=== PATIENT | female | born 1940 | race Caucasian/White ===

== ENCOUNTER → 2017-10-22 08:04 | Outpatient (CLI) | payer MEDICARE, BC, SELFPAY ==
[2017-10-22 09:22] LABS: Absolute Lymphocyte Count 1.45 X10^3/ul (0.83-4.51); Absolute Neutrophil Count 7.7 X10^3/uL (2.0-7.7); Eosinophil# 0.02 X10^3/uL; Eosinophils% 0.2 % (0-5); Hematocrit 44.1 % (37-47); Hemoglobin 14.4 g/dl (12.0-15.0); Lymphocyte # 1.45 X10^3/ul (4.0); Lymphocyte % 14.7 % (19-41); Mean Corp Hgb Conc 32.7 g/gl (32-36); Mean Corpuscular Hgb 30.6 pg (27.0-32.0); Mean Corpuscular Volume 93.6 fL (81-99); Mean Platelet Vol. 10.6 fl (6.2-12.0); Monocyte# 0.68 X10^3/uL; Monocyte% 6.9 % (0-10); Platelet Count 266 K/mm3 (150-450); RBC Distribution Width SD 44.6 fl (35.1-43.9); Red Blood Count 4.71 M/mm3 (4.2-5.4); White Blood Count 9.9 K/mm3 (4.4-11.0)
[2017-10-22 09:35] LABS: POSITIVE COUNT NO; POSITIVE DIFFERENTIAL NO; POSITIVE MORPHOLOGY NO
[2017-10-22 09:46] LABS: ALB/GLOB Ratio 1.1 RATIO (0.9-2.4); AST(SGOT) 12 U/L (15-37); Alanine Aminotransfer ALT/SGPT 24 U/L (13-56); Alkaline Phosphatase 65 U/L (45-117); Anion Gap 7 (5-15); BUN 17 mg/dL (7-18); BUN/Creat Ratio 19.3 RATIO (10-20); Calcium,Total 9.2 mg/dL (8.5-10.1); Chloride 99 mmol/L (98-107); Creatinine, Serum 0.88 mg/dL (0.55-1.02); EST Glomerular Filtration Rate 66 mL/min (>60); Est Glom Filt Rate - Afr Amer 80 mL/min (>60); Globulin 3.7 g/dL (2.2-4.2); Glucose 94 mg/dL (74-106); Potassium 3.3 mmol/L (3.5-5.1); Protein, Total 7.7 g/dL (6.4-8.2); Sodium Level 138 mmol/L (136-145)
== END ==
PROVIDERS: Family Provider Family Medicine; PCP Family Medicine; Visit Provider Internal Medicine Rheumatology
DX: M06.4 Inflammatory polyarthropathy (principal); Z79.899 Other long term (current) drug therapy; M79.7 Fibromyalgia; M18.11 Unilateral primary osteoarthritis of first carpometacarpal joint, right hand; M19.012 Primary osteoarthritis, left shoulder; M15.9 Polyosteoarthritis, unspecified; M17.0 Bilateral primary osteoarthritis of knee
CPT/HCPCS: 36415; 80053; 85025

== ENCOUNTER → 2018-04-10 08:01 | Outpatient (CLI) | payer MEDICARE, BC, SELFPAY ==
[2018-04-10 10:03] LABS: Absolute Lymphocyte Count 1.63 X10^3/ul (0.83-4.51); Absolute Neutrophil Count 3.4 X10^3/uL (2.0-7.7); Basophil# 0.04 X10^3/uL; Basophil% 0.7 % (0-1); Eosinophil# 0.21 X10^3/uL; Eosinophils% 3.6 % (0-5); Hematocrit 41.9 % (37-47); Hemoglobin 13.4 g/dl (12.0-15.0); Lymphocyte # 1.63 X10^3/ul (4.0); Lymphocyte % 28.1 % (19-41); Mean Corpuscular Volume 93.7 fL (81-99); Mean Platelet Vol. 11.1 fl (6.2-12.0); Monocyte# 0.52 X10^3/uL; Neutrophil % 58.4 % (47-70); Platelet Count 237 K/mm3 (150-450); RBC Distribution Width CV 12.9 % (11.6-14.6); RBC Distribution Width SD 44.3 fl (35.1-43.9); Red Blood Count 4.47 M/mm3 (4.2-5.4); White Blood Count 5.8 K/mm3 (4.4-11.0)
[2018-04-10 10:04] LABS: POSITIVE COUNT NO; POSITIVE DIFFERENTIAL NO; POSITIVE MORPHOLOGY NO
[2018-04-10 12:13] LABS: AST(SGOT) 20 U/L (15-37); Alanine Aminotransfer ALT/SGPT 21 U/L (13-56); Albumin, Serum 3.8 g/dL (3.2-5.0); Alkaline Phosphatase 63 U/L (45-117); Anion Gap 8 (5-15); BUN 20 mg/dL (7-18); BUN/Creat Ratio 18.2 RATIO (10-20); Calcium,Total 9.1 mg/dL (8.5-10.1); Chloride 103 mmol/L (98-107); EST Glomerular Filtration Rate 51 mL/min (>60); Est Glom Filt Rate - Afr Amer 62 mL/min (>60); Globulin 3.7 g/dL (2.2-4.2); Glucose 93 mg/dL (74-106); Potassium 3.7 mmol/L (3.5-5.1); Protein, Total 7.5 g/dL (6.4-8.2); Sodium Level 140 mmol/L (136-145)
== END ==
PROVIDERS: Family Provider Family Medicine; PCP Family Medicine; Visit Provider Internal Medicine Rheumatology
DX: M06.4 Inflammatory polyarthropathy (principal); Z79.899 Other long term (current) drug therapy; M79.7 Fibromyalgia; M18.11 Unilateral primary osteoarthritis of first carpometacarpal joint, right hand; M19.012 Primary osteoarthritis, left shoulder; M15.9 Polyosteoarthritis, unspecified; M17.0 Bilateral primary osteoarthritis of knee; K76.0 Fatty (change of) liver, not elsewhere classified; F32.89 Other specified depressive episodes; M51.37 Other intervertebral disc degeneration, lumbosacral region; M47.897 Other spondylosis, lumbosacral region; M18.9 Osteoarthritis of first carpometacarpal joint, unspecified
CPT/HCPCS: 36415; 80053; 85025

== ENCOUNTER → 2018-08-06 15:40 | Outpatient (CLI) | payer MEDICARE, BC, SELFPAY ==
--- NOTE | 2018-08-06 15:45 | CT_ITS ---
STUDY: CT LEFT SHOULDER REASON FOR EXAM: Female, 77 years old. Left shoulder osteoarthritis. RADIATION DOSAGE (If Supplied By Facility): CTDIvol = ( 42.81 ) mGy, DLP = ( 794.33 ) mGycm TECHNIQUE: The patient was scanned in a multi detector CT scanner. High resolution transaxial imaging was performed without the administration of intravenous contrast material. Sagittal and coronal images were reconstructed. Individualized dose optimization techniques were used for this CT. COMPARISON: . Comparison is made with prior MR of the left shoulder dated August 06, 2017. FINDINGS: There is severe osteoarthritis, with severe articular joint space narrowing, osteoarthritic spurring, articular remodeling, and with articular erosions. Normal glenoid rim, neck and visualized scapula. There is evidence of marginal osteophyte formation along the medial aspect of the humeral head with subchondral cystic changes. There is also evidence of hypertrophic arthrosis of the acromioclavicular joint. Normal coracoid process. Normal visualized lateral clavicle. There is moderate osteoarthritis with articular joint space narrowing and with osteoarthritic spurring. There is a Type II morphology (curved), with a neutral orientation. There is cephalad migration of the humeral head suggestive of rotator cuff pathology. CT/Extremity Upper without Contra IMPRESSION: Degenerative changes as described with findings suggestive of rotator cuff pathology. Electronically Signed: Roderick Calderon MD at 15:04 EST Tel [phone], Service support ,
== END ==
PROVIDERS: Family Provider Family Medicine; PCP Family Medicine; Referring Provider Specialist; Visit Provider Specialist
DX: M19.012 Primary osteoarthritis, left shoulder (principal)
CPT/HCPCS: 73200

== ENCOUNTER 2018-09-09 07:08 | Inpatient (IN) | payer MEDICARE, BC, SELFPAY ==
--- NOTE | 2018-08-27 15:11 | EKG12_ITS ---
Test Reason : Blood Pressure : / mmHG Vent. Rate : 069 BPM Atrial Rate : 069 BPM P-R Int : 162 ms QRS Dur : 136 ms QT Int : 444 ms P-R-T Axes : 056 -31 -07 degrees QTc Int : 475 ms Normal sinus rhythm Possible Left atrial enlargement Left axis deviation Right bundle branch block Abnormal ECG Confirmed by CARLY NIXON, ELIZABETH ([id number]), fan mail editor AMARI BUTTERFIELD ([id number]) on 09/02/2018 2:43:21 PM Referred By: Luis Simmons Confirmed By:ELIZABETH CARROLL MD
[2018-08-27 15:37] VITALS: BP 135/65; PULSE 71; RESP 18; TEMP 36.8; O2SAT 97; BMI 35.3
[2018-08-27 17:41] LABS: Absolute Lymphocyte Count 2.22 X10^3/ul (0.83-4.51); Absolute Neutrophil Count 4.5 X10^3/uL (2.0-7.7); Basophil# 0.03 X10^3/uL; Basophil% 0.4 % (0-1); Eosinophil# 0.24 X10^3/uL; Eosinophils% 3.2 % (0-5); Hematocrit 41.4 % (37-47); Hemoglobin 12.9 g/dl (12.0-15.0); Lymphocyte # 2.22 X10^3/ul (4.0); Lymphocyte % 29.2 % (19-41); Mean Corp Hgb Conc 31.2 g/gl (32-36); Mean Corpuscular Hgb 28.8 pg (27.0-32.0); Mean Corpuscular Volume 92.4 fL (81-99); Mean Platelet Vol. 10.6 fl (6.2-12.0); Monocyte# 0.61 X10^3/uL; Neutrophil # 4.49 X10^3/uL (2.7-7.7); Neutrophil % 58.9 % (47-70); Platelet Count 250 K/mm3 (150-450); RBC Distribution Width CV 13.9 % (11.6-14.6); RBC Distribution Width SD 46.8 fl (35.1-43.9); Red Blood Count 4.48 M/mm3 (4.2-5.4); White Blood Count 7.6 K/mm3 (4.4-11.0)
[2018-08-27 17:46] LABS: POSITIVE COUNT NO; POSITIVE DIFFERENTIAL NO; POSITIVE MORPHOLOGY NO
[2018-08-27 18:19] LABS: Anion Gap 11 (5-15); BUN 15 mg/dL (7-18); Calcium,Total 8.7 mg/dL (8.5-10.1); Chloride 104 mmol/L (98-107); EST Glomerular Filtration Rate 57 mL/min (>60); Est Glom Filt Rate - Afr Amer 69 mL/min (>60); Estimated Creatinine Clearance 36.12 ml/min; Glucose 119 mg/dL (74-106); Potassium 3.8 mmol/L (3.5-5.1); Sodium Level 140 mmol/L (136-145); Thyroid Stim Hormone (TSH) 5.01 uIU/mL (0.358-3.74)
[2018-08-27 19:15] LABS: Hemoglobin A1c 5.7 % (4.2-6.3)
--- NOTE | 2018-08-27 22:05 | PCM.HP.BLA ---
History and Physical DATE OF SURGERY: 09/09/2018 SCHEDULED PROCEDURE: left reverse total shoulder arthroplasty HISTORY OF PRESENT ILLNESS: Patient denies any specific trauma or injury. Patient states the pain can reach as high as a 10/10. Her pain is aching and stabbing. Patient is right-hand dominant. Patient does state she has difficult time with activities of daily living that require overhead lifting. She also increased pain with driving or reaching behind her back. Patient does feel weaker in the left arm when compared to the right. Pain does wake her at night. Patient has tried oral medications consisting of [place] with pain management. She has also had previous corticosteroid injections with only temporary relief for a few weeks. Patient has had previous MRI of the left shoulder which does reveal degenerative tearing and atrophy of the rotator cuff tendons was small area consistent with primary osteoarthritis with subsequent rotator cuff tear. Patient does have a previous right total shoulder replacement with Dr. Tavera. Patient currently denies any chest pain, shortness of breath, fevers chills, or recent infections. Patient does have a medical history pertinent for rheumatoid arthritis in which she has been on Enbrel and Plaquenil in which she sees Dr. Dubon. Patient also has fibromyalgia, hypertension, and diabetes which she states is controlled on diet. After failing conservative measures and discussing all treatment options with Dr. Luis Simmons, the patient would like to proceed with a left reverse total shoulder arthroplasty. REVIEW OF SYSTEMS: ROS: Const: Denies anorexia, anxiety, change in appetite, fever, hard of hearing, vision problems and weight change. CV: Denies chest pain, heart murmur, irregular heartbeat and peripheral vascular disease. Resp: Denies asthma, cough, pneumonia, sleep apnea, SOB, tuberculosis and wheezing. GI: Denies constipation, diarrhea, difficulty swallowing, heartburn, nausea, bloody stools and vomiting. : Urinary: denies incontinence. Musculo: Reports trouble walking and weakness, but denies leg swelling and limp. Skin: Denies Raynaud's, history of shingles and tattoo. Neuro: Reports difficulty with balance but denies ambulatory dysfunction, dizziness, numbness/tingling and tremor. Psych: Reports depression, but denies anxiety, insomnia, mental illness and stress. Bro/Lymph: Denies anemia, bleeding/bruising tendency and past transfusion. Reviewed, no changes. PAST MEDICAL HISTORY: Advance Care Plan: Other Directive, LIVING WILL Effective Date: 02/18/2017 Other Directive, POA Effective Date: 02/18/2017 PMH: Medical Problems: Fibromyalgia, High Blood Pressure, Thyroid Disease Diabetes - CONTROLLED Arthritis Accidents: None Surgical Hx: Tubal Ligation - (1964) [place] Carpal Tunnel - 10 YEARS AGO BOTH WRISTS- [facility] Knee Replacement - ABOUT 3 YEARS AGO LEFT KNEE- [place] bladder tuck, RT Shoulder Replacement, ALL Teeth Pulled RT TKR - (09/21/2012) [facility] @ [place] LT Leg Vein Stripping - (2015) [place] Carpal Tunnel Release RT - DR PRUETT AT [facility] RT Hand Surgery - (2016) [facility] Anesthesia Complications: None Assistive Devices: Glasses, Dentures Reviewed and updated. 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 Personal Habits: Smoking: Patient has never smoked.Cigarette Use: Never.Alcohol: Denies use.Drug Use: Denies Use.Enjoy Exercising: Exercises 1-3 X/Week. Reviewed, no changes. VITALS: Ht: 60 Wt: 184lb Wt k.462 BMI: 35.9 BP: 148/88 Pulse: 77 Resp: 16 T: 98.1 T: 36.7C ALLERGIES: Lovastatin Sulfa Paxil MEDICATIONS: Levothyroxine Sodium 125 mcg 1 tab PO daily, Bupropion HCL XL 300 mg 1 tab PO daily, Ropinirole HCL 2 mg 2 qday, Hydrochlorothiazide 25 mg 1 PO q day, Prevacid 30 mg 1 PO q day, Gabapentin 400 mg 2po qday, Aspir-81 81 mg 1 by mouth every day, Plaquenil 200 mg as needed, Fish Oil 1000 mg 1 capsule 1x/day by mouth, Multivitamins 1 by mouth every day, Enbrel 50 mg/ml 1 injection weekly, [place] 5-325 mg 1-2 by mouth every 6 hour as needed pain PRE-OP EXAM: General appearance:NORMAL Other: Eyes: Conjunctivae and lids: NORMAL Pupils: ERR Ears, Nose, Mouth, and Throat: NORMAL Other: Inspection of lips, teeth and gums: NORMAL Other: Neck: Examination of neck: no masses noted. Respiratory: Assessment of respiratory effort: NORMAL Other: Auscultation of lungs: clear to auscultation no wheezes, rhonchi or rales. Cardiovascular: Auscultation of heart: regular rate and rhythm, no murmurs, gallops or rubs. Exam of carotid arteries: NORMAL Other: Gastrointestinal: Exam of abdomen: soft, nontender, nondistended bowel sounds present. PHYSICAL EXAMINATION: Left shoulder is cool to touch without erythema. She has tenderness to palpation over the lateral and anterior left shoulder. There is crepitus with range of motion. Range of motion left shoulder: Forward elevation 100, internal rotation T12 on the left and L5 on the right, external rotation -10 on the left and passive to neutral. Resisted range of motion left shoulder 4/5 supraspinatus strength testing. Sensation intact to light touch to axillary, radial, median, and ulnar nerve distribution. IMAGING STUDIES: 1. X-rays of the left shoulder reveal superior migration of the humeral head with joint space narrowing and inferior osteophyte formation on the humeral head. No acute findings for fracture dislocation. 2. MRI of the left shoulder does reveal femoral head flattening with cystic changes with inferior osteophyte formation. There is degenerative tearing and atrophy of the rotator cuff tendons with small area of full-thickness tearing. This is consistent with primary osteoarthritis with subsequent rotator cuff tear. IMPRESSION: 1. 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 Rheumatoid arthritis 3. Hypertension 4. Fibromyalgia 5. Thyroid disease 6. Diabetes controlled on diet PLAN: Dr. Luis Simmons did discuss and review with the patient all treatment options including surgical versus nonsurgical options. Patient does wish to proceed with the above-stated procedure. Potential risks, benefits, and complications of the procedure were discussed in detail including but not limited to , infection, nerve and blood vessel damage, persistent pain, numbness, tingling, paresthesias, blood clot, pulmonary embolism, and requirement for possible further surgery. The patient expressed full understanding and has no further questions for the doctor. Patient does agree to proceed with the above-stated procedure and has signed the surgery consent form. This dictation was created using voice recognition software. Phonetic and/or grammatical errors may exist.. ___ I have re-examined the patient. There are no clinical changes since date of exam. ___ See progress notes for changes. ___ Dictated on admission Date: Time: Signature:
[2018-09-09] VITALS (9 sets, daily range): BP systolic 99–151; BP diastolic 54–74; PULSE 60–76; RESP 16–18; TEMP 36.5–37.8; O2SAT 94–99; BMI 35.3; BMI 35.4
[2018-09-09] MEDS: Celecoxib 200 MG Capsule 400 MG PO (07:44)
[2018-09-09] MEDS: Acetaminophen 500 MG Tablet 1000 MG PO ×3 (07:44→21:04)
[2018-09-09 07:51] LABS: Bedside Glucose 120 mg/dL (70-110)
[2018-09-09] MEDS: Cefazolin 2 GM in 0.9% Normal Saline 100 ML IV (08:54)
--- NOTE | 2018-09-09 09:58 | PCM.OPRPT ---
Report of Operation Date of Procedure: 09/09/18 Pre-Operative Diagnosis: Left shoulder cuff tear arthropathy Post-Operative Diagnosis: Left shoulder cuff tear arthropathy Surgery/Procedure Performed:: Left reverse total shoulder replacement Description of Surgical Findings:: Stable shoulder rental coordinator: Tiffanie Roberts Type of Anesthesia:: General Anesthesiologist: Sher Adamson Special Medications: 2 g Ancef, 1 g TXA at incision, 1 g TXA closure, 10 mg Decadron, joint cocktail (5 mg Duramorph, 30 mL of 0.5% Ropivicaine, 1000 units of epinephrine, 30 mg of Toradol), 1 g vancomycin IV throughout the case Specimen's removed: Bony cuts Estimated Blood Loss (mL): 100 Fluids Replaced: 900 ml crystalloid Description of Procedure: Components used 1. Reunion glenoid baseplate from [place] for reverse TSA 2. Angwin reunion 32+6 mm Glenosphere 3. [place] reunion 32 mm, 4mm humeral liner 4. [place] reunion reverse TSA humeral adapter tray 4mm 5. [place] reunion humeral stem primary press-fit 12mm size Brief history/Operative indications: 78 yo F with history of L shoulder pain and cuff tear arthropathy. Patient failed conservative measures as mentioned in the H&P. After discussion of risk and benefits of reverse total shoulder replacement including but not limited to blood loss, DVTs, PEs, nerve vessel damage, infection, general risk of anesthesia including loss of life, instability and stiffness patient demonstrating understanding wish to proceed was able to sign informed consent. Medical clearance was obtained. Procedure: On the date of the procedure, patient's L upper extremity was marked in the preoperative area. Patient was taken back to the operating room where they were placed on the table in the supine position. Anesthesia assumed control of the C-spine and airway, then administered anesthetic. All bony prominences were identified well-padded, the head was secured and the patient was placed in the beachchair position at about 35? inclination. Anesthesia remained in control of the C-spine airway throughout the remainder of the procedure. Patient was then appropriately fastened to the table and the L upper extremity was prepped in a sterile fashion. The surgeons then scrubbed. Upon reentering the room, the L upper extremity was draped in a sterile fashion and the incision was marked out. Timeout was called, everyone agreed upon the side, the site, the procedure to be performed, patient identity and antibiotics given. Incision was taken down through skin and subcutaneous tissue, fat down to fascia. The stripe of the deltopectoral interval and cephalic vein were identified and blunt dissection was used to retract the deltoid. The cephalic vein was retracted laterally. Clavipectoral fascia was then incised and a cobra retractor was placed in the wound. The proximal one third of the pectoralis major insertion was released. Pectoralis tendon insertion was used to tenodesed the biceps tendon which was identified in the bicipital groove. Tenodesis was done with #1 Vicryl. Proximally we followed the biceps tendon after transecting it into the rotator interval. The rotator interval was split and the arm was externally rotated. The split was 1 cm medial to the bicipital groove. Subscapularis tendon was released. We released down the anterior portion of the humeral head and a wall elevator was used to release the inferior portion of the humeral head. The arm was externally rotated and the shoulder was dislocated. The humeral head cutting guide was used to make humeral cut. This was done at 20? retroversion. Once his humeral head cut was made humerus was retracted out of the way and the glenoid was exposed. After exposing the glenoid, the labrum and the remaining proximal biceps were debrided. At this time we are able to view the entire outer edge of the glenoid. A central pin was placed we sequentially reamed over this central pin to 32mm. Once this was completed the central pedicle was drilled. The glenoid baseplate was impacted into place. Wound was closely irrigated out with normal saline we then drilled sequentially for 4 screws. Screws were placed superiorly and inferiorly and tightened down the screws. Then anteriorly and posteriorly. Once the screws were appropriately tightened into place the glenoid baseplate was compressed against the exposed subchondral bone. Locking caps were placed and a 32+6 mm glenosphere was impacted into place engaging the Loya taper. The central screw was then tightened into place. Attention was then turned towards the humerus. The humerus was again externally rotated exposing the proximal portion of the humerus. Central canal finder was then used to open up the canal. We reamed to a 12mm reamer. We then broached to a 12mm stem. We trialed the 4mm liner, with the 4mm humeral baseplate. We obtained an adequate reduction at this time with a nice stable shoulder. Good internal rotation to the gluteus, forward elevation to 140?, external rotation to 20?. Final components were then assembled on the back table, trials were removed and the wound was copiously irrigated with normal saline after dislocating the shoulder. Once the final components were assembled they were impacted into place. Shoulder was then reduced and found to be stable with good range of motion. Subscapularis tendon not repairable. The wound was then copiously irrigated out with a 1 L normal saline lavage. The deltopectoral fascia was then closed using #1 Vicryl skin was closed using 2-0 Vicryl interrupted sutures and final skin closure was done with 3-0 Monocryl. Steri-Strips are placed for final skin closure. Sterile dressing was placed patient was then placed in a sling and awakened by anesthesia. Patient was then transferred to the PACU for recovery. Postoperative plan: Patient will be admitted to the hospital overnight. They will get physical therapy starting in 2 weeks with normal postoperative regimen. Patient will be placed on aspirin daily for DVT prophylaxis. The first postoperative appointment will be in 2 weeks for wound check and initiation of phase 1 physical therapy. During the course of the procedure the physician music assistant played a vital role. His intimate knowledge of my steps in the procedure aided in safe and expedient completion of the procedure. The PA played a vital rolls in positioning particularly in obtaining the appropriate beach chair position and securing the patient's body and head to the table. The PA was also vital in the retraction of soft tissues during the exposure and especially the glenoid work as this is a vital part of the procedure to prevent neurovascular damage. the PA was also vital and protecting soft tissues during times of bony cuts and reaming. He also played a vital role in closure with my direct supervision. The PA was also important during reduction and dislocation of the joint and trials intraoperatively. Grafts/Implants Used: Angwin reunion reverse total shoulder - Complications None - Admit VTE Documentation VTE Present on Admission: No VTE Mechan Device Prophylaxis: SCD's, Thigh High BRIGID Hose VTE Pharm Prophylaxis ordered?: Yes
[2018-09-09] MEDS: Scopolamine 1mg/72hr Patch 1 PATCH TD (10:42)
--- NOTE | 2018-09-09 10:50 | RAD_ITS ---
STUDY: X-RAY - LEFT SHOULDER REASON FOR EXAM: Female, 78 years old. Total shoulder arthroplasty. TECHNIQUE: 1 view(s) of the shoulder. COMPARISON: Comparison is made with prior study dated June 26, 2017. FINDINGS: The patient is status post reverse shoulder replacement. There is good alignment. Postoperative soft tissue changes. RAD/Shoulder One View IMPRESSION: Status post left reverse shoulder replacement. There is good alignment. Electronically Signed: Roderick Calderon MD at 13:47 EST Tel [phone], Service support ,
[2018-09-09] MEDS: Lactated Ringers 1,000 ML 125 ML IV ×3 (11:03→22:28)
[2018-09-09 11:16] LABS: Bedside Glucose 110 mg/dL (70-110)
--- NOTE | 2018-09-09 13:59 | PCM.CONS.GEN ---
Reason for Consult Date of Consultation: 09/09/18 Reason for Consultation: Consult requested by Dr. Simmons for postoperative medical management History of Present Illness: The patient is a 78 year old F 78-year-old white female who underwent a left shoulder replacement by Dr. Simmons. Postoperatively, patient is feeling well still has some numbness in her left arm from nerve block. Denies any other complaints. [] Past Medical History Medical History: Medical History (Last Updated 09/09/18 @ 14:03 by Fabrice Bolanos DO) Depression F32.9 Diabetes mellitus type 2, diet-controlled E11.9 Hypothyroidism E03.9 Rheumatoid arthritis M06.9 HTN (hypertension) I10 Allergies lovastatin Allergy (Verified 12/14/15 06:23) Itching paroxetine HCl [From Paxil] Allergy (Verified 12/14/15 06:23) Hives, Itching Sulfa (Sulfonamide Antibiotics) Allergy (Verified 08/27/18 15:16) Itching Home Medications: Ambulatory Orders Medication Instructions Recorded Gabapentin [Neurontin] 800 mg PO QHS 10/05/15 Hydrochlorothiazide [Hctz] 25 mg PO DAILY 10/05/15 Hydrocodone Bitart/Apap 5-325 1 - 2 tablet PO Q6H PRN 10/05/15 [[place] 5MG-325MG] Hydroxychloroquine [Plaquenil] 200 mg PO DAILYCM 10/05/15 Lansoprazole [Prevacid] 30 mg PO DAILY 10/05/15 Levothyroxine [Synthroid] 125 mcg PO DAILY 10/05/15 [place]-3 Fatty Acids [Fish Oil] 1,000 mg PO DAILY 10/05/15 Ropinirole HCl [Requip] 1 mg PO BREAKFAST 10/05/15 Ropinirole HCl [Requip] 2 mg PO QHS 10/05/15 buPROPion XL [Wellbutrin Xl] 300 mg PO DAILY 10/05/15 Multivitamins,Therapeutic 1 tablet PO DAILY 12/13/15 [Multivitamin] Etanercept [Enbrel] 50 mg SQ Q7D 04/18/16 Aspirin [Aspir 81] 81 mg PO DAILY 08/27/18 Surgical History: Surgical History (Last Updated 09/09/18 @ 14:03 by Fabrice Bolanos DO) H/O tubal ligation Z98.51 History of carpal tunnel release Z98.890 History of left knee replacement Z96.652 History of right shoulder replacement Z96.611 Smoking Status: Never smoker Tobacco Use: Non-smoker Alcohol: None Drugs: None - *Family History Maternal History Items: - - no CAD Review of Systems Constitutional: Denies: Anorexia, Chills, Fever Eyes: Denies: Blurred vision, Double vision HEENT: Denies: Head Aches, Sinus Congestion, Sinus Drainage Cardiovascular: Denies: Chest Pain, Palpitations Respiratory: Denies: Cough, Shortness of breath at rest, Sputum production Gastrointestinal: Denies: Abdominal Pain, Nausea, Vomiting Skin: Denies: Dryness, Jaundice Neurological: Denies: Numbness, Tingling, Focal weakness Psychiatric: Denies: Anxiety Hematologic/ Lymphatic: Denies: Easy Bruising, Easy Bleeding, Hx of blood clot Comment: A 10 point review of systems were negative except as mentioned in the history of present illness and the other review of systems. - Physical Exam General: Alert, Cooperative, No apparent distress HEENT: Atraumatic, Normocephalic Oral: Moist Mucosa, No Gingival or Mucosal Lesions/ Ulcerations Neck: No Nodes, Thyroid Normal Size and Texture Lungs: Clear to auscultation, Normal air movement, No rhonchi, No wheeze Cardiovascular: Regular rate, Regular Rhythm, Normal S1, Normal S2 Abdomen: Bowel Sounds Present, Soft, Non Tender, Non-Distended, No Hepato-splenomegaly Extremities: No edema, No Calf Tenderness, - - Left arm bandaged in a sling, did not remove Skin: No rashes, No breakdown Psych/Mental Status: Normal Affect, Appropriate Vital Signs Temp Pulse Resp BP Pulse Ox 36.5 C L 66 16 110/57 L 99 09/09/18 12:02 09/09/18 12:02 09/09/18 12:02 09/09/18 12:02 09/09/18 12:02 Oxygen Flow Rate (L/min) 2 Oxygen Delivery Method Room Air Weight: 85.1 kg Body Mass Index (BMI) 35.4 Finger Stick Blood Glucose 110 Intake and Output for Last 24 Hours 09/07/18 09/08/18 09/09/18 23:59 23:59 23:59 Intake Total 1200 / 1200 Balance 1200 / 1200 POC Glucose 09/09/18 09/09/18 11:12 07:29 POC Glucose 110 120 H Assessment/Plan 1. Diabetes mellitus type 2 Diet controlled A1c from 12.27 was 5.7 Would just monitor for now. 2. HTN Controlled Continue with HCTZ 3. Hypothyroidism continue with Synthroid 4. s/p left shoulder replacement mgmt per orthopaedics 5. DVT prophylaxis: Will defer to the primary service For the consult. The hospital service will follow along during the course of this hospitalization. Code Visit Inpatient E&M: 18861 Init Hosp L2
--- NOTE | 2018-09-09 14:04 | CON.PCM_ITS ---
Reason for Consult Date of Consultation: 09/09/18 Reason for Consultation: Consult requested by Dr. Simmons for postoperative medical management History of Present Illness: The patient is a 78 year old F 78-year-old white female who underwent a left shoulder replacement by Dr. Simmons. Postoperatively, patient is feeling well still has some numbness in her left arm from nerve block. Denies any other complaints. [] Past Medical History Medical History: Medical History (Last Updated 09/09/18 @ 14:03 by Fabrice Bolanos DO) Depression F32.9 Diabetes mellitus type 2, diet-controlled E11.9 Hypothyroidism E03.9 Rheumatoid arthritis M06.9 HTN (hypertension) I10 Allergies lovastatin Allergy (Verified 12/14/15 06:23) Itching paroxetine HCl [From Paxil] Allergy (Verified 12/14/15 06:23) Hives, Itching Sulfa (Sulfonamide Antibiotics) Allergy (Verified 08/27/18 15:16) Itching Home Medications: Ambulatory Orders Medication Instructions Recorded Gabapentin [Neurontin] 800 mg PO QHS 10/05/15 Hydrochlorothiazide [Hctz] 25 mg PO DAILY 10/05/15 Hydrocodone Bitart/Apap 5-325 1 - 2 tablet PO Q6H PRN 10/05/15 [[place] 5MG-325MG] Hydroxychloroquine [Plaquenil] 200 mg PO DAILYCM 10/05/15 Lansoprazole [Prevacid] 30 mg PO DAILY 10/05/15 Levothyroxine [Synthroid] 125 mcg PO DAILY 10/05/15 [place]-3 Fatty Acids [Fish Oil] 1,000 mg PO DAILY 10/05/15 Ropinirole HCl [Requip] 1 mg PO BREAKFAST 10/05/15 Ropinirole HCl [Requip] 2 mg PO QHS 10/05/15 buPROPion XL [Wellbutrin Xl] 300 mg PO DAILY 10/05/15 Multivitamins,Therapeutic 1 tablet PO DAILY 12/13/15 [Multivitamin] Etanercept [Enbrel] 50 mg SQ Q7D 04/18/16 Aspirin [Aspir 81] 81 mg PO DAILY 08/27/18 Surgical History: Surgical History (Last Updated 09/09/18 @ 14:03 by Fabrice Bolanos DO) H/O tubal ligation Z98.51 History of carpal tunnel release Z98.890 History of left knee replacement Z96.652 History of right shoulder replacement Z96.611 Smoking Status: Never smoker Tobacco Use: Non-smoker Alcohol: None Drugs: None - *Family History Maternal History Items: - - no CAD Review of Systems Constitutional: Denies: Anorexia, Chills, Fever Eyes: Denies: Blurred vision, Double vision HEENT: Denies: Head Aches, Sinus Congestion, Sinus Drainage Cardiovascular: Denies: Chest Pain, Palpitations Respiratory: Denies: Cough, Shortness of breath at rest, Sputum production Gastrointestinal: Denies: Abdominal Pain, Nausea, Vomiting Skin: Denies: Dryness, Jaundice Neurological: Denies: Numbness, Tingling, Focal weakness Psychiatric: Denies: Anxiety Hematologic/ Lymphatic: Denies: Easy Bruising, Easy Bleeding, Hx of blood clot Comment: A 10 point review of systems were negative except as mentioned in the history of present illness and the other review of systems. - Physical Exam General: Alert, Cooperative, No apparent distress HEENT: Atraumatic, Normocephalic Oral: Moist Mucosa, No Gingival or Mucosal Lesions/ Ulcerations Neck: No Nodes, Thyroid Normal Size and Texture Lungs: Clear to auscultation, Normal air movement, No rhonchi, No wheeze Cardiovascular: Regular rate, Regular Rhythm, Normal S1, Normal S2 Abdomen: Bowel Sounds Present, Soft, Non Tender, Non-Distended, No Hepato- splenomegaly Extremities: No edema, No Calf Tenderness, - - Left arm bandaged in a sling, did not remove Skin: No rashes, No breakdown Psych/Mental Status: Normal Affect, Appropriate Vital Signs Temp Pulse Resp BP Pulse Ox 36.5 C L 66 16 110/57 L 99 09/09/18 12:02 09/09/18 12:02 09/09/18 12:02 09/09/18 12:02 09/09/18 12:02 Oxygen Flow Rate (L/min) 2 Oxygen Delivery Method Room Air Weight: 85.1 kg Body Mass Index (BMI) 35.4 Finger Stick Blood Glucose 110 Intake and Output for Last 24 Hours 09/07/18 09/08/18 09/09/18 23:59 23:59 23:59 Intake Total 1200 / 1200 Balance 1200 / 1200 POC Glucose 09/09/18 09/09/18 11:12 07:29 POC Glucose 110 120 H Assessment/Plan 1. Diabetes mellitus type 2 Diet controlled A1c from 12.27 was 5.7 Would just monitor for now. 2. HTN Controlled Continue with HCTZ 3. Hypothyroidism continue with Synthroid 4. s/p left shoulder replacement mgmt per orthopaedics 5. DVT prophylaxis: Will defer to the primary service For the consult. The hospital service will follow along during the course of this hospitalization. Code Visit Inpatient E&M: 19568 Init Hosp L2
[2018-09-09] MEDS: Famotidine 20 MG Tablet PO (14:15)
[2018-09-09] MEDS: Cefazolin 1 GM/50 ML BAG IV (16:40)
[2018-09-09] MEDS: buPROPion (XL) 300 MG TABLET.XL PO (21:03)
[2018-09-09] MEDS: Senna/Docusate Sodium 1 Tablet 2 TABLET PO (21:03)
[2018-09-09] MEDS: Gabapentin 400 MG Capsule 800 MG PO (21:03)
[2018-09-09] MEDS: Meloxicam 7.5 MG Tablet PO (21:04)
[2018-09-09] MEDS: Morphine 2 MG/ML Syringe IV (22:08)
[2018-09-09] MEDS: Pramipexole Di-HCl 1 MG Tablet PO (22:14)
[2018-09-09] MEDS: Ondansetron 4 MG/2 ML Vial IV (22:15)
[2018-09-10] MEDS: proMETHazine 25 MG/ML Syringe 12.5 MG IV (00:54)
[2018-09-10] MEDS: Ketorolac 15 MG/ML Vial IV (00:54)
[2018-09-10] MEDS: Cefazolin 1 GM/50 ML BAG IV (00:56)
--- NOTE | 2018-09-10 00:56 | NURSING ---
Addendum entered by Teresita Holloway 09/10/18 03:27: PT C/O FEELING LIKE HER BLADDER IS NOT EMPTYING, BLADDER SCANNED AFTER VOIDING 300CC, FOR 700CC. WILL CONTINUE TO MONITOR THE PTS OUTPUT. Original Note: pt c/o nausea, phenergan given, also c/o pain 03/10 to the left shoulder, toradol given
[2018-09-10 03:00] VITALS: BP 116/54; PULSE 74; RESP 16; TEMP 36.9; O2SAT 93
[2018-09-10] MEDS: Acetaminophen 500 MG Tablet 1000 MG PO ×3 (06:46→22:29)
[2018-09-10] MEDS: Levothyroxine 125 MCG Tablet PO (06:46)
[2018-09-10] MEDS: Lactated Ringers 1,000 ML 125 ML IV (07:24)
--- NOTE | 2018-09-10 07:25 | NURSING ---
pt awoken for am meds, very drowsy, ambulated to the restroom, voided only 50 cc, pt st cathed for 1000cc urine. sleeping, o2 on at 2lnc
[2018-09-10 07:45] VITALS: BP 116/60; PULSE 73; RESP 18; TEMP 36.8; O2SAT 92
[2018-09-10] MEDS: Famotidine 20 MG Tablet PO (07:48)
[2018-09-10] MEDS: Aspirin 325 MG Tablet PO (07:48)
[2018-09-10] MEDS: Multivitamins,Therapeutic Tablet 1 TABLET PO (07:48)
[2018-09-10] MEDS: Pramipexole Di-HCl 0.5 MG Tablet PO (07:48)
[2018-09-10] MEDS: Hydroxychloroquine 200 MG Tablet PO (07:48)
[2018-09-10] MEDS: Pantoprazole Sodium 40 MG Tablet PO (07:49)
[2018-09-10] MEDS: hydroCHLOROthiazide 25 MG Tablet PO (07:49)
[2018-09-10] MEDS: Meloxicam 7.5 MG Tablet PO ×2 (07:49→22:28)
--- NOTE | 2018-09-10 09:14 | PN.ORTHO_ITS ---
Subjective: The patient was sitting in bed upon examination. Patient denies any chest pain, shortness of breath, dizziness, lightheadedness, nausea or vomiting, or calf pain. Pain is controlled on medications. No adverse overnight events. Patient did have nausea overnight but states this is improved this morning. Patient currently is very drowsy and sleepy since getting morphine and Phenergan overnight. Objective: Vital signs stable, afebrile. patient currently on 2 L of nasal cannula oxygen Dressing is C/D/I Ultra-sling fitting appropriately Sensation intact to axillary, radial, median, and ulnar distribution Motor intact to AIN, PIN, and ulnar nerve - Physical Exam General: Alert, Oriented x3, Cooperative, No apparent distress Vital Signs Temp Pulse Resp BP Pulse Ox 98.2 F 73 18 116/60 92 09/10/18 07:45 09/10/18 07:45 09/10/18 07:45 09/10/18 07:45 09/10/18 07:45 Oxygen Flow Rate (L/min) 2 Oxygen Delivery Method Nasal Cannula Weight: 85.1 kg Body Mass Index (BMI) 35.4 Finger Stick Blood Glucose 110 Intake and Output for Last 24 Hours 09/08/18 09/09/18 09/10/18 23:59 23:59 23:59 Intake Total 2771 / 2771 1029 / 1029 Output Total 500 / 500 1100 / 1100 Balance 2271 / 2271 -71 / -71 POC Glucose 09/09/18 11:12 POC Glucose 110 Medical Necessity - Tobacco Use Smoking Status: Never smoker Tobacco Use: Non-smoker Assessment/Plan 1. S/P left reverse total shoulder arthroplasty POD #1 2. Continue Pain Medications: Tylenol and OxyIR 3. DVT Prophylaxis: Aspirin 325 mg once daily for 2 weeks postoperatively 4. PT/OT: Outpatient formal physical therapy will begin 2 weeks postoperatively. While in the hospital patient can work on elbow, wrist, hand range of motion only. Okay to do pendulum exercises. No range of motion of the left shoulder. 5. Continue postoperative medical management per medicine 6. Encouraged Incentive Spirometry 7. Disposition: Patient is not ready for discharge today. Plan will be for possible discharge home tomorrow. I would like physical therapy and oc cupational therapy evaluation to determine if patient is safe to go home. Patient lives with her son. This is her nondominant left shoulder that required surgery.
--- NOTE | 2018-09-10 09:32 | PCM.PN.HOSP ---
Subjective: Doing well, pain is controlled. States that sensation in her left arm has returned back to normal today. Denies any fevers, chills, shortness of breath, chest pain. Did require to be straight cathed x1 Vitals/I&O's: Vital Signs Temp Pulse Resp BP Pulse Ox 98.2 F 73 18 116/60 92 09/10/18 07:45 09/10/18 07:45 09/10/18 07:45 09/10/18 07:45 09/10/18 07:45 Oxygen Flow Rate (L/min) 2 Oxygen Delivery Method Nasal Cannula Weight: 187 lb 9.814 oz Body Mass Index (BMI) 35.4 Finger Stick Blood Glucose 110 Intake and Output for Last 24 Hours 09/08/18 09/09/18 09/10/18 23:59 23:59 23:59 Intake Total 2771 / 2771 1029 / 1029 Output Total 500 / 500 1100 / 1100 Balance 2271 / 2271 -71 / -71 General: Alert, Oriented x3, Cooperative, No apparent distress HEENT: Atraumatic, PERRLA, EOMI, Normocephalic Oral: Moist Mucosa Neck: Supple, No JVD Lungs: Clear to auscultation, Normal air movement, No rhonchi, No wheeze, No rales Cardiovascular: Regular rate, Regular Rhythm, Normal S1, Normal S2, No murmurs Abdomen: Soft, Non Tender, Non-Distended, No Hepato-splenomegaly Extremities: No edema, Capillary Refill Less than 3 Seconds, - - Left arm in sling dressing intact Skin: No rashes, No breakdown, Incision - Dressing intact Neurological: Neuro grossly intact, Sensory exam intact to light touch and pain, - - Able to move fingers on the left Psych/Mental Status: Normal Affect, Appropriate Laboratory Results 09/09/18 11:12: POC Glucose 110 Current Medications Acetaminophen (Tylenol) 1,000 mg PO Q8 [facility] Last Admin: 09/10/18 06:46 Dose: 1,000 mg Aspirin (Aspirin) 325 mg PO DAILY@0800 [facility] Last Admin: 09/10/18 07:48 Dose: 325 mg Bupropion HCl (Wellbutrin Xl) 300 mg PO QHS [facility] Last Admin: 09/09/18 21:03 Dose: 300 mg Famotidine (Pepcid) 20 mg PO DAILY [facility] Last Admin: 09/10/18 07:48 Dose: 20 mg Gabapentin (Neurontin) 800 mg PO QHS [facility] Last Admin: 09/09/18 21:03 Dose: 800 mg Hydrochlorothiazide (Hctz) 25 mg PO DAILY [facility] Last Admin: 09/10/18 07:49 Dose: 25 mg [facility]xych[facility]oquine [facility] Admin: 09/10/18 07:48 Dose: 200 mg Lactated Ringer's () 1,000 mls @ 125 mls/hr IV .Q8H [facility] Last Admin: 09/10/18 07:24 Dose: 125 mls/hr Ketorolac Tromethamine (Toradol) 15 mg IV Q6H PRN PRN PRN Reason: PAIN Last Admin: 09/10/18 00:54 Dose: 15 mg Levothyroxine Sodium (Synthroid) 125 mcg PO DAILY@0600 [facility] Last Admin: 09/10/18 06:46 Dose: 125 mcg Meloxicam (Mobic) 7.5 mg PO BID [facility] Last Admin: 09/10/18 07:49 Dose: 7.5 mg Morphine Sulfate () 2 - 4 mg IV Q2H PRN PRN PRN Reason: Severe pain (6-10) Last Admin: 09/09/18 22:08 Dose: 2 mg Morphine Sulfate () 2 - 4 mg IV Q2H PRN PRN PRN Reason: Severe pain (6-10) Multivitamins (Multivitamin) [facility] Last Admin: 09/10/18 07:48 Dose: 1 tablet Nutritional Formula (Lactose Free) (Ensure Enlive) 120 ml PO TIDCM [facility] Last Admin: 09/10/18 07:48 Dose: 120 ml Ondansetron HCl (Zofran) 4 mg IV Q6H PRN PRN PRN Reason: Nausea Last Admin: 09/09/18 22:15 Dose: 4 mg Oxycodone HCl (Oxyir) 5 - 10 mg PO Q4H PRN PRN PRN Reason: PAIN Pantoprazole Sodium (Protonix) 40 mg PO DAILY [facility] Last Admin: 09/10/18 07:49 Dose: 40 mg Pramipexole Dihydrochloride (Mirapex) 0.5 mg PO BREAKFAST [facility] Last Admin: 09/10/18 07:48 Dose: 0.5 mg Pramipexole Dihydrochloride (Mirapex) 1 mg PO QHS [facility] Last Admin: 09/09/18 22:14 Dose: 1 mg Scopolamine HBr (Transderm-Scop) 1 patch TD Q3D [facility] Last Admin: 09/09/18 10:42 Dose: 1 patch Senna/Docusate Sodium (Senokot-S, [place]-Colace) 2 tablet PO BID PRN PRN PRN Reason: Constipation Last Admin: 09/09/18 21:03 Dose: 2 tablet Sodium Chloride () 5 - 15 ml IV UD PRN PRN Reason: SALINE FLUSH Medical Necessity - Tobacco Use Smoking Status: Never smoker Tobacco Use: Non-smoker Assessment/Plan 1. Status post left shoulder replacement postop day 1 -Pain control per primary -PT/OT -Medically stable for discharge if she is able to urinate on her own 2. Hypertension -Controlled -Continue with hydrochlorothiazide 3. Hypothyroidism -Stable, TSH 5.01. Follow-up as an outpatient -Continue with Synthroid 4. DM 2 -Diet controlled current A1c is 5.7 -Continue with Accu-Cheks 5. Rheumatoid arthritis -Stable -Continue with Plaquenil DVT: Aspirin per primary Code Visit Inpatient E&M: 61755 Subs Hosp L2
--- NOTE | 2018-09-10 09:37 | PN_ITS ---
Subjective: Doing well, pain is controlled. States that sensation in her left arm has returned back to normal today. Denies any fevers, chills, shortness of breath, chest pain. Did require to be straight cathed x1 Vitals/I&O's: Vital Signs Temp Pulse Resp BP Pulse Ox 98.2 F 73 18 116/60 92 09/10/18 07:45 09/10/18 07:45 09/10/18 07:45 09/10/18 07:45 09/10/18 07:45 Oxygen Flow Rate (L/min) 2 Oxygen Delivery Method Nasal Cannula Weight: 187 lb 9.814 oz Body Mass Index (BMI) 35.4 Finger Stick Blood Glucose 110 Intake and Output for Last 24 Hours 09/08/18 09/09/18 09/10/18 23:59 23:59 23:59 Intake Total 2771 / 2771 1029 / 1029 Output Total 500 / 500 1100 / 1100 Balance 2271 / 2271 -71 / -71 General: Alert, Oriented x3, Cooperative, No apparent distress HEENT: Atraumatic, PERRLA, EOMI, Normocephalic Oral: Moist Mucosa Neck: Supple, No JVD Lungs: Clear to auscultation, Normal air movement, No rhonchi, No wheeze, No rales Cardiovascular: Regular rate, Regular Rhythm, Normal S1, Normal S2, No murmurs Abdomen: Soft, Non Tender, Non-Distended, No Hepato-splenomegaly Extremities: No edema, Capillary Refill Less than 3 Seconds, - - Left arm in sling dressing intact Skin: No rashes, No breakdown, Incision - Dressing intact Neurological: Neuro grossly intact, Sensory exam intact to light touch and pain, - - Able to move fingers on the left Psych/Mental Status: Normal Affect, Appropriate Laboratory Results 09/09/18 11:12: POC Glucose 110 Current Medications Acetaminophen (Tylenol) 1,000 mg PO Q8 [facility] Last Admin: 09/10/18 06:46 Dose: 1,000 mg Aspirin (Aspirin) 325 mg PO DAILY@0800 [facility] Last Admin: 09/10/18 07:48 Dose: 325 mg Bupropion HCl (Wellbutrin Xl) 300 mg PO QHS [facility] Last Admin: 09/09/18 21:03 Dose: 300 mg Famotidine (Pepcid) 20 mg PO DAILY [facility] Last Admin: 09/10/18 07:48 Dose: 20 mg Gabapentin (Neurontin) 800 mg PO QHS [facility] Last Admin: 09/09/18 21:03 Dose: 800 mg Hydrochlorothiazide (Hctz) 25 mg PO DAILY [facility] Last Admin: 09/10/18 07:49 Dose: 25 mg Hydroxychloroquine S[facility] ([facility]il) [facility] Last Admin: 09/10/18 07:48 Dose: 200 mg Lactated Ringer's () 1,000 mls @ 125 mls/hr IV .Q8H [facility] Last Admin: 09/10/18 07:24 Dose: 125 mls/hr Ketorolac Tromethamine (Toradol) 15 mg IV Q6H PRN PRN PRN Reason: PAIN Last Admin: 09/10/18 00:54 Dose: 15 mg Levothyroxine Sodium (Synthroid) 125 mcg PO DAILY@0600 [facility] Last Admin: 09/10/18 06:46 Dose: 125 mcg Meloxicam (Mobic) 7.5 mg PO BID [facility] Last Admin: 09/10/18 07:49 Dose: 7.5 mg Morphine Sulfate () 2 - 4 mg IV Q2H PRN PRN PRN Reason: Severe pain (6-10) Last Admin: 09/09/18 22:08 Dose: 2 mg Morphine Sulfate () 2 - 4 mg IV Q2H PRN PRN PRN Reason: Severe pain (6-10) Multivitamins (Multivitamin) [facility] Last Admin: 09/10/18 07:48 Dose: 1 tablet Nutritional Formula (Lactose Free) (Ensure Enlive) 120 ml PO TIDCM [facility] Last Admin: 09/10/18 07:48 Dose: 120 ml Ondansetron HCl (Zofran) 4 mg IV Q6H PRN PRN PRN Reason: Nausea Last Admin: 09/09/18 22:15 Dose: 4 mg Oxycodone HCl (Oxyir) 5 - 10 mg PO Q4H PRN PRN PRN Reason: PAIN Pantoprazole Sodium (Protonix) 40 mg PO DAILY [facility] Last Admin: 09/10/18 07:49 Dose: 40 mg Pramipexole Dihydrochloride (Mirapex) 0.5 mg PO BREAKFAST [facility] Last Admin: 09/10/18 07:48 Dose: 0.5 mg Pramipexole Dihydrochloride (Mirapex) 1 mg PO QHS [facility] Last Admin: 09/09/18 22:14 Dose: 1 mg Scopolamine HBr (Transderm-Scop) 1 patch TD Q3D [facility] Last Admin: 09/09/18 10:42 Dose: 1 patch Senna/Docusate Sodium (Senokot-S, [place]-Colace) 2 tablet PO BID PRN PRN PRN Reason: Constipation Last Admin: 09/09/18 21:03 Dose: 2 tablet Sodium Chloride () 5 - 15 ml IV UD PRN PRN Reason: SALINE FLUSH Medical Necessity - Tobacco Use Smoking Status: Never smoker Tobacco Use: Non-smoker Assessment/Plan 1. Status post left shoulder replacement postop day 1 -Pain control per primary -PT/OT -Medically stable for discharge if she is able to urinate on her own 2. Hypertension -Controlled -Continue with hydrochlorothiazide 3. Hypothyroidism -Stable, TSH 5.01. Follow-up as an outpatient -Continue with Synthroid 4. DM 2 -Diet controlled current A1c is 5.7 -Continue with Accu-Cheks 5. Rheumatoid arthritis -Stable -Continue with Plaquenil DVT: Aspirin per primary Code Visit Inpatient E&M: 05739 Subs Hosp L2
--- NOTE | 2018-09-10 10:45 | CASEMGMT ---
RN CM Face to Face with patient for initial transition planning/care coordination assessment. RN CM introduced self and role at [facility]. Patient sitting up in chair, alert and oriented, son Ray at bedside. Patient willing to participate and is somewhat drowsy. Son able to assist with answers. Care providers, pharmacy, and demographics verified. Patient wishes to discharge home with son. Patient is to follow-up at [facility] regarding HHC vs Outpatient therapy. Patient and son state they have no further needs or concerns at this time. CM to follow for discharge planning needs that may arise. PCP: Bandar Smith Specialists: None Preferred Pharmacy: [facility] Insurance: [facility] Prescription Benefit: Yes Living Will/HPOA: Yes, anna Bell LNOK: son Living Arrangements: Patient lives with son who can take off work to assist patient at home. Transportation: Son DME/HHC: Patient has raised toilet seat and grab bars. Disposition Plan: Patient to discharge home with family support and follow-up plans in place. Lesia MARTIN, RN, CM
[2018-09-10] MEDS: Ondansetron 4 MG/2 ML Vial IV (11:16)
[2018-09-10 14:30] VITALS: BP 119/70; PULSE 70; RESP 18; TEMP 36.7; O2SAT 100
[2018-09-10 20:29] VITALS: BP 133/69; PULSE 74; RESP 20; TEMP 36.6; O2SAT 97
[2018-09-10] MEDS: Pramipexole Di-HCl 1 MG Tablet PO (22:28)
[2018-09-10] MEDS: Gabapentin 400 MG Capsule 800 MG PO (22:28)
[2018-09-10] MEDS: buPROPion (XL) 300 MG TABLET.XL PO (22:29)
[2018-09-11 02:35] VITALS: BP 137/68; PULSE 77; RESP 22; TEMP 37.4; O2SAT 93
[2018-09-11 06:14] LABS: Anion Gap 6 (5-15); BUN 11 mg/dL (7-18); BUN/Creat Ratio 13.8 RATIO (10-20); Calcium,Total 8.3 mg/dL (8.5-10.1); Chloride 104 mmol/L (98-107); EST Glomerular Filtration Rate 74 mL/min (>60); Est Glom Filt Rate - Afr Amer 90 mL/min (>60); Estimated Creatinine Clearance 44.44 ml/min; Glucose 101 mg/dL (74-106); Potassium 3.9 mmol/L (3.5-5.1); Sodium Level 138 mmol/L (136-145)
[2018-09-11] MEDS: Acetaminophen 500 MG Tablet 1000 MG PO (06:23)
[2018-09-11] MEDS: Levothyroxine 125 MCG Tablet PO (06:23)
--- NOTE | 2018-09-11 07:04 | PCM.PN.ORT ---
Subjective: The patient was sitting in bed upon examination. Patient denies any chest pain, shortness of breath, dizziness, lightheadedness, nausea or vomiting, or calf pain. Pain is controlled on medications. No adverse overnight events. Patient is doing better than yesterday. Numbness and tingling is resolved. Patient has been able to urinate on her own. She is ready for discharge home. She lives with her son and her son is going to help. Objective: Vital signs stable, afebrile Dressing is C/D/I Ultra-sling fitting appropriately Sensation intact to axillary, radial, median, and ulnar distribution Motor intact to AIN, PIN, and ulnar nerve - Physical Exam General: Alert, Oriented x3, Cooperative, No apparent distress Vital Signs Temp Pulse Resp BP Pulse Ox 99.3 F H 77 22 H 137/68 H 93 09/11/18 02:35 09/11/18 02:35 09/11/18 02:35 09/11/18 02:35 09/11/18 02:35 Oxygen Flow Rate (L/min) 2 Oxygen Delivery Method Room Air Weight: 85.1 kg Body Mass Index (BMI) 35.4 Finger Stick Blood Glucose 110 Intake and Output for Last 24 Hours 09/09/18 09/10/18 09/11/18 23:59 23:59 23:59 Intake Total 2771 / 2771 2994 / 2994 60 / 60 Output Total 500 / 500 2450 / 2450 Balance 2271 / 2271 544 / 544 60 / 60 Laboratory Tests Past 24 Hrs 09/11/18 05:00 Sodium 138 Potassium 3.9 Chloride 104 Carbon Dioxide 28.0 Anion Gap 6 BUN 11 Creatinine 0.80 Estim Creat Clear Calc 44.44 Est GFR (MDRD) Af Amer 90 Est GFR (MDRD) Non-Af 74 BUN/Creatinine Ratio 13.8 Glucose 101 Calcium 8.3 L Medical Necessity - Tobacco Use Smoking Status: Never smoker Tobacco Use: Non-smoker Assessment/Plan 1. S/P left reverse total shoulder arthroplasty POD #2 2. Continue Pain Medications: Tylenol and OxyIR 3. DVT Prophylaxis: Aspirin 325 mg once daily for 2 weeks postoperatively 4. PT/OT: Outpatient formal physical therapy will begin 2 weeks postoperatively. While in the hospital patient can work on elbow, wrist, hand range of motion only. Okay to do pendulum exercises. No range of motion of the left shoulder. 5. Continue postoperative medical management per medicine 6. Encouraged Incentive Spirometry 7. Disposition: Orthopedically stable, plan will be for discharge home today. Prescriptions will be E scribed to [facility] pharmacy. Patient will follow-up per postop instructions. Patient has family that will be assisting her at home.
--- NOTE | 2018-09-11 07:13 | DCINST_ITS ---
Discharge Diet: No Restrictions Discharge Activity: May Not Drive May shower in (days): 1 - Turned dressing away from water Ice area for (Minutes): 20 - Ice area for 20 minutes each hour while awake Keep extremity elevated above heart level: Operative Extremity Call your doctor if your incision/area has: Continuous Slow Oozing, Sudden Increased Bleeding, Increased Pain/ Swelling, Increased Redness, Foul Smelling Discharge Call your doctor if you observe: Fever of 101 or Higher, Coldness, Increased Pain, Numbness or Tingling, Change in Color Remove Dressing in (days):: 3 - Okay to remove dressing on September 14, 2018 Additional Instructions: Follow [facility] postop instructions Do not take [place] at home while taking the oxycodone. Rheumatoid arthritis medications: Do not take Enbrel until seen 2 weeks postoperatively. Do not take omega-3 fish oil until 2 weeks postoperatively. Allergies/Adverse Reactions: Allergies lovastatin Allergy (Verified 12/14/15 06:23) Itching paroxetine HCl [From Paxil] Allergy (Verified 12/14/15 06:23) Hives, Itching Sulfa (Sulfonamide Antibiotics) Allergy (Verified 08/27/18 15:16) Itching Medications to take at Discharge Gabapentin [Neurontin] 800 mg PO QHS 10/05/15 Hydrochlorothiazide [Hctz] 25 mg PO DAILY 10/05/15 Hydroxychloroquine [Plaquenil] 200 mg PO DAILYCM 10/05/15 Lansoprazole [Prevacid] 30 mg PO DAILY 10/05/15 Levothyroxine [Synthroid] 125 mcg PO DAILY 10/05/15 Ropinirole HCl [Requip] 1 mg PO BREAKFAST 10/05/15 Ropinirole HCl [Requip] 2 mg PO QHS 10/05/15 buPROPion XL [Wellbutrin Xl] 300 mg PO DAILY 10/05/15 Multivitamins,Therapeutic [Multivitamin] 1 tablet PO DAILY 12/13/15 Acetaminophen [Tylenol] 1,000 mg PO Q8 #90 tablet 09/11/18 Aspirin 325 mg PO DAILY@0800 #12 tablet 09/11/18 Oxycodone [Oxyir] 5 - 10 mg PO Q4H PRN PRN 5 Days #60 tablet 09/11/18 Senna/Docusate Sodium [Senokot-S] 2 tablet PO BID PRN PRN #20 tablet 09/11/18 The following prescriptions were given: Oxycodone [Oxyir] 5 - 10 mg PO Q4H PRN PRN 5 Days #60 tablet PRN Reason: Pain Acetaminophen [Tylenol] 1,000 mg PO Q8 #90 tablet Aspirin 325 mg PO DAILY@0800 #12 tablet Senna/Docusate Sodium [Senokot-S] 2 tablet PO BID PRN PRN #20 tablet PRN Reason: Constipation Primary Care Physician: Bandar Smith MD [Primary Care Provider] - Test Results: Test results from this visit will be discussed in further detail at your follow- up appointment, if applicable. Please Follow Up With: Tuan Childs PA-C When: 09/23/18 @ 10:00am Please Follow Up With: [facility] When: 09/23/18 @ 11:00 with Mark
[2018-09-11] MEDS: Multivitamins,Therapeutic Tablet 1 TABLET PO (08:01)
[2018-09-11] MEDS: Pantoprazole Sodium 40 MG Tablet PO (08:01)
[2018-09-11] MEDS: hydroCHLOROthiazide 25 MG Tablet PO (08:01)
[2018-09-11] MEDS: Aspirin 325 MG Tablet PO (08:02)
[2018-09-11] MEDS: Meloxicam 7.5 MG Tablet PO (08:02)
[2018-09-11] MEDS: Hydroxychloroquine 200 MG Tablet PO (08:02)
[2018-09-11] MEDS: Famotidine 20 MG Tablet PO (08:02)
[2018-09-11] MEDS: Pramipexole Di-HCl 0.5 MG Tablet PO (08:02)
[2018-09-11 08:10] VITALS: BP 129/70; PULSE 70; RESP 18; TEMP 37; O2SAT 94
--- NOTE | 2018-09-11 08:42 | PCM.PN.HOSP ---
Subjective: Doing well, pain is well controlled. Able to move her fingers in her left hand. Denies any fevers, chills, shortness of breath, chest pain. Urinating on her own Vitals/I&O's: Vital Signs Temp Pulse Resp BP Pulse Ox 98.6 F 70 18 129/70 H 94 09/11/18 08:10 09/11/18 08:10 09/11/18 08:10 09/11/18 08:10 09/11/18 08:10 Oxygen Flow Rate (L/min) 2 Oxygen Delivery Method Room Air Weight: 187 lb 9.814 oz Body Mass Index (BMI) 35.4 Finger Stick Blood Glucose 110 Intake and Output for Last 24 Hours 09/09/18 09/10/18 09/11/18 23:59 23:59 23:59 Intake Total 2771 / 2771 2994 / 2994 60 / 60 Output Total 500 / 500 2450 / 2450 Balance 2271 / 2271 544 / 544 60 / 60 General: Alert, Oriented x3, Cooperative, No apparent distress HEENT: Atraumatic, PERRLA, EOMI, Normocephalic Oral: Moist Mucosa Neck: Supple, No JVD Lungs: Clear to auscultation, Normal air movement, No rhonchi, No wheeze, No rales Cardiovascular: Regular rate, Regular Rhythm, Normal S1, Normal S2, No murmurs Abdomen: Soft, Non Tender, Non-Distended, No Hepato-splenomegaly Extremities: No edema, Capillary Refill Less than 3 Seconds, - - Left arm in sling dressing intact Skin: No rashes, No breakdown, Incision - Dressing intact Neurological: Neuro grossly intact, Sensory exam intact to light touch and pain, - - Able to move fingers on the left Psych/Mental Status: Normal Affect, Appropriate Laboratory Results 09/11/18 05:00: Sodium 138, Potassium 3.9, Chloride 104, Carbon Dioxide 28.0, Anion Gap 6, BUN 11, Creatinine 0.80, Estim Creat Clear Calc 44.44, Est GFR (MDRD) Af Amer 90, Est GFR (MDRD) Non-Af 74, BUN/Creatinine Ratio 13.8, Glucose 101, Calcium 8.3 L Current Medications Acetaminophen (Tylenol) 1,000 mg PO Q8 [facility] Last Admin: 09/11/18 06:23 Dose: 1,000 mg Aspirin (Aspirin) 325 mg PO DAILY@0800 [facility] Last Admin: 09/11/18 08:02 Dose: 325 mg Bupropion HCl (Wellbutrin Xl) 300 mg PO QHS [facility] Last Admin: 09/10/18 22:29 Dose: 300 mg Famotidine (Pepcid) 20 mg PO DAILY [facility] Last Admin: 09/11/18 08:02 Dose: 20 mg Gabapentin (Neurontin) 800 mg PO QHS [facility] Last Admin: 09/10/18 22:28 Dose: 800 mg Hydrochlorothiazide (Hctz) 25 mg PO DAILY [facility] Last Admin: 09/11/18 08:01 Dose: 25 mg [facility]xychloroquine [facility] ([facility]il) [facility] Last Admin: 09/11/18 08:02 Dose: 200 mg Ketorolac Tromethamine (Toradol) 15 mg IV Q6H PRN PRN PRN Reason: PAIN Last Admin: 09/10/18 00:54 Dose: 15 mg Levothyroxine Sodium (Synthroid) 125 mcg PO DAILY@0600 [facility] Last Admin: 09/11/18 06:23 Dose: 125 mcg Meloxicam (Mobic) 7.5 mg PO BID [facility] Last Admin: 09/11/18 08:02 Dose: 7.5 mg Morphine Sulfate () 2 - 4 mg IV Q2H PRN PRN PRN Reason: Severe pain (6-10) Last Admin: 09/09/18 22:08 Dose: 2 mg Morphine Sulfate () 2 - 4 mg IV Q2H PRN PRN PRN Reason: Severe pain (6-10) Multivitamins (Multivitamin) [facility] Last Admin: 09/11/18 08:01 Dose: 1 tablet Nutritional Formula (Lactose Free) (Ensure Enlive) 120 ml PO TIDCM [facility] Last Admin: 09/11/18 08:08 Dose: 120 ml Ondansetron HCl (Zofran) 4 mg IV Q6H PRN PRN PRN Reason: Nausea Last Admin: 09/10/18 11:16 Dose: 4 mg Ondansetron HCl (Zofran Odt) 4 mg PO Q8H PRN PRN PRN Reason: NAUSEA/VOMITING Oxycodone HCl (Oxyir) 5 - 10 mg PO Q4H PRN PRN PRN Reason: PAIN Pantoprazole Sodium (Protonix) 40 mg PO DAILY [facility] Last Admin: 09/11/18 08:01 Dose: 40 mg Pramipexole Dihydrochloride (Mirapex) 0.5 mg PO BREAKFAST [facility] Last Admin: 09/11/18 08:02 Dose: 0.5 mg Pramipexole Dihydrochloride (Mirapex) 1 mg PO QHS [facility] Last Admin: 09/10/18 22:28 Dose: 1 mg Scopolamine HBr (Transderm-Scop) 1 patch TD Q3D [facility] Last Admin: 09/09/18 10:42 Dose: 1 patch Senna/Docusate Sodium (Senokot-S, Heather-Colace) 2 tablet PO BID PRN PRN PRN Reason: Constipation Last Admin: 09/09/18 21:03 Dose: 2 tablet Sodium Chloride () 5 - 15 ml IV UD PRN PRN Reason: SALINE FLUSH Medical Necessity - Tobacco Use Smoking Status: Never smoker Tobacco Use: Non-smoker Assessment/Plan 1. Status post left shoulder replacement postop day 2 -Pain control per primary -PT/OT -Medically stable for discharge 2. Hypertension -Controlled -Continue with hydrochlorothiazide 3. Hypothyroidism -Stable, TSH 5.01. Follow-up as an outpatient -Continue with Synthroid 4. DM 2 -Diet controlled current A1c is 5.7 -Continue with Accu-Cheks 5. Rheumatoid arthritis -Stable -Continue with Plaquenil DVT: Aspirin per primary Code Visit Inpatient E&M: 98836 Subs Hosp L2
== END 2018-09-11 11:10 | disposition home or self-care (01) | DRG 483 ==
LOC: ACINP 07:09 → MS3 08:15
PROVIDERS: Admitting Provider Specialist; Family Provider Family Medicine; PCP Family Medicine; Referring Provider Specialist; Visit Provider Family Medicine
PROC: 0RRK00Z Replacement of Left Shoulder Joint with Reverse Ball and Socket Synthetic Substitute, Open Approach (ICD-10-PCS; CPT 23472; principal; 2018-09-09 08:30)
DX: M12.812 Other specific arthropathies, not elsewhere classified, left shoulder (principal); M75.102 Unspecified rotator cuff tear or rupture of left shoulder, not specified as traumatic; Z96.611 Presence of right artificial shoulder joint; M06.9 Rheumatoid arthritis, unspecified; E11.9 Type 2 diabetes mellitus without complications; E03.9 Hypothyroidism, unspecified; I10 Essential (primary) hypertension; Z79.899 Other long term (current) drug therapy
CPT/HCPCS: 36415; 73020; 80048; 82962; 83036; 84443; 85025; 87081; 93005; 97165; 97530; C1776; J7050; J7120; J2405

== ENCOUNTER → 2019-04-05 | Outpatient (CLI) | payer MEDICARE, BC, SELFPAY ==
[2018-09-09 12:02] VITALS: BMI 35.4
[2019-04-05 10:24] LABS: Absolute Lymphocyte Count 1.47 X10^3/uL (0.83-4.51); Absolute Neutrophil Count 4.4 X10^3/uL (2.0-7.7); Basophil# 0.04 X10^3/uL; Basophil% 0.6 % (0-1); Eosinophil# 0.29 X10^3/uL; Eosinophils% 4.2 % (0-5); Hematocrit 42.1 % (37-47); Hemoglobin 13.4 g/dL (12.0-15.0); Lymphocyte # 1.47 X10^3/ul (4.0); Lymphocyte % 21.3 % (19-41); Mean Corp Hgb Conc 31.8 g/dL (32-36); Mean Corpuscular Hgb 29.8 pg (27.0-32.0); Mean Corpuscular Volume 93.6 fL (81-99); Mean Platelet Vol. 11.2 fl (6.2-12.0); Monocyte# 0.67 X10^3/uL; Monocyte% 9.7 % (0-10); NRBC Flagged by Analyzer 0 % (0-5); Neutrophil # 4.43 X10^3/uL (2.7-7.7); Neutrophil % 64.1 % (47-70); Platelet Count 202 K/mm3 (150-450); RBC Distribution Width SD 44.6 fl (35.1-43.9); White Blood Count 6.9 K/mm3 (4.4-11.0)
[2019-04-05 11:32] LABS: ALB/GLOB Ratio 1.1 RATIO (0.9-2.4); AST(SGOT) 17 U/L (15-37); Alanine Aminotransfer ALT/SGPT 17 U/L (13-56); Albumin, Serum 3.7 g/dL (3.2-5.0); Alkaline Phosphatase 80 U/L (45-117); Anion Gap 6 (5-15); BUN 23 mg/dL (7-18); BUN/Creat Ratio 21.1 RATIO (10-20); Chloride 105 mmol/L (98-107); Creatinine, Serum 1.09 mg/dL (0.55-1.02); EST Glomerular Filtration Rate 52 mL/min (>60); Est Glom Filt Rate - Afr Amer 63 mL/min (>60); Globulin 3.5 g/dL (2.2-4.2); Glucose 81 mg/dL (74-106); Potassium 3.7 mmol/L (3.5-5.1); Protein, Total 7.2 g/dL (6.4-8.2); Sodium Level 142 mmol/L (136-145)
== END | disposition home or self-care (01) ==
LOC: MTLAB 08:48
PROVIDERS: Family Provider Family Medicine; PCP Family Medicine; Referring Provider Internal Medicine Rheumatology; Visit Provider Internal Medicine Rheumatology
DX: M06.4 Inflammatory polyarthropathy (principal); Z79.899 Other long term (current) drug therapy; M79.7 Fibromyalgia; M19.012 Primary osteoarthritis, left shoulder; M15.9 Polyosteoarthritis, unspecified; M17.0 Bilateral primary osteoarthritis of knee; K76.0 Fatty (change of) liver, not elsewhere classified; F32.89 Other specified depressive episodes; M51.37 Other intervertebral disc degeneration, lumbosacral region; M47.897 Other spondylosis, lumbosacral region; M18.9 Osteoarthritis of first carpometacarpal joint, unspecified
CPT/HCPCS: 36415; 80053; 85025

== ENCOUNTER → 2019-04-28 | Outpatient (CLI) | payer MEDICARE, BC, SELFPAY ==
[2018-09-09 12:02] VITALS: BMI 35.4
[2019-05-01 03:06] LABS: QNTFERON TB Mitogen Value > 10.00 IU/mL (.); QNTFERON TB Nil Value 0.02 IU/mL (.); QNTFERON TB1+ Ag Value 0.02 IU/mL (.); QNTFERON TB2+ Ag Value 0.02 IU/mL (.)
[2019-05-01 09:31] LABS: QNTIFERON TB Positive Criteria Negative (Negative)
== END | disposition home or self-care (01) ==
LOC: MTLAB 15:39
PROVIDERS: Family Provider Family Medicine; PCP Family Medicine; Referring Provider Internal Medicine Rheumatology; Visit Provider Internal Medicine Rheumatology
DX: M06.4 Inflammatory polyarthropathy (principal); Z79.899 Other long term (current) drug therapy; M79.7 Fibromyalgia; M19.019 Primary osteoarthritis, unspecified shoulder; M15.9 Polyosteoarthritis, unspecified; M17.0 Bilateral primary osteoarthritis of knee; M51.37 Other intervertebral disc degeneration, lumbosacral region; M47.897 Other spondylosis, lumbosacral region; M18.9 Osteoarthritis of first carpometacarpal joint, unspecified
CPT/HCPCS: 36415; 86480

== ENCOUNTER → 2019-09-21 13:01 | Outpatient (CLI) | payer MEDICARE, BC, SELFPAY ==
[2018-09-09 12:02] VITALS: BMI 35.4
[2019-09-21 14:14] LABS: AST(SGOT) 19 U/L (15-37); Alanine Aminotransfer ALT/SGPT 24 U/L (13-56); Albumin, Serum 3.7 g/dL (3.2-5.0); Alkaline Phosphatase 69 U/L (45-117); BUN 17 mg/dL (7-18); BUN/Creat Ratio 18.5 RATIO (10-20); Calcium,Total 8.9 mg/dL (8.5-10.1); Creatinine, Serum 0.92 mg/dL (0.55-1.02); EST Glomerular Filtration Rate 63 mL/min (>60); Est Glom Filt Rate - Afr Amer 76 mL/min (>60); Globulin 3.6 g/dL (2.2-4.2); Glucose 82 mg/dL (74-106); Protein, Total 7.3 g/dL (6.4-8.2)
[2019-09-21 14:15] LABS: Anion Gap 5 (5-15); Chloride 105 mmol/L (98-107); Sodium Level 139 mmol/L (136-145)
[2019-09-21 15:28] LABS: Absolute Lymphocyte Count 2.25 X10^3/uL (0.83-4.51); Absolute Neutrophil Count 4.2 X10^3/uL (2.0-7.7); Basophil# 0.05 X10^3/uL; Basophil% 0.7 % (0-1); Eosinophil# 0.25 X10^3/uL; Eosinophils% 3.4 % (0-5); Hematocrit 41.3 % (37-47); Hemoglobin 13.5 g/dL (12.0-15.0); Lymphocyte # 2.25 X10^3/ul (4.0); Lymphocyte % 30.9 % (19-41); Mean Corp Hgb Conc 32.7 g/dL (32-36); Mean Corpuscular Hgb 29.9 pg (27.0-32.0); Mean Corpuscular Volume 91.4 fL (81-99); Mean Platelet Vol. 10.6 fl (6.2-12.0); Monocyte# 0.53 X10^3/uL; Monocyte% 7.3 % (0-10); NRBC Flagged by Analyzer 0 % (0-5); Neutrophil # 4.19 X10^3/uL (2.7-7.7); Neutrophil % 57.4 % (47-70); Platelet Count 231 K/mm3 (150-450); RBC Distribution Width CV 12.9 % (11.6-14.6); RBC Distribution Width SD 43.1 fl (35.1-43.9); Red Blood Count 4.52 M/mm3 (4.2-5.4); White Blood Count 7.3 K/mm3 (4.4-11.0)
== END ==
PROVIDERS: Internal Medicine Rheumatology; PCP Family Medicine; Referring Provider Family Medicine; Visit Provider Family Medicine
DX: E11.9 Type 2 diabetes mellitus without complications (principal); I10 Essential (primary) hypertension; E78.5 Hyperlipidemia, unspecified; M06.4 Inflammatory polyarthropathy; M79.7 Fibromyalgia; M19.019 Primary osteoarthritis, unspecified shoulder; M17.0 Bilateral primary osteoarthritis of knee; K76.0 Fatty (change of) liver, not elsewhere classified; M51.37 Other intervertebral disc degeneration, lumbosacral region; M47.897 Other spondylosis, lumbosacral region; M18.9 Osteoarthritis of first carpometacarpal joint, unspecified; F32.89 Other specified depressive episodes; Z79.899 Other long term (current) drug therapy
CPT/HCPCS: 36415; 80053; 85025

== ENCOUNTER → 2019-12-03 12:13 | Outpatient (CLI) | payer MEDICARE, BC, SELFPAY ==
[2018-09-09 12:02] VITALS: BMI 35.4
[2019-12-03 15:14] LABS: Absolute Lymphocyte Count 1.66 X10^3/uL (0.83-4.51); Absolute Neutrophil Count 6.7 X10^3/uL (2.0-7.7); Basophil# 0.04 X10^3/uL; Basophil% 0.4 % (0-1); Eosinophil# 0.17 X10^3/uL; Eosinophils% 1.9 % (0-5); Hemoglobin 13.6 g/dL (12.0-15.0); Lymphocyte # 1.66 X10^3/ul (4.0); Lymphocyte % 18.2 % (19-41); Mean Corp Hgb Conc 32.4 g/dL (32-36); Mean Corpuscular Hgb 29.8 pg (27.0-32.0); Mean Corpuscular Volume 92.1 fL (81-99); Mean Platelet Vol. 11.1 fl (6.2-12.0); Monocyte# 0.51 X10^3/uL; Monocyte% 5.6 % (0-10); NRBC Flagged by Analyzer 0 % (0-5); Neutrophil # 6.71 X10^3/uL (2.7-7.7); Neutrophil % 73.7 % (47-70); Platelet Count 229 K/mm3 (150-450); RBC Distribution Width CV 12.8 % (11.6-14.6); RBC Distribution Width SD 42.8 fl (35.1-43.9); Red Blood Count 4.56 M/mm3 (4.2-5.4); White Blood Count 9.1 K/mm3 (4.4-11.0)
[2019-12-03 15:30] LABS: ALB/GLOB Ratio 1.1 RATIO (0.9-2.4); AST(SGOT) 23 U/L (15-37); Alanine Aminotransfer ALT/SGPT 22 U/L (13-56); Alkaline Phosphatase 78 U/L (45-117); Anion Gap 8 (5-15); BUN 17 mg/dL (7-18); BUN/Creat Ratio 16.5 RATIO (10-20); Calcium,Total 9.2 mg/dL (8.5-10.1); Chloride 104 mmol/L (98-107); Creatinine, Serum 1.03 mg/dL (0.55-1.02); EST Glomerular Filtration Rate 55 mL/min (>60); Est Glom Filt Rate - Afr Amer 67 mL/min (>60); Globulin 3.6 g/dL (2.2-4.2); Glucose 102 mg/dL (74-106); Potassium 4.4 mmol/L (3.5-5.1); Protein, Total 7.6 g/dL (6.4-8.2); Sodium Level 138 mmol/L (136-145)
== END ==
PROVIDERS: PCP Family Medicine; Referring Provider Internal Medicine Rheumatology; Visit Provider Internal Medicine Rheumatology
DX: M06.4 Inflammatory polyarthropathy (principal); M19.019 Primary osteoarthritis, unspecified shoulder; M17.0 Bilateral primary osteoarthritis of knee; M79.7 Fibromyalgia; K76.0 Fatty (change of) liver, not elsewhere classified; F32.89 Other specified depressive episodes; M51.37 Other intervertebral disc degeneration, lumbosacral region; M47.897 Other spondylosis, lumbosacral region; M18.9 Osteoarthritis of first carpometacarpal joint, unspecified; Z79.899 Other long term (current) drug therapy; Z96.612 Presence of left artificial shoulder joint; Z96.611 Presence of right artificial shoulder joint
CPT/HCPCS: 36415; 80053; 85025

== ENCOUNTER → 2020-06-05 07:47 | Outpatient (CLI) | payer MEDICARE, BC, SELFPAY ==
[2018-09-09 12:02] VITALS: BMI 35.4
[2020-06-05 09:46] LABS: Absolute Lymphocyte Count 2.34 X10^3/uL (0.83-4.51); Absolute Neutrophil Count 3.2 X10^3/uL (2.0-7.7); Basophil# 0.06 X10^3/uL; Eosinophil# 0.24 X10^3/uL; Eosinophils% 3.8 % (0-5); Hematocrit 44.2 % (37-47); Hemoglobin 13.8 g/dL (12.0-15.0); Lymphocyte # 2.34 X10^3/ul (4.0); Lymphocyte % 37.1 % (19-41); Mean Corp Hgb Conc 31.2 g/dL (32-36); Mean Corpuscular Hgb 29.5 pg (27.0-32.0); Mean Corpuscular Volume 94.4 fL (81-99); Mean Platelet Vol. 10.4 fl (6.2-12.0); Monocyte# 0.47 X10^3/uL; Monocyte% 7.5 % (0-10); NRBC Flagged by Analyzer 0 % (0-5); Neutrophil # 3.18 X10^3/uL (2.7-7.7); Neutrophil % 50.4 % (47-70); Platelet Count 268 K/mm3 (150-450); RBC Distribution Width CV 13.1 % (11.6-14.6); RBC Distribution Width SD 45.2 fl (35.1-43.9); Red Blood Count 4.68 M/mm3 (4.2-5.4); White Blood Count 6.3 K/mm3 (4.4-11.0)
[2020-06-05 10:15] LABS: ALB/GLOB Ratio 1.1 RATIO (0.9-2.4); AST(SGOT) 18 U/L (15-37); Alanine Aminotransfer ALT/SGPT 23 U/L (13-56); Albumin, Serum 3.9 g/dL (3.2-5.0); Alkaline Phosphatase 67 U/L (45-117); Anion Gap 3 (5-15); BUN 14 mg/dL (7-18); BUN/Creat Ratio 14.1 RATIO (10-20); Chloride 105 mmol/L (98-107); EST Glomerular Filtration Rate 57 mL/min (>60); Est Glom Filt Rate - Afr Amer 69 mL/min (>60); Globulin 3.7 g/dL (2.2-4.2); Glucose 91 mg/dL (74-106); Potassium 3.6 mmol/L (3.5-5.1); Protein, Total 7.6 g/dL (6.4-8.2); Sodium Level 140 mmol/L (136-145)
== END ==
PROVIDERS: PCP Family Medicine; Referring Provider Internal Medicine Rheumatology; Visit Provider Internal Medicine Rheumatology
DX: M06.4 Inflammatory polyarthropathy (principal); M17.0 Bilateral primary osteoarthritis of knee; M19.019 Primary osteoarthritis, unspecified shoulder; M79.7 Fibromyalgia; Z79.899 Other long term (current) drug therapy; Z96.612 Presence of left artificial shoulder joint; Z96.611 Presence of right artificial shoulder joint
CPT/HCPCS: 36415; 80053; 85025

== ENCOUNTER 2022-02-11 16:00 | Outpatient (RCR) | payer MEDICARE, BC, SELFPAY ==
--- NOTE | 2021-12-26 08:47 | HP.OTEVAL ---
Patient's Visit Information LUMA GUTIÉRREZ is a 81 year old F, referred to Occupational Therapy by Dr. 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 Date of Evaluation: 12/17/21 Occupational Therapist: Ciera Robins, AYDEE/Quynh, CHT - Subjective Pt. is an 81 y/o female who fell in the living room carrying laundry, hit the floor with elbow went to ER then 3 weeks later on 11-27-21 had left hemiarthroplasty elbow distal component of humerus. She has decreased elbow flexion, extension, and strength for ADL and IADL tasks. Son present during evaluation. - ADLs Comments: Pt. demo'd ability to doff jacket at Sup with min difficulty. CHT educated pt. on doffing/donning orthoses as she has not been able to do this herself. - Pain Left Elbow 1 Pain Intensity Range: 2 - ROM Shoulder: R WFL Elbow: L elbow -40* ext, flex 100* Forearm: R WFL Wrist: R WFL - Strength Shoulder: R good Elbow: R good Rn Clinical Trials: R 30# Strength Comments: L to be assessed at a later date. - Edema Elbow: L 31 cm Wrist: L 19 cm - Sensation Ring: L tingling Stereognosis: Normal - Right, Normal - Left Kinesthesia: Normal - Right, Normal - Left Proprioception: Normal - Right, Normal - Left Sensation Comments: pt. declined any difficulty with sensation. R hand normal sensation - Quick DASH-Disab of Arm,Shoulder& Hand Quick DASH Score: 70.4525 - Goals Goal:: Increase UB strength to Fair+ to complete bilateral activities of ADL tasks and IADL's by dc Goal:: Increase L elbow flex/ext to 90*/5* to increase independence with ADL tasks such as dressing by dc Goal:: pt will report pain no greater than 2/10 with use of left UE with ADL and IADL in by d/c Goal:: Pt. will decrease LUE edema by 4cm to increase joint mobility by dc Goal:: pt will demo understanding of precautions of her elbow sx by end of 1st visit. Goal:: pt will report JHON with dressing and bathing in 8 weeks to increase her IND. with ADLs and IADLS. Goal:: pt and family will demo understanding of skin care and precautions to avoid skin breakdown while she needs to wear orthosis-. pt will demo IND. doffing/donning of custom orthosis to allow her to perform her exercise IND. while son is at work. Goal:100% adherence to protocol: Yes Goal:Daily scar massage when approriate: Yes Goal:ROM equal to unaffected hand: Yes Goal:Rn Clinical Trials/Pinch strength at least 75% of unaffected hand: Yes Goal:No pain with affected hand use: Yes Goal:Full use of affected hand in daily activities including: Yes - Rehabilitation General Assessment: Pt. had left hemiarthroplasty elbow distal component of humerus only 3 weeks ago on 11-27-21. She has decreased elbow flexion, extension, and strength for ADL and IADL tasks. Pt. would benefit from skilled OT services to improve independence with ADLs (dressing) and IADLs (laundry). CHT provided manual edema management and education on course of recovery. Pt. and son both verbalized understanding of exercises and ice. Due to the above deficits pt would benefit from skilled OT services 3xweek for 8 weeks to ensure pt recovers her left elbow ROM and strength of left UE to return to her PLOF. This therapy session was directly supervised and doc. reviewed and approved by Ciera Robins OTR/L,CHT. Rehabilitation Potential: Good - Anticipated Interventions Strengthening, Edema Control, Scar Care, Massage, Orthoses, Joint Protection/Energy Conservation, Fine Motor Coord/Bk, ADL Training, Education re assistive Equipment, Education re Diagnosis, Education re Self Massage Techniques, Education re Correct Donning Tech,Care&Wearing Sched Comp Garments, Caregiver Training, Home Program - Visit Plan Frequency: 3x /Week Duration: 6 Weeks General Plan: keep arm/elbow to side of body. keep thumb up position. keep fingers pointed forward. ice 3 times a day for 10 minutes. pt to perform exercise every hour. Follow order of no lateral stress on elbow and not. follow protocol on p. 308 of 5th edition of [facility] hand and shoulder - TEXT: Thank you for the opportunity to evaluate your patient. For Medicare and Medicare HMO plans, please review the plan of care and approve it. It will need to be FAXED BACK to us at [phone] for Medicare purposes. Please let me know if there are questions or concerns regarding this plan of care. Physician Signature: Date:
--- NOTE | 2022-01-01 07:40 | OTREVAL_ITS ---
Dr. Yasmany Levi MD, It has been my pleasure to treat LUMA GUTIÉRREZ over the last 7 visits for left hemiarthroplasty elbow distal component of humerus only.. Please see the progress note below for an update on the occupational therapy plan of care! Subjective: Pt. arrived with son. requires assist with doffing/donning sweater. Pt. going to see orthoped doctor on 01-03-22. Objective/Function: Red spot on elbow is small after adj to her orthosis. L elbow-30*/120* ( pt ROM fluctuates between -20/125). pt continues to struggle with progression of her ROM- pt is home alone during the day and not performing her exercises as frequently as instructed-. pt swelling is much better but she continues to have residual fluid ulnar side of forearm- pts wrist and forearm ROM is WFL-. pt denies pain Plan Frequency: 3x /Week Duration: 4 Weeks Plan: cont elbow flex/ext Goals - Goals Patient Goals: Regain Mobility, Regain Strength, Decrease Swelling/Stiffness, Use Hand/Wrist/Arm Normally Again, Decrease Tingling/Numbness, Increase ROM, Be More Independent in ADLS, Resume Former Household Responsibilities (Cooking,Cleaning,Yard, etc.) Other: That both arms can work together Goal:: Increase UB strength to Fair+ to complete bilateral activities of ADL tasks and IADL's by dc Goal:: Increase L elbow flex/ext to 90*/5* to increase independence with ADL tasks such as dressing by dc Goal:: pt will report pain no greater than 2/10 with use of left UE with ADL and IADL in by d/c Goal:: Pt. will decrease LUE edema by 4cm to increase joint mobility by dc Goal:: pt will demo understanding of precautions of her elbow sx by end of 1st visit. Goal:: pt will report JHON with dressing and bathing in 8 weeks to increase her IND. with ADLs and IADLS. Goal:: pt and family will demo understanding of skin care and precautions to avoid skin breakdown while she needs to wear orthosis-. pt will demo IND. doffing/donning of custom orthosis to allow her to perform her exercise IND. while son is at work. Goal:100% adherence to protocol: Yes Goal:Daily scar massage when approriate: Yes Goal:ROM equal to unaffected hand: Yes Goal:Sap Portal Developer/Pinch strength at least 75% of unaffected hand: Yes Goal:No pain with affected hand use: Yes Goal:Full use of affected hand in daily activities including: Yes Anticipated Interventions Anticipated Interventions: Strengthening, Edema Control, Scar Care, Massage, Orthoses, Joint Protection/Energy Conservation, Fine Motor Coord/Bk, ADL Training, Education re assistive Equipment, Education re Diagnosis, Education re Self Massage Techniques, Education re Correct Donning Tech,Care&Wearing Sched Comp Garments, Caregiver Training, Home Program Please do not hesitate to contact me at [phone] by phone or if you have questions or concerns regarding this new plan of care! Sincerely, Ciera Robins OTR/L, CHT
--- NOTE | 2022-02-11 16:27 | HP.OTREVAL ---
Dr. Yasmany Levi MD, It has been my pleasure to treat LUMA GUTIÉRREZ over the last 17 visits for left hemiarthroplasty elbow distal component of humerus only.. Please see the progress note below for an update on the occupational therapy plan of care! Subjective: pt states she mowed the grass sat. with her push mower- and did her laundry without difficulty- states she was tired but expects that she was happy- pt would like to know if she can drive again. Objective/Function: pt demo with left elbow ROM -35/135 pt demo left forearm supination/pronation pt demo a limited ROM of left elbow but this ROM is functional for her She has returned to performing all her ADls, IADLs and mowing her grass with a self propel mower -. left hotel reservationist strength 23# right is 25#. pt demo a functional ROM and strength for 95% of her ADLs. Plan Plan: pt to return to 02/14 for re-check- possible d/c with [facility] Goals - Goals Patient Goals: Regain Mobility, Regain Strength, Decrease Swelling/Stiffness, Use Hand/Wrist/Arm Normally Again, Decrease Tingling/Numbness, Increase ROM, Be More Independent in ADLS, Resume Former Household Responsibilities (Cooking,Cleaning,Yard, etc.) Other: That both arms can work together Goal:: Increase UB strength to Fair+ to complete bilateral activities of ADL tasks and IADL's by dc. goal met Goal:: Increase L elbow ROM to -5*/90* to increase independence with ADL tasks such as dressing by dc. goal partially met continue for L elbow extension. Goal:: pt will report pain no greater than 2/10 with use of left UE with ADL and IADL in by d/c. goal met Goal:: Pt. will decrease LUE edema by 4cm to increase joint mobility by dc. goal partially met reduced by 2 cm Goal:: Push mow. Don socks. Retrieving items from floor. Hand strength with L hand. Pick weeds Goal:: Pt. to report increased functional activity use with L UE during IADL tasks (push mowing, retrieving items from floor, picking weeds) by dc. Goal:: pt will demo understanding of precautions of her elbow sx by end of 1st visit. goal met Goal:: Pt. to increase L hotel reservationist strength to 25# for increasing independence with yard work by dc. Goal:: pt will report JHON with dressing and bathing in 8 weeks to increase her IND. with ADLs and IADLS. goal partially met, continue for independence with donning/doffing socks. Goal:: pt and family will demo understanding of skin care and precautions to avoid skin breakdown while she needs to wear orthosis- goal met. pt will demo IND. doffing/donning of custom orthosis to allow her to perform her exercise IND. while son is at work. goal met Goal:100% adherence to protocol: Yes Goal:Daily scar massage when approriate: Yes Goal:ROM equal to unaffected hand: Yes Goal:Help Desk Analyst/Pinch strength at least 75% of unaffected hand: Yes Goal:No pain with affected hand use: Yes Goal:Full use of affected hand in daily activities including: Yes Anticipated Interventions Anticipated Interventions: Strengthening, Edema Control, Scar Care, Massage, Orthoses, Joint Protection/Energy Conservation, Fine Motor Coord/Bk, ADL Training, Education re assistive Equipment, Education re Diagnosis, Education re Self Massage Techniques, Education re Correct Donning Tech,Care&Wearing Sched Comp Garments, Caregiver Training, Home Program Please do not hesitate to contact me at [phone] by phone or if you have questions or concerns regarding this new plan of care! Sincerely, Ciera Robins, OTR/L, CHT
--- NOTE | 2022-06-04 13:16 | HP.OTDCSUM ---
It has been my pleasure to treat LUMA GUTIÉRREZ under orders from Dr. Yasmany Levi MD, for the diagnosis of left hemiarthroplasty elbow distal component of humerus only. for a total of 17 visit(s). Please see the following information for a summary of their discharge status. % Improvement: 80 Objective/Function: pt demo with left elbow ROM -35/135 pt demo left forearm supination/pronation pt demo a limited ROM of left elbow but this ROM is functional for her She has returned to performing all her ADls, IADLs and mowing her grass with a self propel mower -. left environmental compliance technician strength 23# right is 25#. pt demo a functional ROM and strength for 95% of her ADLs. Patient Goals: Regain Mobility, Regain Strength, Decrease Swelling/Stiffness, Use Hand/Wrist/Arm Normally Again, Decrease Tingling/Numbness, Increase ROM, Be More Independent in ADLS, Resume Former Household Responsibilities (Cooking,Cleaning,Yard, etc.) Other: That both arms can work together Goal:: Increase UB strength to Fair+ to complete bilateral activities of ADL tasks and IADL's by dc. goal met Goal:: Increase L elbow ROM to -5*/90* to increase independence with ADL tasks such as dressing by dc. goal partially met continue for L elbow extension. Goal:: pt will report pain no greater than 2/10 with use of left UE with ADL and IADL in by d/c. goal met Goal:: Pt. will decrease LUE edema by 4cm to increase joint mobility by dc. goal partially met reduced by 2 cm Goal:: Push mow. Don socks. Retrieving items from floor. Hand strength with L hand. Pick weeds Goal:: Pt. to report increased functional activity use with L UE during IADL tasks (push mowing, retrieving items from floor, picking weeds) by dc. Goal:: pt will demo understanding of precautions of her elbow sx by end of 1st visit. goal met Goal:: Pt. to increase L environmental compliance technician strength to 25# for increasing independence with yard work by dc. Goal:: pt will report JHON with dressing and bathing in 8 weeks to increase her IND. with ADLs and IADLS. goal partially met, continue for independence with donning/doffing socks. Goal:: pt and family will demo understanding of skin care and precautions to avoid skin breakdown while she needs to wear orthosis- goal met. pt will demo IND. doffing/donning of custom orthosis to allow her to perform her exercise IND. while son is at work. goal met Goal:100% adherence to protocol: Yes Goal:Daily scar massage when approriate: Yes Goal:ROM equal to unaffected hand: Yes Goal:Safety Representative/Pinch strength at least 75% of unaffected hand: Yes Goal:No pain with affected hand use: Yes Goal:Full use of affected hand in daily activities including: Yes Plan: pt to return to 02/14 for re-check- possible d/c with [facility] If there are questions or concerns regarding this patient's occupational therapy, please fell free to call me at [phone]. Thank you for the referral of this patient. Sincerely, Ciera Robins, OTR/L, CHT
== END 2022-02-11 19:00 | disposition home or self-care (01) ==
LOC: OT 16:00
PROVIDERS: PCP Family Medicine; Referring Provider Orthopaedic Surgery Hand Surgery; Visit Provider Orthopaedic Surgery Hand Surgery
DX: S42.452D Displaced fracture of lateral condyle of left humerus, subsequent encounter for fracture with routine healing (principal)
CPT/HCPCS: 97110; 97140; 97165; 97530

== ENCOUNTER 2022-05-13 13:00 | Outpatient (RCR) | payer MEDICARE, BC, SELFPAY ==
--- NOTE | 2022-05-01 17:32 | HP.OTEVAL_ITS ---
Patient's Visit Information LUMA GUTIÉRREZ is a 81 year old F, referred to Occupational Therapy by Out of Town Doctor, with a diagnosis of primary osteoarthritis involving multiple joints B hands. Date of Evaluation: 05/01/22 Occupational Therapist: Ciera Robins, OTR/Quynh, CHT - Subjective This 81 year old female was seen for OT eval with dx of primary osteoarthritis involving multiple joints on bilateral hands- pt states she is having trouble with dropping small items, water bottles or a glass. pt states she has trouble with pinching clothes pins together to hand her laundry as well as stiffness- pt would like to know what she can do to increase her strength and decrease her stiffness so she can perform her daily tasks without discomfort. - ADLs Comments: pt states she still tries to clean her home and her hands hurt while she is doing the tasks-. pt states hanging up the cloths on the cloths line is difficulty- - Pain B hands 5 Pain Intensity Range: 3, 4 - ROM ROM Comments: pt states bilateral fingers feel stiff. pt demo bilateral hand deformities limiting full tight composite fist - Strength Rehabilitation Attendant: right 20# left 10# Lateral Pinch: right 6# left 2# Strength Comments: pt demo with weakness of bilateral hands - Sensation Sensation Comments: denies - Quick DASH-Disab of Arm,Shoulder& Hand Quick DASH Score: 30.0000 - Goals Goal:: pt will demo a increase in bilateral hand strength by 10# to increase pts ind. with ADLs and IADls by fran Goal:: Pt will demo understanding of joint protection and ergonomics when performing BADLs and IADLs by d/c. Pt will demo understanding of adaptive Equipment use to decrease stress on joints to allow pt to perform BADSL and IADLS at JHON level. Goal:: pt will demo understanding of utilizing low heat to decrease finger stiffness by end of 2nd session. - Rehabilitation General Assessment: pt demo limited ROM bilateral joint deformities and weakness that has increased pts difficulty with performing her ADLs and IADLs. Pt would benefit from skilled OT services 1-2x week for 3-4 weeks to ed. pt on joint protection, ad. eq. along with strengthening to her tolerance to become ind. with ADLs and her IADLs. pt demo understanding and agree to POC. Rehabilitation Potential: Good - Anticipated Interventions A/AAROM/PROM, Strengthening, Triggerpoint Release, Modalities, Orthoses, Joint Protection/Energy Conservation, ADL Training, Education re assistive Equipment, Education re Diagnosis - Visit Plan Frequency: 1-2x /Week Duration: 4 Weeks TEXT: Thank you for the opportunity to evaluate your patient. For Medicare and Medicare HMO plans, please review the plan of care and approve it. It will need to be FAXED BACK to us at [phone] for Medicare purposes. Please let me know if there are questions or concerns regarding this plan of care. Physician Signature: Date:
--- NOTE | 2022-08-01 08:41 | HP.OT.NRP ---
LUMA GUTIÉRREZ was seen in my office for initial evaluation on 05/01/22. The following Plan of Care was established for this patient: Initial Frequency: 1-2x /Week Initial Duration: 4 Weeks Anticipated Interventions: A/AAROM/PROM, Strengthening, Triggerpoint Release, Modalities, Orthoses, Joint Protection/Energy Conservation, ADL Training, Education re assistive Equipment, Education re Diagnosis This patient was last seen in our office 05/13/22. Pertinent comments regarding their Occupational therapy will appear below: pt was seen for 3 OT sessions for OA. at this time pt has not scheduled further apts and d/c due to time lapse in services. At this point I will be discontinuing this patient from occupational therapy. I would be happy to see this patient again in the future if found appropriate by the physician. Thank you! Ciera Robins, OTR/L, CHT
== END 2022-05-13 19:00 | disposition home or self-care (01) ==
LOC: OT 13:00
DX: M15.9 Polyosteoarthritis, unspecified (principal)
CPT/HCPCS: 97110; 97166; 97530

== ENCOUNTER 2022-12-31 13:00 | Outpatient (RCR) | payer MEDICARE, BC, SELFPAY ==
--- NOTE | 2022-10-21 13:47 | HP.PTEVAL ---
Patient's Visit Information LUMA GUTIÉRREZ is a 82 year old F referred to Physical Therapy by Out of Town Doctor with a diagnosis of OA multiple joints, FM. Date of Evaluation: 10/21/22 Physical Therapist: Fabrice Bedoya, PHIT, OCS, CSCS - Visit Plan Frequency: 2x /Week Duration: 4-6 Weeks Plan: 2x/week for 4-6 weeks starting aquatic therapy for LE and core strength and mobility. Work on hip and knee rOM and trunk ROM and general ex. Educate on home ex progression also as able and exit strategy is home or community pool - Subjective I have arthritis. Arthritis specialist specialist sent her to therapy. Some days worse than others and has been for years. Getting weaker and sitting around more due to pain. Pain is all over. Has FM also,. Worst of pain is LB and neck and fingers. Up to 5/10 50% of the days, good days are 2/10. Always ahs some pain. Not employed. sleeping is good, no problem. Lives with son who works during day. Lives in one story of the house and two steps to enter with railing. Takes her time and can do them. Spends day helping with laundry and getting meals started. Has cat that she pays attention to and watches Tv. Listens to some music. No regular ex. Basic ADLs are getting done, she dresses herself, bathroom self, bed trasnfers with rail I. Son does grocery shopping. Would llike to go to [email or web address] activities but hurts too much. It is an effort to get ready and she feels worn out. No falls lately, has cane and walker, uses walker only if he feels unsteady. - Pain overall body/back/neck Pain Intensity (Out of 10): 3 Pain Intensity Range: 5 - Objective FTSTS: 11 seconds. Walks slightly hobbling and stiff back to PT I. Transfers chair I without UE. bed I. Steps with two rails reciprocally with weakness but I. LE AROM WFL except hip extension to 0. Knees 0-110, ankles to 0 DF, otherwise WFL. Tightness apparent in psoas and quad and HS and gastroc. strenrgth hips abd and ext 3, flexion 3+, knee flex/ext 4-, ankles 4 all directions. Hip adduct with trasnfer from chair and with hip flexor testing move into IR. reflexes 1/3 patella and achilles. Sensation LE WNL to gross light touch. coordination to reciprocal toe tap is good as is heel to soria. - Balance/Special Test Scores Functional Gait Assessment Score: 21 % Disability: 30.0000 Lower Extremity Functional Score: 24 TUG Test Time Seconds: 12 30 Second Chair Rise Test Seconds: 13 - Goals Goal 1:: I appropriate HEP to minimze pain and maximize mobility Goal Time Frame: 4-6 Weeks Goal 2:: Pt feel 50% better with mobility adn pain 3/10 at worst Goal Time Frame: 4-6 Weeks Goal 3:: LEFS score 44 Goal Time Frame: 4-6 Weeks Goal 4:: TUG less than 10 seconds Goal Time Frame: 4-6 Weeks - Rehabilitation Potential Physical Therapy Diagnosis: sedentary lifestyle combined with OA and FM make moving challenging, needs movement to feel better. Rehabilitation Potential: Fair - Anticipated Interventions Patient/Client Instruction: Educate patient on: Condition, Plan of Care For the Purpose of:: To decrease pain, To increase ROM, To improve muscle performance and motor function, To increase tolerance to activity/condition/position, To improve ability of physical actions for home/community/work/leisure Therapeutic Exercise to Include: Strength training, Endurance training, Postural training, Flexibilty training, Gait and locomotor training, In an aquatic setting For the Purpose of:: To decrease pain, To increase ROM, To improve nutrient delivery to tissue, To improve muscle performance and motor function, To increase tolerance to activity/condition/position Thank you for the opportunity to evaluate your patient. For Medicare and Medicare HMO plans, please review the plan of care and approve it. It will need to be FAXED BACK to us at [phone] for Medicare purposes. For Medicare only, by signing this I certify the plan of care. Please let me know if there are questions or concerns regarding this plan of care. Physician Signature: Date:
--- NOTE | 2022-11-04 12:33 | HP.OTEVAL ---
Patient's Visit Information LUMA GUTIÉRREZ is a 82 year old F, referred to Occupational Therapy by MARIEL AGUILA, with a diagnosis of primary osteoarthritis involving multiple joints, physical deconditioning. Date of Evaluation: 10/21/22 Occupational Therapist: Carleen Wells - Subjective Seen for OT evaluation after PT. Referral for strengthening. Previously seen by OT to address osteoarthritis in B hands to improve function and strength. Arrived and reports concerns primarily are numbness in fingers and strength in hands. History of a broken elbow on the L but no shoulder injuries. She reports some pain through the left side of neck as well. Having some difficulty with ADL tasks and opening containers especially jars. Lives with son, who works during the day. Lives in a single level home with a basement, [address]. Uses a walk-in shower, has chair but doesn't always use it. Still drives. She reports she will walk down to the basement to get to the garage but she reports she is very careful on the steps with railings on both sides. - ADLs Comments: some trouble with fasteners Eating: Bring food to mouth, Use silverware Comments: difficulty cutting up food Kitchen: Open jars, Lift saucepan, Take dish out of oven Comments: participates in dishes, laundry, vacuum Comments: some difficulty opening food packages, getting socks and shoes on, difficulty opening jars. Adaptive equipment she has includes sock aide and a lever pop blueprint clerk - Pain hands Pain Intensity Range: 0 - Objective bilateral hands have nodules around joints in the fingers - Strength Tree Killer: R 16; L 25 Lateral Pinch: R 5; L 2 Tripod Pinch: R 3; L 3 Tip-to-Tip Pinch: R 2; L2 Strength Comments: R hand dominant - Nine Hole Peg Right: 36.1 Left: 42.6 Comments: R hand dominant - Quick DASH-Disab of Arm,Shoulder& Hand Quick DASH Score: 45.4525 - Goals Goal:: Patient will improve medical detail representative strength by 2# bilaterally by d/c. Goal:: Patient will report decrease in pain to less than 2/10 on a consistent basis at home and at therapy by d/c. Goal:: Patient will be independent with 3-5 joint protective or adaptive ADL strategies to improve independence and joint safety when using hands by d/c. - Rehabilitation Rehabilitation Potential: Good - Anticipated Interventions Strengthening, Massage, Triggerpoint Release, Joint Protection/Energy Conservation, ADL Training, Education re assistive Equipment - Visit Plan Frequency: 2x /Week Duration: 4 Weeks General Plan: 2x/week for 4 weeks, coordinate with aquatic PT appts if able. Focus on joint protection, adapting ADL's, light hand strengthening, and decreasing pain and discomfort in hands TEXT: Thank you for the opportunity to evaluate your patient. For Medicare and Medicare HMO plans, please review the plan of care and approve it. It will need to be FAXED BACK to us at [phone] for Medicare purposes. Please let me know if there are questions or concerns regarding this plan of care. Physician Signature: Date:
--- NOTE | 2022-12-09 13:56 | HP.OTDCSUM_ITS ---
It has been my pleasure to treat LUMA GUTIÉRREZ under orders from MARIEL AGUILA, for the diagnosis of primary osteoarthritis involving multiple joints, physical deconditioning for a total of 6 visit(s). Please see the following information for a summary of their discharge status. % Improvement: 60 Objective/Function: Junior Php Developer: R 15, L 30. Lateral pinch: R 4, L4. Tripod pinch: R 4, L 6. 2 point pinch: R 2, L 3 Patient Goals: Regain Strength, Decrease Pain, Decrease Swelling/Stiffness, Decrease Tingling/Numbness, Be More Independent in ADLS Goal:: Patient will improve turret punch press operator strength by 2# bilaterally by d/c. Goal:: Patient will report decrease in pain to less than 2/10 on a consistent basis at home and at therapy by d/c. Goal:: Patient will be independent with 3-5 joint protective or adaptive ADL strategies to improve independence and joint safety when using hands by d/c. Plan: discharge from OT at this time. If there are questions or concerns regarding this patient's occupational therapy, please fell free to call me at [phone]. Thank you for the referral of this patient. Sincerely, Carleen Wells
--- NOTE | 2022-12-31 13:57 | HP.PTDCSUM ---
It has been my pleasure to treat LUMA GUTIÉRREZ referred by MARIEL AGUILA, with the diagnosis of OA multiple joints, FM for a total of 10 visit(s). Discharge Date: 12/31/22 Please see the following information for a summary of their discharge status. Subjective: I can do them at home now and they are helping her strength. Walking better. Doing home exercises every day.Pain not an issue.No f/u scheduled with doctor. overall body/back/neck Pain Intensity (Out of 10): 1 % Improvement: 50 Objective/Function: FGA is stagnant as it TUG, pt feels better and is exercising I at home. Goal 1:: I appropriate HEP to minimze pain and maximize mobility Goal Progress: Goal Met Goal 2:: Pt feel 50% better with mobility adn pain 3/10 at worst Goal Progress: Goal Met Goal 3:: LEFS score 44 Goal Progress: Progressing Goal 4:: TUG less than 10 seconds Goal Progress: Not Progressing Plan: d/c to HEP, still recommended using cane and continuing HEP 5x/week. If there are questions or concerns regarding this patient's physical therapy, please feel free to call me at [phone]. Thank you for the referral of this patient. Sincerely, Fabrice Bedoya, DPT, OCS, CSCS Balance/Gait/Functional tests - Balance/Special Test Scores Functional Gait Assessment Score: 22 % Disability: 26.6700 Lower Extremity Functional Score: 40 TUG Test Time Seconds: 12 Tug Test: <20 sec.=mostly independent 30 Second Chair Rise Test Seconds: 13
== END 2022-12-31 19:00 | disposition home or self-care (01) ==
LOC: PT 13:00
DX: M15.9 Polyosteoarthritis, unspecified (principal); M79.7 Fibromyalgia; R53.81 Other malaise
CPT/HCPCS: 97110; 97113; 97140; 97162; 97164; 97165; 97530

== ENCOUNTER 2024-10-11 21:42 | Inpatient (IN) | payer MEDICARE, BC, SELFPAY ==
[2024-10-11] VITALS (7 sets, daily range): BP systolic 92–105; BP diastolic 42–57; PULSE 64–66; RESP 18; TEMP 36.8; O2SAT 96–98; BMI 30.4
--- NOTE | 2024-10-11 22:05 | RAD_ITS ---
PROCEDURE: CHEST PA AND LATERAL REASON FOR EXAM: Hypotension. Pain. TECHNIQUE: Frontal and lateral views of the chest. COMPARISON: Chest x-ray from 09/26/2022. FINDINGS: Mild cardiomegaly is present. Pulmonary vasculature is within normal limits. There is heavy mitral annulus calcification. No consolidation, pleural effusion, or pneumothorax is present. Large hiatal hernia is identified. 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 RAD/Chest PA and Lateral IMPRESSION: 1. No acute cardiopulmonary process. 2. Mild cardiomegaly. 3. Large hiatal hernia. Reading Location: [facility]
--- NOTE | 2024-10-11 22:05 | CT_ITS ---
PROCEDURE: CTA ABD/PELVIS W/WO CONTRAST REASON FOR EXAM: Abdominal pain with diarrhea. Bloody stools. TECHNIQUE: CTA imaging of the abdomen and pelvis with intravenous contrast. 3D reconstructions. COMPARISON: None. FINDINGS: Abdominal aorta demonstrates a normal caliber with atherosclerotic calcifications. There is no evidence of abdominal aortic aneurysm or dissection. Celiac artery, superior mesenteric artery, bilateral renal arteries, and inferior mesenteric artery are patent. 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 There is atherosclerotic calcification involving the origin of the right renal artery with moderate stenosis. Bilateral common iliac, internal iliac, and external iliac arteries are patent with atherosclerotic calcifications. There is no evidence of active hemorrhage. Lung bases are clear. Large hiatal hernias identified. Liver and spleen are limited due to the phase of contrast. There is cholelithiasis. There is atrophy of the pancreas. Biliary system is unremarkable. Adrenal glands are unremarkable. Bilateral kidneys enhance homogeneously without hydronephrosis. Urinary bladder is smoothly contoured. Pessary is noted. There is circumferential wall thickening of the rectum, sigmoid colon, descending colon, and distal transverse colon related to a colitis with pericolonic inflammatory stranding. Colonic diverticulosis is identified without diverticulitis. There is moderate retained stool in the right colon. Small bowel demonstrates a normal caliber. No free air or free fluid is identified. There is trace fluid in the presacral region. No free air is identified. Right hip arthroplasty results in metallic artifact. Evaluation of the osseous structures demonstrates advanced degenerative changes of the lumbar spine. There is dextroscoliosis of the lumbar spine. There are degenerative changes of the left hip joint, pubic symphysis, bilateral sacroiliac joints. CT/CTA Abd/Pelvis W/WO Contrast IMPRESSION: 1. Circumferential wall thickening of the rectum, sigmoid colon, descending col on, and distal transverse colon with pericolonic stranding likely related to an acute colitis on an infectious, inflammatory, or ischemic basis. 2. No evidence of abdominal aortic aneurysm or dissection. No active hemorrhag e is identified. 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 There is atherosclerotic ca lcification of the origin of the right renal artery with moderate stenosis. 3. Colonic diverticulosis without diverticulitis. 4. Large hiatal hernia. 5. Additional findings as above. One or more dose reduction techniques were used (e.g., Automated exposure contr ol, adjustment of the mA and/or kV according to patient size, use of iterative reconstruction technique). Reading Location: [facility]
--- NOTE | 2024-10-11 22:06 | EKG12_ITS ---
Test Reason : DYSRHYTHMIA Blood Pressure : */* mmHG Vent. Rate : 66 BPM Atrial Rate : 66 BPM P-R Int : 190 ms QRS Dur : 140 ms QT Int : 448 ms P-R-T Axes : 64 -10 -5 degrees QTcB Int : 469 ms Normal sinus rhythm Right bundle branch block Abnormal ECG Confirmed by Jair Villatoro ([id number]), rewrite editor PHOENIX REYES ([id number]) on 10/12/2024 10:00:44 AM Referred By: Confirmed By: Jair Villatoro
[2024-10-11] MEDS: 0.9% Normal Saline (1000mL) 1,000 ML 999 ML IV (22:09)
--- NOTE | 2024-10-11 22:19 | EX.ED.DYSGE1 ---
HPI History of Present Illness Chief Complaint: Abd Pain Narrative Narrative: Patient is a 84-year-old female past medical history hypertension, diabetes, hypothyroidism, depression who presented to the emergency department the chief complaint of altered mental status and unresponsive. According to the staff the patient when EMS arrived was hypotensive with a systolic in the 70s. They started IV fluids on her. According to the nurse at bedside when they arrived after some fluids were given her blood pressure improved and she became much more alert and oriented. According the patient she states that for the past few days she has noted that she has had diarrhea and blood in her stool. She denies any blood thinning medications. Patient denies any sick contacts. Patient states that her abdomen is sore and had 1 episode of vomiting yesterday but has not vomited since. [facility] Medical History HTN (hypertension) Depression Diabetes mellitus type 2, diet-controlled Hypothyroidism Rheumatoid arthritis Home Medications ?Medication ?Instructions ?Recorded ?Last Taken ?Type gabapentin 400 mg capsule 800 mg PO QHS pain 10/05/15 Unknown History levothyroxine 125 mcg tablet 125 mcg PO DAILY thyroid 10/05/15 09/09/18 06:30 History aspirin 81 mg tablet,delayed 81 mg PO DAILY 10/16/22 Unknown History release (Adult Low Dose Aspirin) cholecalciferol (vitamin D3) 25 25 mcg PO DAILY 10/16/22 Unknown History mcg (1,000 unit) capsule albuterol sulfate 90 mcg/actuation 2 inh inhalation Q4H PRN shortness 10/11/24 Unknown History aerosol inhaler of breath or wheezing ascorbic acid (vitamin C) 1,000 mg 1 g PO DAILY 10/11/24 Unknown History capsule bupropion HCl 150 mg 24 hr tablet, 150 mg PO DAILY 10/11/24 Unknown History extended release ferrous sulfate 325 mg (65 mg 325 mg PO QODAY 10/11/24 Unknown History iron) tablet (FeroSul) fluticasone fur. 100 mcg-umeclid 1 inh inhalation DAILY 10/11/24 Unknown History 62.5 mcg-vilant 25 mcg inhalat.powder (Trelegy Ellipta) isosorbide mononitrate 60 mg 60 mg PO DAILY 10/11/24 Unknown History tablet,extended release 24 hr losartan 100 mg tablet 100 mg PO DAILY 10/11/24 Unknown History meclizine 12.5 mg tablet 12.5 mg PO DAILY PRN dizziness 10/11/24 Unknown History omega-3 fatty acids 1,000 mg 668 mg PO DAILY 10/11/24 Unknown History capsule ondansetron 4 mg disintegrating 4 mg PO Q6H PRN nausea and vomiting 10/11/24 Unknown History tablet potassium chloride 10 mEq 10 meq PO BID 10/11/24 Unknown History tablet,extended release(part/cryst) ropinirole 1 mg tablet 2 mg PO DAILY 10/11/24 Unknown History rosuvastatin 20 mg tablet 20 mg PO QHS 10/11/24 Unknown History torsemide 20 mg tablet 20 mg PO DAILY 10/11/24 Unknown History Allergy/AdvReac Type Severity Reaction Status Date / Time morphine Allergy Intermediate Rash Verified 10/11/24 21:48 lovastatin Allergy Itching Verified 10/11/24 21:48 paroxetine HCl (From Paxil) Allergy Hives, Verified 10/11/24 21:48 Itching Sulfa (Sulfonamide Allergy Itching Verified 10/11/24 21:48 Antibiotics) Surgical History History of right shoulder replacement History of left knee replacement History of carpal tunnel release H/O tubal ligation Social History Smoking Status: Never smoker ROS ROS ED ROS Narrative Constitutional: Denies any fevers, chills, headaches, lightness, dizziness Eyes: Denies change in vision double vision blurry vision Cardiovascular: Denies chest pain or palpitations Respiratory: Denies coughing wheezing shortness of breath Abdomen: Complains of abdominal discomfort with blood in her diarrhea as noted above : Denies any urinary symptoms Neurological: Denies numbness, weakness, tingling Musculoskeletal: Denies back pain Skin: Denies rashes or lesions EXAM Physical Exam Narrative Exam Narrative: General: Patient was lying in bed rest comfortably did not appear to be acute distress Head: Atraumatic, normocephalic Eyes: PERRL bilaterally, EOMI bilaterally, no conjunctival injection noted Neck: Soft, supple, trachea midline Cardiovascular: Regular rate and rhythm Respiratory: Clear to auscultation bilaterally Abdomen: Soft, nondistended, tenderness to palpation in the left lower quadrant but also noted diffusely no rebound or guarding on exam Extremities: +4/5 strength noted in the bilateral upper and lower extremities, radial pulses +2/4 in the bilateral extremities, no pedal edema on exam Neurological: Patient follow commands knew that she was at [facility] year is 2024. NIH of 0 GCS 15 Skin: Warm, dry, intact Const Vital Signs: 10/11/24 21:49 10/11/24 21:53 10/11/24 22:00 Temperature 98.2 F 98.2 F Temperature Source Oral Oral Pulse Rate 65 64 Respiratory Rate 18 18 Blood Pressure 93/48 L 93/48 L 92/42 L Blood Pressure Mean 63 63 58 Pulse Ox 98 96 Oxygen Delivery Method Room Air Room Air 10/11/24 22:07 10/11/24 22:15 10/11/24 22:30 Temperature Temperature Source Pulse Rate Respiratory Rate Blood Pressure 95/50 L 95/50 L Blood Pressure Mean 65 65 Pulse Ox 98 Oxygen Delivery Method Room Air 10/11/24 23:00 10/12/24 00:00 10/12/24 01:00 Temperature 98.2 F Temperature Source Oral Pulse Rate 66 66 64 Respiratory Rate 18 18 18 Blood Pressure 105/57 L 107/54 L 99/54 L Blood Pressure Mean 73 71 69 Pulse Ox 96 96 96 Oxygen Delivery Method Room Air Room Air Room Air 10/12/24 01:56 10/12/24 02:00 Temperature 98.2 F Temperature Source Pulse Rate 63 64 Respiratory Rate 18 18 Blood Pressure 92/51 L 92/49 L Blood Pressure Mean 64 63 Pulse Ox 93 94 Oxygen Delivery Method Room Air MDM MDM MDM Narrative Medical decision making narrative: Patient is a 84-year-old female who presented to the emergency department with a chief complaint of bloody diarrhea for the last few days as well as a unresponsive episode. On the differential diagnose includes but not limited to lower GI bleed, anemia, electrolyte abnormality, dehydration. Once workup is obtained reviewed she will be reevaluated. Patient be given a liter of IV fluid she does have a history of congestive heart failure based on paperwork at bedside that the son provided. According to him he was going to bring her to the hospital this evening and when he went to get her in the car she was unresponsive and he had a difficult time arousing her therefore he called EMS to have her brought here further evaluation management. Patient's CBC was reviewed and showed a white blood cell count of 16,000, hemoglobin 11.9, plate count was noted be 195. Patient's INR normal 1.2, PT 15.3. Patient sodium was 139, potassium normal 4.9, creatinine was elevated 1.69 indicating acute kidney injury, patient with a lactic acidosis of 2.3. Patient AST and ALT were 25 and 26 respectively proBNP mildly elevated to 64. Patient is EKG reviewed independently interpreted by myself showed sinus rhythm with a rate of 66 bpm with evidence of right bundle branch block. Patient's urinalysis showed no evidence of infection. Patient's chest x-ray reviewed by myself and by radiology showed no acute cardiopulmonary processes mild cardiomegaly large hiatal hernia. Patient CTA of the abdomen and pelvis was reviewed showed circumferential wall thickening of the rectum, sigmoid colon, descending colon, and distal transverse colon with pericolonic stranding likely related to acute colitis on infectious inflammatory ischemic basis. No evidence of abdominal aortic aneurysm or dissection no active hemorrhage identified. 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 Colonic diverticulosis without diverticulitis. Large hiatal hernia. Patient tested positive for blood in her stool on her fecal occult test. I called and discussed case with on-call cobol programmer Dr. Ridley who states that she can be admitted to the hospitalist service. He states that he does not believe that she needs any antibiotics at this point time. Will call and discussed case with hospitalist for admission as she does have a history of CHF and need to be careful with her IV fluid replacement and she also had a bloody bowel movement here in the emergency department. With her active bleeding and her softer blood pressures will need to keep a close eye on her hemoglobin. At 2:46 AM: Spoke with hospitalist Dr. Nunes who accept patient for admission. Patient notified as well as son at bedside who is agreeable with the plan all question concerns were answered. Lab Data Labs: Laboratory Results - last 24 hr 10/11/24 10/11/24 22:23 22:35 WBC 16.5 H RBC 3.91 L Hgb 11.9 L Hct 36.3 L MCV 92.8 MCH 30.4 MCHC 32.8 RDW Std Deviation 49.8 H RDW Coeff of Micky 14.6 Plt Count 195 MPV 10.5 Immature Gran % (Auto) 0.700 Neut % (Auto) 86.2 H Lymph % (Auto) 6.8 L Vernon % (Auto) 5.5 Eos % (Auto) 0.6 Baso % (Auto) 0.2 Absolute Neuts (auto) 14.2 H Absolute Lymphs (auto) 1.12 Nucleated RBC % 0 PT 15.3 H INR 1.2 APTT 39.3 H Sodium 139 Potassium 4.1 Chloride 106 Carbon Dioxide 27.0 Anion Gap 7 BUN 36 H Creatinine 1.69 H Estim Creat Clear Calc 26.84 Est GFR (MDRD) Af Amer 37 L Est GFR (MDRD) Non-Af 31 L BUN/Creatinine Ratio 21.3 H Glucose 148 H Lactic Acid 2.3 H* Calcium 9.1 Total Bilirubin 1.10 H AST 25 ALT 26 Alkaline Phosphatase 47 Troponin I High Sens 16 B-Natriuretic Peptide 264.2 H Total Protein 6.3 L Albumin 3.1 L Globulin 3.2 Albumin/Globulin Ratio 1.0 Urine Color Yellow Urine Clarity Clear Urine pH 5.0 Ur Specific Hospers 1.015 Urine Protein 30 H Urine Glucose (UA) Normal Urine Ketones 5 H Urine Occult Blood 10 H Urine Nitrite Negative Urine Bilirubin 1 H Urine Urobilinogen 1 H Ur Leukocyte Esterase 25 H Urine RBC 0 SEEN Urine WBC 0 SEEN Ur Squamous Epith Cells 0 SEEN Urine Bacteria 0 SEEN Hyaline Casts 0-5 SEEN Fine Granular Casts 0 SEEN Urine Mucus 0 SEEN Radiography Diagnostic Testing: Clinical Impression(s) from Imaging Studies Abdomen/Pelvis CTA 10/11/24 22:05 IMPRESSION: 1. Circumferential wall thickening of the rectum, sigmoid colon, descending colon, and distal transverse colon with pericolonic stranding likely related to an acute colitis on an infectious, inflammatory, or ischemic basis. 2. No evidence of abdominal aortic aneurysm or dissection. No active hemorrhage is identified. 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 There is atherosclerotic calcification of the origin of the right renal artery with moderate stenosis. 3. Colonic diverticulosis without diverticulitis. 4. Large hiatal hernia. 5. Additional findings as above. One or more dose reduction techniques were used (e.g., Automated exposure control, adjustment of the mA and/or kV according to patient size, use of iterative reconstruction technique). Reading [facility] Chest X-Ray 10/11/24 22:05 IMPRESSION: 1. No acute cardiopulmonary process. 2. Mild cardiomegaly. 3. Large hiatal hernia. Reading Location: [facility] Discharge Plan Triage Chief Complaint: Abd Pain ED Provider: En Reese Dx/Rx/DC Orders Clinical Impression: Colitis, Bright red blood per rectum Prescriptions: No Action aspirin [Adult Low Dose Aspirin] 81 mg tablet,delayed release (DR/EC) 81 mg PO DAILY cholecalciferol (vitamin D3) 25 mcg (1,000 unit) capsule 25 mcg PO DAILY gabapentin 400 MG capsule 800 mg PO QHS levothyroxine 125 MCG tablet 125 mcg PO DAILY isosorbide mononitrate 60 mg tablet extended release 24 hr 60 mg PO DAILY rosuvastatin 20 mg tablet 20 mg PO QHS torsemide 20 mg tablet 20 mg PO DAILY albuterol sulfate 90 mcg/actuation HFA aerosol inhaler 2 inh inhalation Q4H PRN (Reason: shortness of breath or wheezing) ascorbic acid (vitamin C) 1,000 mg capsule 1 g PO DAILY ferrous sulfate [FeroSul] 325 mg (65 mg iron) tablet 325 mg PO QODAY Trelegy Ellipta 100-62.5-25 mcg blister with device 1 inh inhalation DAILY losartan 100 mg tablet 100 mg PO DAILY meclizine 12.5 mg tablet 12.5 mg PO DAILY PRN (Reason: dizziness) ondansetron 4 mg tablet,disintegrating 4 mg PO Q6H PRN (Reason: nausea and vomiting) potassium chloride 10 mEq tablet,ER particles/crystals 10 meq PO BID ropinirole 1 mg tablet 2 mg PO DAILY bupropion HCl 150 mg tablet extended release 24 hr 150 mg PO DAILY omega-3 fatty acids 1,000 mg capsule 668 mg PO DAILY Primary Care Provider: Emely Martinez Referrals: Emely Martinez PA [Primary Care Provider] - Print Language: Colombian Disposition Disposition: Acute Care Hospital [facility]
[2024-10-11 22:37] LABS: Absolute Lymphocyte Count 1.12 X10^3/uL (0.83-4.51); Absolute Neutrophil Count 14.2 X10^3/uL (2.0-7.7); Basophil# 0.04 X10^3/uL; Basophil% 0.2 % (0-1); Eosinophils% 0.6 % (0-5); Hematocrit 36.3 % (37-47); Hemoglobin 11.9 g/dL (12.0-15.0); Lymphocyte # 1.12 X10^3/ul (0.83-4.51); Lymphocyte % 6.8 % (19-41); Mean Corp Hgb Conc 32.8 g/dL (32-36); Mean Corpuscular Hgb 30.4 pg (27.0-32.0); Mean Corpuscular Volume 92.8 fL (81-99); Mean Platelet Vol. 10.5 fl (6.2-12.0); Monocyte% 5.5 % (0-10); NRBC Flagged by Analyzer 0 % (0-5); Neutrophil # 14.19 X10^3/uL (2.7-7.7); Neutrophil % 86.2 % (47-70); Platelet Count 195 K/mm3 (150-450); RBC Distribution Width CV 14.6 % (11.6-14.6); RBC Distribution Width SD 49.8 fl (35.1-43.9); Red Blood Count 3.91 M/mm3 (4.2-5.4); White Blood Count 16.5 K/mm3 (4.4-11.0)
[2024-10-11 22:41] LABS: Bacteria 0 SEEN /hpf (None Seen); Mucous, Urine 0 SEEN /hpf (<or=2+); Squamous Epithelial Cells - UA 0 SEEN /hpf (5-10); White Blood Cells 0 SEEN /hpf (0-5)
[2024-10-11 22:45] LABS: Color, Urine Yellow (Yellow); Glucose, Dipstick Normal (Normal); Ketone-Dipstick 5 mg/dl (Negative); Leukocyte Esterase-Dipstick 25 /ul (Negative); Nitrite-Dipstick Negative (Negative); Occult Blood-Urine 10 /ul (Negative); Protein-Dipstick 30 mg/dl (Negative); Specific Gravity, Urine 1.015 (1.002-1.030); Urine Clarity Clear (Clear); Urine Urobilinogen 1 mg/dl (Normal)
[2024-10-11 22:52] LABS: International Normalized Ratio 1.2; Prothrombin Time (Protime)PT. 15.3 SECONDS (11.7-14.9)
[2024-10-11 22:53] LABS: BNP,B-Type NATRIURETIC PEPTIDE 264.2 pg/mL (0-100); Partial Thromboplast Time 39.3 Seconds (24.1-36.2)
[2024-10-11 22:55] LABS: Urine Bilirubin Dipstick 1 mg/dL (Negative)
[2024-10-11 22:57] LABS: AST(SGOT) 25 U/L (15-37); Alanine Aminotransfer ALT/SGPT 26 U/L (13-56); Albumin, Serum 3.1 g/dL (3.2-5.0); Alkaline Phosphatase 47 U/L (45-117); Anion Gap 7 (5-15); BUN 36 mg/dL (7-18); BUN/Creat Ratio 21.3 RATIO (10-20); Calcium,Total 9.1 mg/dL (8.5-10.1); Chloride 106 mmol/L (98-107); Creatinine, Serum 1.69 mg/dL (0.55-1.02); EST Glomerular Filtration Rate 31 mL/min (>60); Est Glom Filt Rate - Afr Amer 37 mL/min (>60); Estimated Creatinine Clearance 26.84 ml/min; Globulin 3.2 g/dL (2.2-4.2); Glucose 148 mg/dL (74-106); Potassium 4.1 mmol/L (3.5-5.1); Protein, Total 6.3 g/dL (6.4-8.2); Sodium Level 139 mmol/L (136-145); Troponin-I HS 16 pg/mL (3.0-54.0)
--- NOTE | 2024-10-11 23:00 | ED.RN ---
Per MD orders, the patient does not meet criteria to have fluid resuscitation ordered d/t hx of CHF.
[2024-10-11 23:05] LABS: Fine Granular Cast- Urine 0 SEEN /lpf (0-5); Hyaline Cast 0-5 SEEN /lpf (0-5); Red Blood Cells-Urine 0 SEEN /hpf (0-5)
[2024-10-11 23:07] LABS: Lactic Acid 2.3 mmol/L (0.4-1.9)
[2024-10-12] VITALS (36 sets, daily range): BP systolic 92–132; BP diastolic 38–90; PULSE 61–96; RESP 15–24; TEMP 36.3–36.9; O2SAT 93–100; BMI 34.2
[2024-10-12 02:30] LABS: Reflex Lactate? Y
--- NOTE | 2024-10-12 02:43 | HP.PCM.HOS_ITS ---
[facility] - General General Date of Admission: 10/12/24 Date of Service: 10/12/24 Chief Complaint: Abdominal Pain and Syncope. HPI Narrative LUMA JOYCE, is a 84 F with a past medical history of essential hypertension; on losartan and torsemide, hyperlipidemia; on rosuvastatin, hypothyroidism; on levothyroxine, obesity; with BMI of 30.4 this admission, DM-2; diet controlled currently not on pharmacologic treatment, history of COPD; on as needed albuterol and daily Trelegy Ellipta previously followed by Dr. 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 According to the records patient was noted to be unresponsive and hypotensive in the ~70 mmHg systolic range with patient immediately started on vigorous volume resuscitation. By the time the patient arrived in the ER her mental status greatly improved and she became much more alert and oriented. Ms. Joyce reports she has not felt good for the past ~2-3 days and she has noted diarrhea and blood in her stools. She denies taking any blood thinning medications other than a baby aspirin daily. She denies recent sick contacts, recent travel or recent antibiotic exposure. She admits to generalized abdominal pain that is cramping in nature and moderate with nausea and 1 episode of vomiting with bilious emesis yesterday but has not vomited since that time. She denies associated fever, chills, changes in vision, chest pain, palpitations, heart racing, shortness of breath, cough, dysuria, hematuria, headache, focal motor weakness, paresthesias, back pain or rash. In the ER she was diagnosed with Bloody Diarrhea with possible Sepsis evidenced by: Leukocytosis of 16.5 K and Lactic Acidosis of 2.3 mmol/L present on admission with CT evidence of circumferential wall thickening of the rectum, sigmoid colon, descending colon and transverse colon with pericolonic stranding likely related to acute colitis on an infectious/inflammatory or ischemic basis but no evidence of AAA with soft plaque involving the proximal celiac artery with moderate stenosis and atherosclerotic calcification of the origin of the Right renal artery with moderate stenosis and colonic diverticulosis without diverticulitis and large hiatal hernia along with laboratory evidence of suspected NABILA with BUN of 36 mg/dL and creatinine of 1.69 mg/dL (up from her baseline BUN of 14 mg/dL and serum creatinine of 1 mg/dL last admission) compounded by clinical evidence of Syncope suspected to be due to acute blood loss with decreased hemoglobin of 11.9 g/dL (down from her baseline of 13.8 g/dL last admission) and she was then admitted to the ICU for ongoing treatment under the sepsis protocol for status expected to extend beyond 2 midnights. [facility] Medical History HTN (hypertension) Depression Diabetes mellitus type 2, diet-controlled Hypothyroidism Rheumatoid arthritis Home Medications ?Medication ?Instructions ?Recorded ?Last Taken ?Type gabapentin 400 mg capsule 800 mg PO QHS pain 10/05/15 Unknown History levothyroxine 125 mcg tablet 125 mcg PO DAILY thyroid 10/05/15 09/09/18 06:30 History aspirin 81 mg tablet,delayed 81 mg PO DAILY 10/16/22 U nknown History release (Adult Low Dose Aspirin) cholecalciferol (vitamin D3) 25 25 mcg PO DAILY Unknown History mcg (1,000 unit) capsule albuterol sulfate 90 mcg/actuation 2 inh inhalation Q4 H PRN shortness 10/11/24 Unknown History aerosol inhaler of breath or wheezing ascorbic acid (vitamin C) 1,000 mg 1 g PO DAILY Unknown History capsule bupropion HCl 150 mg 24 hr tablet, 150 mg PO DAILY 06/25 Unknown History extended release ferrous sulfate 325 mg (65 mg 325 mg PO QODAY 10/11/24 Unknown History iron) tablet (FeroSul) fluticasone fur. 100 mcg-umeclid 1 inh inhalation HUNTER Y 10/11/24 Unknown History 62.5 mcg-vilant 25 mcg inhalat.powder (Trelegy Ellipta) isosorbide mononitrate 60 mg 60 mg PO DAILY 10/11/24 U nknown History tablet,extended release 24 hr losartan 100 mg tablet 100 mg PO DAILY 10/11/24 Unk nown History meclizine 12.5 mg tablet 12.5 mg PO DAILY PRN dizzine ss 10/11/24 Unknown History omega-3 fatty acids 1,000 mg 668 mg PO DAILY 10/11/24 Unknown History capsule ondansetron 4 mg disintegrating 4 mg PO Q6H PRN nausea and vomiting 10/11/24 Unknown History tablet potassium chloride 10 mEq 10 meq PO BID 10/11/24 Unkno wn History tablet,extended release(part/cryst) ropinirole 1 mg tablet 2 mg PO DAILY 10/11/24 Unkno wn History rosuvastatin 20 mg tablet 20 mg PO QHS 10/11/24 Unknow n History torsemide 20 mg tablet 20 mg PO DAILY 10/11/24 Unkn own History Allergy/AdvReac Type Severity Reaction Status Date / Time morphine Allergy Intermediate Rash Verified 10/11/24 21:48 lovastatin Allergy Itching Verified 10/11/24 21:48 paroxetine HCl (From Paxil) Allergy Hives, Verified 10/11/24 21:48 Itching Sulfa (Sulfonamide Allergy Itching Verified 10/11/24 21:48 Antibiotics) Surgical History History of right shoulder replacement History of left knee replacement History of carpal tunnel release H/O tubal ligation Social History Smoking Status: Never smoker ROS ROS Narrative Review of Systems: Constitutional: Patient denies fever chills. Eyes: Patient denies changes in vision or discharge from eyes. ENT: Patient denies runny nose, sore throat or ear pain. Resp: Patient denies shortness of breath or cough. CV: Patient admits to syncopal event with severe hypotension but she denies chest pain, palpitations, heart racing or lower extremity edema. GI: Patient admits to generalized abdominal pain with blood in her diarrhea that was bright red as per HPI. : Patient denies dysuria or hematuria. MSK: Patient denies arthralgias or myalgias. Skin: Patient denies rash, abscess, jaundice or wounds. Psych: Patient denies symptoms of uncontrolled depression or anxiety. Neuro: Patient denies headache, paresthesias or focal neurologic deficits. Allergy: Patient denies lip swelling, tongue swelling or urticaria. Hematology: Patient admits to blood in stools as per HPI. Endocrinology: Patient denies polyuria, polydipsia or polyphagia. 14 point review of systems otherwise negative except for positives noted above in HPI. Vital Signs Vital Signs Vital Signs: 10/11/24 21:49 10/11/24 21:53 10/11/24 22:00 Temperature 98.2 F 98.2 F Temperature Source Oral Oral Pulse Rate 65 64 Respiratory Rate 18 18 Blood Pressure 93/48 L 93/48 L 92/42 L Blood Pressure Mean 63 63 58 Pulse Ox 98 96 Oxygen Delivery Method Room Air Room Air 10/11/24 22:07 10/11/24 22:15 10/11/24 22:30 Temperature Temperature Source Pulse Rate Respiratory Rate Blood Pressure 95/50 L 95/50 L Blood Pressure Mean 65 65 Pulse Ox 98 Oxygen Delivery Method Room Air 10/11/24 23:00 10/12/24 00:00 10/12/24 01:00 Temperature 98.2 F Temperature Source Oral Pulse Rate 66 66 64 Respiratory Rate 18 18 18 Blood Pressure 105/57 L 107/54 L 99/54 L Blood Pressure Mean 73 71 69 Pulse Ox 96 96 96 Oxygen Delivery Method Room Air Room Air Room Air 10/12/24 01:56 10/12/24 02:00 Temperature 98.2 F Temperature Source Pulse Rate 63 64 Respiratory Rate 18 18 Blood Pressure 92/51 L 92/49 L Blood Pressure Mean 64 63 Pulse Ox 93 94 Oxygen Delivery Method Room Air Weight Weight: 182 lb 15.739 oz Body Mass Index (BMI) 30.4 Physical Exam Const alert, oriented x3, no apparent distress and healthy appearing Constitutional Narrative: Obese. General Appearance: cooperative HEENT normocephalic, head/scalp atraumatic and hearing grossly normal bilaterally HEENT Narrative: Mucous membranes dry. Eyes PERRL, EOMs intact bilaterally and conjunctivae normal Neck no lymphadenopathy and supple Resp normal respiratory effort, no retractions, no use of accessory muscles and clear to auscultation bilaterally Cardio regular rate and regular rhythm GI normal to inspection, nondistended, normoactive bowel sounds and soft to palpation GI Narrative: Patient noted to be tender in left lower quadrant with no guarding or rebound. Extremity normal to inspection, full ROM and no clubbing, cyanosis or edema Skin Skin Narrative: Patient has evidence of rash, abscess, wounds or jaundice. Neuro oriented x3, CN's II-XII intact bilaterally, moves all extremities and no focal motor deficits Sensorium / Orientation: awake, alert, oriented to person, oriented to place and oriented to time Speech: speech normal Psych affect normal Results Medical Records Data Attestation: I reviewed the patient's medical records Lab / Micro Data Attestation: I reviewed the patient's lab results. 10/11/24 22:23 10/11/24 22:23 Labs: Laboratory Results - last 24 hr 10/11/24 22:23: WBC 16.5 H, RBC 3.91 L, Hgb 11.9 L, Hct 36.3 L, MCV 92.8, MCH 30.4, MCHC 32.8, RDW Std Deviation 49.8 H, RDW Coeff of Micky 14.6, Plt Count 195, MPV 10.5, Immature Gran % (Auto) 0.700, Neut % (Auto) 86.2 H, Lymph % (Auto) 6.8 L, [place] % (Auto) 5.5, Eos % (Auto) 0.6, Baso % (Auto) 0.2, Absolute Neuts (auto) 14.2 H, Absolute Lymphs (auto) 1.12, Nucleated RBC % 0, PT 15.3 H, INR 1.2, APTT 39.3 H, Sodium 139, Potassium 4.1, Chloride 106, Carbon Dioxide 27.0, Anion Gap 7, BUN 36 H, Creatinine 1.69 H, Estim Creat Clear Calc 26.84, Est GFR (MDRD) Af Amer 37 L, Est GFR (MDRD) Non-Af 31 L, BUN/Creatinine Ratio 21.3 H, Glucose 148 H, Lactic Acid 2.3 H*, Calcium 9.1, Total Bilirubin 1.10 H, AST 25, ALT 26, Alkaline Phosphatase 47, Troponin I High Sens 16, B-Natriuretic Peptide 264.2 H, Total Protein 6.3 L, Albumin 3.1 L, Globulin 3.2, Albumin/Globulin Ratio 1.0 10/11/24 22:35: Urine Color Yellow, Urine Clarity Clear, Urine pH 5.0, Ur Specific [place] 1.015, Urine Protein 30 H, Urine Glucose (UA) Normal, Urine Ketones 5 H, Urine Occult Blood 10 H, Urine Nitrite Negative, Urine Bilirubin 1 H, Urine Urobilinogen 1 H, Ur Leukocyte Esterase 25 H, Urine RBC 0 SEEN, Urine WBC 0 SEEN, Ur Squamous Epith Cells 0 SEEN, Urine Bacteria 0 SEEN, Hyaline Casts 0-5 SEEN, Fine Granular Casts 0 SEEN, Urine Mucus 0 SEEN Micro: Microbiology 10/11/24 23:36 Stool Stool Occult Blood (JONNY) - Final Occult Blood Positive 10/11/24 22:25 Mucosa - Nose SARS-CoV-2, Influenza & RSV (PCR) - Final Imaging Radiology Impression Abdomen/Pelvis CTA 10/11/24 22:05 IMPRESSION: 1. Circumferential wall thickening of the rectum, sigmoid colon, descending colon, and distal transverse colon with pericolonic stranding likely related to an acute colitis on an infectious, inflammatory, or ischemic basis. 2. No evidence of abdominal aortic aneurysm or dissection. No active hemorrhage is identified. 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 There is atherosclerotic calcification of the origin of the right renal artery with moderate stenosis. 3. Colonic diverticulosis without diverticulitis. 4. Large hiatal hernia. 5. Additional findings as above. One or more dose reduction techniques were used (e.g., Automated exposure control, adjustment of the mA and/or kV according to patient size, use of iterative reconstruction technique). Reading Location: [facility] Chest X-Ray 10/11/24 22:05 IMPRESSION: 1. No acute cardiopulmonary process. 2. Mild cardiomegaly. 3. Large hiatal hernia. Reading Location: [facility] Assessment & Plan Assessment/Plan (1) Sepsis: QUALIFIERS: Sepsis acute organ dysfunction status: without acute organ dysfunction Sepsis type: sepsis due to unspecified organism Qualified Code(s): A41.9 - Sepsis, unspecified organism (2) Colitis: (3) Bloody diarrhea: (4) Bright red blood per rectum: (5) Adverse drug reaction: QUALIFIERS: Encounter type: initial encounter Qualified Code(s): T50.905A - Adverse effect of unspecified drugs, medicaments and biological substances, initial encounter (6) Lactic acidosis: (7) Leukocytosis: QUALIFIERS: Leukocytosis type: unspecified Qualified Code(s): D 72.829 - Elevated white blood cell count, unspecified (8) NABILA (acute kidney injury): (9) Acute blood loss anemia (ABLA): (10) Syncope and collapse: PLAN: Plan 1. Bloody Diarrhea with possible Sepsis evidenced by: Leukocytosis of 16.5 K and Lactic Acidosis of 2.3 mmol/L present on admission with CT evidence of c ircumferential wall thickening of the rectum, sigmoid colon, descending colon and transverse colon with pericolonic stranding likely related to acute colitis on an infectious/inflammatory or ischemic basis but no evidence of AAA with soft plaque involving the proximal celiac artery with moderate stenosis and atherosclerotic calcification of the origin of the Right renal artery with moderate stenosis and colonic diverticulosis without diverticulitis and large hiatal hernia - Admit to ICU for treatment under the sepsis protocol and under enteric precautions. Continue empiric IV piperacillin-tazobactam begun in the ER and add IV metronidazole in case of C. difficile colitis. Check stool studies. Keep strict n.p.o. start Protonix 40 mg IV twice daily in case of upper GI source. Type and screen blood and transfuse for hemoglobin less than 7 g/dL. Give acetaminophen suppositories as needed for [id number] (level 1- 5/10) pain or fever. Give Dilaudid 0.5 mg IV every 4 hours as needed severe (level 6-10/10) pain. Give ondansetron IV as needed for nausea and vomiting. Finally, we will consult gastroenterology to see this patient on rounds in a.m. for further recommendations regarding possible endoscopic evaluation this admission with help appreciated in advance. 2. Adverse Drug Reaction to BASA likely causing or significantly contributing to #1 - Hold BASA and avoid other potentially blood-thinning medications. 3. Syncopal Event likely due to Severe Hypotension from ABLA with decreased hemoglobin of 11.9 g/dL (down from her previous baseline of 13.8 g/dL last admission) attributable to #1 & #2 - 4. Suspected NABILA with BUN of 36 mg/dL and creatinine of 1.69 mg/dL (up from her baseline BUN of 14 mg/dL and serum creatinine of 1 mg/dL last admission) compounding #1 - #3 - Volume resuscitate and recheck renal indices daily to follow trend. 5. Obesity; with BMI of 30.4 this admission compounding #1 - #4 - Weight loss will be recommended. Check TSH. This complicates her case and may hamper recovery. 6. Essential Hypertension; on losartan and torsemide - Hold scheduled antihypertensives until bleeding is resolved. 7. Hyperlipidemia; on rosuvastatin - Restart statin when patient is safely able to tolerate oral intake. 8. Hypothyroidism; on levothyroxine - Give levothyroxine IV at ~50% of current oral dose. 9. DM-2; diet controlled currently not on pharmacologic treatment - Check HgbA1c this admission to objectively assess quality of diabetic control. 10. History of COPD; on as needed albuterol and daily Trelegy Ellipta previously followed by Dr. Chang Galvez of pulmonology - Maintain current regimen with no signs of acute flare at this time. 11. Chronic KLEBER; on ferrous sulfate daily - Check iron studies and ferritin levels. 12. History of RA - Stable with no current evidence of acute flare. 13. History of CTS; s/p release - Noted. 14. Remote history of tubal ligation - Noted for the sake of completeness. 15. History of vertigo; on as needed meclizine - Stable. 16. Neuropathy; on gabapentin - Stable. Restart gabapentin when patient cleared for oral intake. 17. OA; with history of Right shoulder replacement and Left knee replacement - Stable. Give acetaminophen suppositories prn. 18. DVT prophylaxis - SCD's only in light of #1 contraindicating chemoprophylaxis at this time. Total time: Approximately (but not less than) 75 minutes. Sepsis Attestation Sepsis Attestation: Sepsis Ruled Out Date exam was performed: 10/12/24 Time exam was performed: 03:45 Possible Source of Sepsis: GI tract/intra-abdominal Sepsis Organ Dysfunction Criteria Present: SBP decrease of more than 40 mmHg and Lactic Acid > 2 mmol/L Fluid Resuscitation Fluid resuscitation indicated?: Yes Fluid Resuscitation ordered: 30 ml/kg fluid bolus ordered Amount of fluid ordered: 3 Sepsis Note Date exam was performed: 10/12/24 Time exam was performed: 07:00 Sepsis Attestation: Sepsis re-evaluation was performed Response to fluids: Fluid responsive hypotension Charges/Coding Visit Charges Inpatient E&M: 41902 Init Hosp L3
--- NOTE | 2024-10-12 03:12 | ECHOD_ITS ---
Reason For Study Reason For Study: SYNCOPE Procedure This was a 2D Doppler, Color Flow transthoracic echocardiogram. Exam performed portable in ICU/CCU. Left Ventricle Normal LV size. Left ventricular systolic function is hyperdynamic. The estimated ejection fraction is 75 %. Unable to assess diastolic dysfunction. No regional wall motion abnormalities noted. Right Ventricle Normal RV size. Normal systolic function. Atria There is severe biatrial dilatation. Mitral Valve There is severe mitral annular calcification. There is no mitral valve stenosis. Mild (1+) mitral valve insufficiency. Tricuspid Valve There is no tricuspid stenosis. Mild tricuspid valve insufficiency. Pulmonary artery systolic pressure is 40 mmHg. Aortic Valve Trisinus/trileaflet aortic valve. There is no aortic stenosis. No aortic valve insufficiency. Pulmonic Valve There is no pulmonic valvular stenosis. Trivial pulmonic valve insufficiency. Great Vessels Normal aortic root. Pericardium/Pleural No pericardial effusion. MMode/2D Measurements & Calculations LVIDd: 4.2 cm IVSd: 1.3 cm LVOT diam: 2.0 cm LVIDs: 2.0 cm LVPWd: 1.6 cm LVOT area: 3.1 cm2 RVDd: 3.5 cm FS: 51.8 % asc Aorta Diam: 3.4 cm LAV(MOD-bp): 104.5 ml LVAd ap4: 17.0 cm2 LAV(MOD-bp) Indexed: 57.3 ml/m2 LVLd ap4: 6.2 cm LAV(MOD-sp2): 120.0 ml EDV(MOD-sp4): 39.0 ml LAV(MOD-sp4): 87.4 ml EDV(sp4-el): 39.6 ml LVAs ap4: 7.4 cm2 LVLs ap4: 5.1 cm ESV(MOD-sp4): 9.9 ml ESV(sp4-el): 9.1 ml EF(MOD-sp4): 74.5 % EF(sp4-el): 77.1 % LVAd ap2: 15.5 cm2 SV(MOD-sp4): 29.0 ml SV(MOD-sp2): 24.0 ml LVLd ap2: 6.3 cm SI(MOD-sp4): 15.9 ml/m2 SI(MOD-sp2): 13.2 ml/m2 EDV(MOD-sp2): 30.9 ml EDV(sp2-el): 32.3 ml LVAs ap2: 6.2 cm2 LVLs ap2: 5.2 cm ESV(MOD-sp2): 6.9 ml ESV(sp2-el): 6.4 ml EF(MOD-sp2): 77.7 % SV(sp4-el): 30.5 ml Ao sinus diam: 2.[address] Junction: 2.3 cm LA dimension(2D): 4.1 cm LA A4 area: 26.9 cm2 RA A4 area: 19.0 cm2 TAPSE: 2.5 cm Time Measurements MV dec time: 0.24 sec Doppler Measurements & Calculations MV E max rafat: 119.8 cm/sec Lat Peak E' Rafat: 9.0 cm/sec Med Peak E' Rafat: 7.9 cm/sec MV A max rafat: 119.8 cm/sec E/E' lat: 13.3 E/E' med: 15.1 MV E/A: 1.0 MV V2 max: 134.5 cm/sec MV dec slope: 499.6 cm/sec2 Ao V2 max: 219.0 cm/sec MV max P.2 mmHg Ao max P.2 mmHg MV V2 mean: 86.0 cm/sec Ao V2 mean: 156.4 cm/sec MV mean P.4 mmHg Ao mean P.8 mmHg MV V2 VTI: 41.0 cm Ao V2 VTI: 51.0 cm MVA(VTI): 2.3 cm2 AV (velocity ratio): 0.59 HUMBERTO(I,D): 1.8 cm2 HUMBERTO(V,D): 1.8 cm2 LV V1 max: 127.2 cm/sec SV(LVOT): 93.9 ml PA V2 max: 87.3 cm/sec LV V1 max P.5 mmHg LV V1 mean P.5 mmHg LV V1 mean: 87.2 cm/sec LV V1 VTI: 30.2 cm TR max rafat: 279.4 cm/sec TR max P.2 mmHg ECHO/Echo Complete Interpretation Summary Left ventricular systolic function is hyperdynamic. The estimated ejection fraction is 75 %. There is severe biatrial dilatation. Mild (1+) mitral valve insufficiency. Unable to assess diastolic dysfunction. Ordering Physician: Kiran Perry Performed By: Meggan Berg RDCS
[2024-10-12 04:18] LABS: Lactic Acid 1.3 mmol/L (0.4-1.9)
[2024-10-12] MEDS: Piperacil/Tazobactam 3.375 GM in 0.9% Normal Saline (50mL MB+) 50 ML IV ×3 (04:27→20:46)
[2024-10-12] MEDS: Gabapentin 800 MG Tablet PO ×2 (04:32→20:47)
[2024-10-12 04:39] LABS: Ferritin 62 ng/mL (8-252); Iron 17 ug/dL (50-170); Iron Binding Capacity,Total 330 ug/dL (250-450); PERCENT IRON SATURATION 5.2 % (15.0-55.0)
[2024-10-12] MEDS: 0.9% Normal Saline (1000mL) 1,000 ML 999 ML IV ×3 (06:40→08:47)
[2024-10-12] MEDS: metroNIDAZOLE 500 MG/100 ML BAG 100 MG IV (06:56)
--- NOTE | 2024-10-12 07:56 | EX.PCM.CONCC ---
Assessment & Plan Assessment/Plan (1) NABILA (acute kidney injury): (2) Bloody diarrhea: PLAN: Plan RECOMMENDATIONS: 1. Complete IV fluid resuscitation as ordered. 2. Await results of GI infectious workup. 3. Continue empiric antibiotics. 4. Continue PPI therapy. 5. Awaiting gastroenterology evaluation. 6. Continue scheduled bronchodilators. IMPRESSIONS: 1. Bloody diarrhea with hypotension Clinical concern for acute colitis, potentially infectious versus ischemic in etiology. However, the patient has not demonstrated any further episodes of diarrhea since her admission. She has responded appropriately to IV fluid resuscitation. At this time, we will plan to continue supportive care, while awaiting gastroenterology evaluation. 2. Acute kidney injury Most likely prerenal in etiology in the setting of hypovolemia. The patient has been adequately volume resuscitated and remains hemodynamically stable. Creatinine has improved with volume expansion. Continue to monitor urine output. No current indication for renal replacement therapy. 3. History of COPD/hypertension/hyperlipidemia/hypothyroidism Complicates care, management, recovery and prognosis. Continue to hold home antihypertensives. Continue scheduled bronchodilators as ordered. This note was generated with [employer] dictation software. It may contain incorrect words, spelling, and punctuation that were not noted in checking the note before signing. HPI Consult Data Date of Consult: 10/12/24 HPI Narrative Reason for Consultation: Critical care management HPI Narrative: The patient is an 84-year-old female, with a history as outlined below, who presented to the emergency department on October 12 with bloody diarrhea of 2 to 3 days duration. The patient has a known history of COPD was previously under the care of Dr. Galvez until his departure. She is currently being maintained on Trelegy and as needed albuterol. In addition, she has a known history of hypothyroidism, hyperlipidemia and hypertension. She is not currently on any blood thinners on an outpatient basis. On presentation to the emergency department, the patient was documented to be afebrile with a presenting blood pressure of 93/48 mmHg. Laboratory evaluation was notable for a white blood cell count of 16,000. Chemistry profile was notable for a creatinine of 1.69. Lactate was mildly elevated at 2.3. BNP was increased to 264. CT abdomen/pelvis demonstrated circumferential wall thickening of the rectum, sigmoid, descending and distal transverse colon likely secondary to acute colitis. The patient was ordered to receive supplemental IV fluid hydration was started empirically on antimicrobials. Enteric panel and C. difficile PCR's were sent. Gastroenterology consultation was placed. At the time of my evaluation of the patient this morning, she denied any overt abdominal pain and is responding appropriately to volume resuscitation, without the need for vasopressor support. Repeat labs demonstrated overall stability in her hemoglobin at 11.0 g/dL. Creatinine had improved to 1.27. Lactic acidemia had resolved. [facility] Medical History HTN (hypertension) Depression Diabetes mellitus type 2, diet-controlled Hypothyroidism Rheumatoid arthritis Home Medications ?Medication ?Instructions ?Recorded ?Last Taken ?Type gabapentin 400 mg capsule 800 mg PO QHS pain 10/05/15 Unknown History levothyroxine 125 mcg tablet 125 mcg PO DAILY thyroid 10/05/15 09/09/18 06:30 History aspirin 81 mg tablet,delayed 81 mg PO DAILY 10/16/22 Unknown History release (Adult Low Dose Aspirin) cholecalciferol (vitamin D3) 25 25 mcg PO DAILY 10/16/22 Unknown History mcg (1,000 unit) capsule albuterol sulfate 90 mcg/actuation 2 inh inhalation Q4H PRN shortness 10/11/24 Unknown History aerosol inhaler of breath or wheezing ascorbic acid (vitamin C) 1,000 mg 1 g PO DAILY 10/11/24 Unknown History capsule bupropion HCl 150 mg 24 hr tablet, 150 mg PO DAILY 10/11/24 Unknown History extended release ferrous sulfate 325 mg (65 mg 325 mg PO QODAY 10/11/24 Unknown History iron) tablet (FeroSul) fluticasone fur. 100 mcg-umeclid 1 inh inhalation DAILY 10/11/24 Unknown History 62.5 mcg-vilant 25 mcg inhalat.powder (Trelegy Ellipta) isosorbide mononitrate 60 mg 60 mg PO DAILY 10/11/24 Unknown History tablet,extended release 24 hr losartan 100 mg tablet 100 mg PO DAILY 10/11/24 Unknown History meclizine 12.5 mg tablet 12.5 mg PO DAILY PRN dizziness 10/11/24 Unknown History omega-3 fatty acids 1,000 mg 668 mg PO DAILY 10/11/24 Unknown History capsule ondansetron 4 mg disintegrating 4 mg PO Q6H PRN nausea and vomiting 10/11/24 Unknown History tablet potassium chloride 10 mEq 10 meq PO BID 10/11/24 Unknown History tablet,extended release(part/cryst) ropinirole 1 mg tablet 2 mg PO DAILY 10/11/24 Unknown History rosuvastatin 20 mg tablet 20 mg PO QHS 10/11/24 Unknown History torsemide 20 mg tablet 20 mg PO DAILY 10/11/24 Unknown History Allergy/AdvReac Type Severity Reaction Status Date / Time morphine Allergy Intermediate Rash Verified 10/11/24 21:48 lovastatin Allergy Itching Verified 10/11/24 21:48 paroxetine HCl (From Paxil) Allergy Hives, Verified 10/11/24 21:48 Itching Sulfa (Sulfonamide Allergy Itching Verified 10/11/24 21:48 Antibiotics) Surgical History History of right shoulder replacement History of left knee replacement History of carpal tunnel release H/O tubal ligation Social History Smoking Status: Never smoker ROS ROS Narrative 10 systems were reviewed with pertinent positives as noted in the HPI above. Physical Exam Const alert and no apparent distress General Appearance: cooperative HEENT normocephalic and head/scalp atraumatic Eyes PERRL, EOMs intact bilaterally and conjunctivae normal Neck supple General: trachea midline Chest inspection of chest normal Resp normal respiratory effort Auscultation: Negative for rales, rhonchi or wheezes Cardio regular rate and regular rhythm GI soft to palpation and non-tender Extremity no clubbing, cyanosis or edema Skin no rashes or lesions noted Neuro CN's II-XII intact bilaterally, moves all extremities and no focal motor deficits Lab / Micro Data 10/12/24 10:00 10/12/24 10:00 Labs: Laboratory Results - last 24 hr 10/11/24 22:23: WBC 16.5 H, RBC 3.91 L, Hgb 11.9 L, Hct 36.3 L, MCV 92.8, MCH 30.4, MCHC 32.8, RDW Std Deviation 49.8 H, RDW Coeff of Micky 14.6, Plt Count 195, MPV 10.5, Immature Gran % (Auto) 0.700, Neut % (Auto) 86.2 H, Lymph % (Auto) 6.8 L, [place] % (Auto) 5.5, Eos % (Auto) 0.6, Baso % (Auto) 0.2, Absolute Neuts (auto) 14.2 H, Absolute Lymphs (auto) 1.12, Nucleated RBC % 0, PT 15.3 H, INR 1.2, APTT 39.3 H, Sodium 139, Potassium 4.1, Chloride 106, Carbon Dioxide 27.0, Anion Gap 7, BUN 36 H, Creatinine 1.69 H, Estim Creat Clear Calc 26.84, Est GFR (MDRD) Af Amer 37 L, Est GFR (MDRD) Non-Af 31 L, BUN/Creatinine Ratio 21.3 H, Glucose 148 H, Lactic Acid 2.3 H*, Calcium 9.1, Iron 17 L, TIBC 330, Iron Saturation 5.2 L, Ferritin 62, Total Bilirubin 1.10 H, AST 25, ALT 26, Alkaline Phosphatase 47, Troponin I High Sens 16, B-Natriuretic Peptide 264.2 H, Total Protein 6.3 L, Albumin 3.1 L, Globulin 3.2, Albumin/Globulin Ratio 1.0, TSH 3.430 10/11/24 22:35: Urine Color Yellow, Urine Clarity Clear, Urine pH 5.0, Ur Specific [place] 1.015, Urine Protein 30 H, Urine Glucose (UA) Normal, Urine Ketones 5 H, Urine Occult Blood 10 H, Urine Nitrite Negative, Urine Bilirubin 1 H, Urine Urobilinogen 1 H, Ur Leukocyte Esterase 25 H, Urine RBC 0 SEEN, Urine WBC 0 SEEN, Ur Squamous Epith Cells 0 SEEN, Urine Bacteria 0 SEEN, Hyaline Casts 0-5 SEEN, Fine Granular Casts 0 SEEN, Urine Mucus 0 SEEN 10/12/24 03:40: Lactic Acid 1.3 Micro: Microbiology 10/11/24 23:36 Stool Stool Occult Blood (JONNY) - Final Occult Blood Positive 10/11/24 22:25 Mucosa - Nose SARS-CoV-2, Influenza & RSV (PCR) - Final Imaging Radiology Impression Abdomen/Pelvis CTA 10/11/24 22:05 IMPRESSION: 1. Circumferential wall thickening of the rectum, sigmoid colon, descending colon, and distal transverse colon with pericolonic stranding likely related to an acute colitis on an infectious, inflammatory, or ischemic basis. 2. No evidence of abdominal aortic aneurysm or dissection. No active hemorrhage is identified. 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 There is atherosclerotic calcification of the origin of the right renal artery with moderate stenosis. 3. Colonic diverticulosis without diverticulitis. 4. Large hiatal hernia. 5. Additional findings as above. One or more dose reduction techniques were used (e.g., Automated exposure control, adjustment of the mA and/or kV according to patient size, use of iterative reconstruction technique). Reading Location: [facility] Chest X-Ray 10/11/24 22:05 IMPRESSION: 1. No acute cardiopulmonary process. 2. Mild cardiomegaly. 3. Large hiatal hernia. Reading Location: [facility] Charges/Coding Visit Charges Inpatient E&M: 69609 Init Hosp L3
--- NOTE | 2024-10-12 09:06 | PN.HOSP_ITS ---
Reason for Visit Reason for Visit: Diagnoses Sepsis, unspecified organism (10/12/24) Acute posthemorrhagic anemia (10/12/24) Elevated white blood cell count, unspecified (10/12/24) Acidosis, unspecified (10/12/24) Noninfective gastroenteritis and colitis, unspecified (10/12/24) Hemorrhage of anus and rectum (10/12/24) Acute kidney failure, unspecified (10/12/24) Diarrhea, unspecified (10/12/24) Syncope and collapse (10/12/24) Adverse effect of unspecified drugs, medicaments and biological substances, initial encounter (10/12/24) Subjective Subjective Still with abdominal pain. Never had before. Objective Data Objective Data Vital Signs: Vital Signs Temp Pulse Resp BP Pulse Ox O2 Del Method 36.8 C 65 18 110/63 100 Room Air 10/12/24 08:00 10/12/24 08:00 10/12/24 08:00 10/12/24 08:00 10/12/24 08:00 10/12/24 08:00 Oxygen Delivery Method Room Air Weight: 79.6 kg Body Mass Index (BMI) 34.2 Intake & Output: Intake and Output for Last 24 Hours 10/10/24 10/11/24 10/12/24 23:59 23:59 23:59 Intake Total 1700 / 1700 2150 / 2150 Output Total 0 / 0 Balance 1700 / 1700 2150 / 2150 Lab / Micro Data 10/12/24 10:00 10/12/24 10:00 Labs: Laboratory Results - last 24 hr 10/11/24 22:23: WBC 16.5 H, RBC 3.91 L, Hgb 11.9 L, Hct 36.3 L, MCV 92.8, MCH 30.4, MCHC 32.8, RDW Std Deviation 49.8 H, RDW Coeff of Micky 14.6, Plt Count 195, MPV 10.5, Immature Gran % (Auto) 0.700, Neut % (Auto) 86.2 H, Lymph % (Auto) 6.8 L, [place] % (Auto) 5.5, Eos % (Auto) 0.6, Baso % (Auto) 0.2, Absolute Neuts (auto) 14.2 H, Absolute Lymphs (auto) 1.12, Nucleated RBC % 0, PT 15.3 H, INR 1.2, APTT 39.3 H, Sodium 139, Potassium 4.1, Chloride 106, Carbon Dioxide 27.0, Anion Gap 7, BUN 36 H, Creatinine 1.69 H, Estim Creat Clear Calc 26.84, Est GFR (MDRD) Af Amer 37 L, Est GFR (MDRD) Non-Af 31 L, BUN/Creatinine Ratio 21.3 H, Glucose 148 H, Lactic Acid 2.3 H*, Calcium 9.1, Iron 17 L, TIBC 330, Iron Saturation 5.2 L, Ferritin 62, Total Bilirubin 1.10 H, AST 25, ALT 26, Alkaline Phosphatase 47, Troponin I High Sens 16, B-Natriuretic Peptide 264.2 H, Total Protein 6.3 L, A lbumin 3.1 L, Globulin 3.2, Albumin/Globulin Ratio 1.0, TSH 3.430 10/11/24 22:35: Urine Color Yellow, Urine Clarity Clear, Urine pH 5.0, Ur Specific [place] 1.015, Urine Protein 30 H, Urine Glucose (UA) Normal, Urine Ketones 5 H, Urine Occult Blood 10 H, Urine Nitrite Negative, Urine Bilirubin 1 H, Urine Urobilinogen 1 H, Ur Leukocyte Esterase 25 H, Urine RBC 0 SEEN, Urine WBC 0 SEEN, Ur Squamous Epith Cells 0 SEEN, Urine Bacteria 0 SEEN, Hyaline Casts 0-5 SEEN, Fine Granular Casts 0 SEEN, Urine Mucus 0 SEEN 10/12/24 03:40: Lactic Acid 1.3 Micro: Microbiology 10/11/24 23:36 Stool Stool Occult Blood (JONNY) - Final Occult Blood Positive 10/11/24 22:25 Mucosa - Nose SARS-CoV-2, Influenza & RSV (PCR) - Final Radiography Diagnostic Testing: Radiology Impression Abdomen/Pelvis CTA 10/11/24 22:05 IMPRESSION: 1. Circumferential wall thickening of the rectum, sigmoid colon, descending colon, and distal transverse colon with pericolonic stranding likely related to an acute colitis on an infectious, inflammatory, or ischemic basis. 2. No evidence of abdominal aortic aneurysm or dissection. No active hemorrhage is identified. 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 There is atherosclerotic calcification of the origin of the right renal artery with moderate stenosis. 3. Colonic diverticulosis without diverticulitis. 4. Large hiatal hernia. 5. Additional findings as above. One or more dose reduction techniques were used (e.g., Automated exposure control, adjustment of the mA and/or kV according to patient size, use of iterative reconstruction technique). Reading Location: [facility] Chest X-Ray 10/11/24 22:05 IMPRESSION: 1. No acute cardiopulmonary process. 2. Mild cardiomegaly. 3. Large hiatal hernia. Reading Location: [facility] Physical Exam Const alert and no apparent distress HEENT head/scalp atraumatic and moist oral mucous membranes Resp normal respiratory effort, no retractions and no use of accessory muscles Cardio regular rate, regular rhythm, S1 normal heart sound and S2 normal heart sound GI normal to inspection, nondistended, normoactive bowel sounds, soft to palpation, non-tender and non-distended Neuro Sensorium / Orientation: awake and alert Assessment & Plan Assessment/Plan (1) Sepsis: QUALIFIERS: Sepsis acute organ dysfunction status: without acute organ dysfunction Sepsis type: sepsis due to unspecified organism Qualified Code(s): A41.9 - Sepsis, unspecified organism PLAN: POA. See H+P for criteria 2/2 colitis Follow up cultures (2) Colitis: PLAN: Infectious v ischemic. on pip/tazo and metronidazole (3) Bloody diarrhea: PLAN: 2/2 colitis. Cannot qualify ABLA at this time, since last Hg in our system is from 2019. Will monitor. No need to transfuse unless Hg 7 or less. Continue to hold ASA. GI on consult. (4) NABILA (acute kidney injury): PLAN: v CKD. Again, no labs since 2020. Monitor. (5) Syncope and collapse: PLAN: likely vasovagal from colitis monitor. echo pending. PLAN: Plan Chronic conditions: * Essential Hypertension; on losartan and torsemide - Held 2/2 NABILA/CKD * Hyperlipidemia; rosuvastatin held * Hypothyroidism; on levothyroxine 125 at home. Notified by pharmacy that they do not do IV daily dosing of levothyroxine. Instead, they wait 7 days and then do a every 3-day dosing of the larger dose of levothyroxine so as not to waste levothyroxine as it is expensive. With that being said, I do not anticipate the patient is going to be n.p.o. for 7 days and since that is the policy will resume oral medications when we are able. * DM-2; diet controlled currently not on pharmacologic treatment - Check HgbA1c this admission to objectively assess quality of diabetic control. * History of COPD; on as needed albuterol and daily Trelegy Ellipta previously followed by Dr. Chang Galvez of pulmonology - Maintain current regimen with no signs of acute flare at this time. * Chronic KLEBER; on ferrous sulfate daily. Iron low with abnormally normal ferritin. Will given dose of IV iron. DVT prophylaxis - SCD's DW patient's son at bedside. Charges/Coding Procedures Hospitalists Procedures: Other Procedure - See Report (Nonbillable rounding as patient was admitted after midnight.)
[2024-10-12] MEDS: Pantoprazole Sodium 40 MG in 0.9% Normal Saline (100mL MB+) 100 ML 330 MG IV ×2 (09:37→20:46)
[2024-10-12 09:46] LABS: Hemoglobin A1c 5.3 % (3.8-5.6)
[2024-10-12] MEDS: Sodium Ferric Gluconat/Sucrose 250 MG in 0.9% Normal Saline (250mL Bag) 250 ML 135 MG IV (09:57)
--- NOTE | 2024-10-12 10:06 | CASEMGMT ---
RN CM Assessment Per the pt RN, pt is currently confused and the pt son is at the bedside. RN CM to pt room at this time. Pt sons, Ray and Elkin, are at the bedside and willing to help answer this RN CM questions for assessment. Ray states that he lives with the pt. Care providers, pharmacy, and demographics verified. Admitting dx: Sepsis with bloody diarrhea and severe colitis LACE Strata: 2 PCP: Emely Martinez Specialists: Henrry (Cardio), Siri Kumar ([facility]) Preferred Pharmacy: [facility] Insurance: [employer] A/B, [place] Prescription Benefit: Yes LNOK: Ariel Joyce (son), Ray Joyce (Son), Elkin Joyce (son) Living Arrangements: Pt lives with his son Ray in a single story home with 3 steps to enter ADLs/IADLs: Ray states that the pt is normally 90% independent. Ray is able to provide assistance as needed. Transportation: Self ([place] distance per Ray), sons DME: Raised Toilet Seat, Grab bars, FWW, Cane, BP Machine, weight scale, pulse ox. HHC/SNF: Ray states the pt pt had HH x2 years ago but cannot recall the name of the agency. Hx at [facility] for a short term stay Pt?s goal: TBD Plan: Anticipate home with the pt son, follow for HH, OP Tx, or CCN needs. Ray states that the pt would likely deny SNF needs. ST is ordered. Per ICU rounds, PT is to be held today and PT will evaluate tomorrow. Pt sons deny further questions or concerns at this time. CM to follow. [place] RN, CM
[2024-10-12 10:19] LABS: Absolute Lymphocyte Count 1.74 X10^3/uL (0.83-4.51); Absolute Neutrophil Count 9.7 X10^3/uL (2.0-7.7); Basophil# 0.03 X10^3/uL; Basophil% 0.2 % (0-1); Eosinophil# 0.26 X10^3/uL; Eosinophils% 2.1 % (0-5); Hematocrit 34.3 % (37-47); Lymphocyte # 1.74 X10^3/ul (0.83-4.51); Lymphocyte % 13.9 % (19-41); Mean Corp Hgb Conc 32.1 g/dL (32-36); Mean Corpuscular Volume 93.5 fL (81-99); Monocyte# 0.72 X10^3/uL; Monocyte% 5.7 % (0-10); NRBC Flagged by Analyzer 0 % (0-5); Neutrophil # 9.71 X10^3/uL (2.7-7.7); Neutrophil % 77.5 % (47-70); Platelet Count 168 K/mm3 (150-450); RBC Distribution Width CV 14.6 % (11.6-14.6); RBC Distribution Width SD 49.9 fl (35.1-43.9); Red Blood Count 3.67 M/mm3 (4.2-5.4); White Blood Count 12.5 K/mm3 (4.4-11.0)
[2024-10-12 10:50] LABS: Anion Gap 4 (5-15); BUN 27 mg/dL (7-18); BUN/Creat Ratio 21.3 RATIO (10-20); Calcium,Total 8.5 mg/dL (8.5-10.1); Chloride 112 mmol/L (98-107); Creatinine, Serum 1.27 mg/dL (0.55-1.02); EST Glomerular Filtration Rate 43 mL/min (>60); Est Glom Filt Rate - Afr Amer 52 mL/min (>60); Estimated Creatinine Clearance 31.34 ml/min; Glucose 86 mg/dL (74-106); Potassium 3.8 mmol/L (3.5-5.1); Sodium Level 140 mmol/L (136-145)
[2024-10-12] MEDS: Ipratropium/Albuterol Sulfate 3 ML AMPUL.NEB INHALATION ×2 (12:41→19:18)
--- NOTE | 2024-10-12 12:58 | CHAPLAIN ---
Type of Pastoral Visit _x__ Initial Visit ___ Follow-up Visit ___ On-call Visit ___ General Patient Visit ___ Spiritual Assessment ___ Family Conference ___ Bereavement ___ Rapid Response ___ Code Blue ___ Other (describe below) Pastoral Care Referral From __x_ Patient ___ Family ___ Nurse ___ Physician ___ Anode Crew Supervisor ___ Web Design Specialist ___ Other (describe below) Sacrament/Intervention _x__ Active listening ___ Anointing ___ Bahai ___ Bereavement ___ Communion _x__ Melissa exploration ___ _x__ Life review _x__ Prayer ___ Reconciliation ___ Sacrament of Sick _x__ Supportive presence ___ Wedding ___ Other (describe below) Pastoral Comments patient and her oldest son are in the room; pt is pleasant and welcoming; pt is quite talkative and explained that she had expected this packer fuser to come to visit; pt asks questions; pt responds well to questions asked of her; pt goal is to have answers on her health needs; son is engaged in conversation too; pt expresses her melissa in God and her assurance of eternal life when she dies; pt has long history with a local christian; pt welcomes prayers and expresses thanks for the visit
--- NOTE | 2024-10-12 16:40 | EGD_PTH ---
PATIENT: LUMA GUTIÉRREZ LOC: ICU U#:[id number] AGE/SX: 84/F ROOM: ICU10 RE10/12/[address]: Dr. Fabrice Bolanos DO : 1940 BED: 1 DIS: 10/13/2024 SPEC #: [id number] RECD: 10/13/24 07:22 STATUS: ELIZABETH REQ #: [id number] LEO: 10/12/24 16:[address]: Carmelo Ridley DEPT: SURGICAL PATHOLOGY RECD BY: Claude Lozada ENTERED: 10/13/24 08:47 SP TYPE: EGD BIOPSY OTHR DR: MD Dr. Shaun Brunner MD Dr. Bruce Arthur, MD Dr. Derek Brown, DO Dr. Kiran Low Dr., MD Dr. Eric Jopperi, DO Dr. Edward Matheis, MD Dr. Gautam Baskaran, MD Dr. Yordanos Habtegebriel, MD Dr. Hemant Dand, MD Dr. Jose Ochoa, MD Dr. Justin Wong, MD Dr. Kimber Foust, MD Dr. Lamia Aljundi, MD Dr. Marisa Magana, MD Dr. Pritam Ghosh, MD Dr. Pavan Irukulla, MD Dr. Saad Farooqi, MD Dr. Sukhdeep Dhesi, DO Dr. Sujoy Gill, MD Dr. Soleyah Groves, MD Dr. Timothy Fernstrom, MD Dr. Darvin Estrada Dr., MD Rebecca Bean, PA Tissues: A - Gastric mucous membrane B - Sigmoid colon biopsy Procedures: Surgery Specimen Level IV HEADER OPERATION: EGD, flexible sigmoidoscopy PRE-OP DIAGNOSIS: Sepsis, colitis, bloody diarrhea, bright red blood per rectum TISSUE SUBMITTED: A- Gastric ulcer biopsy, B- Sigmoid biopsy MICROSCOPIC DIAGNOSIS A. Gastric ulcer, biopsy: Mild gastritis. See microscopic description and comment. B. Sigmoid, biopsy: A fragment of colonic mucosa with changes consistent with ischemic colitis. Focal acute colitis. See comment. 10/14/2024 COMMENT A. The results of immunohistochemistry for Helicobacter pylori will be reported separately ([id number]). B. Focal acute inflammation is noted in the lamina propria. Cryptitis, crypt abscesses or granulomas are not seen. Correlation with clinical, endoscopic findings and appropriate follow up are necessary. MICROSCOPIC DESCRIPTION Slides are reviewed. A. The specimen shows fragments of gastric mucosa with chronic inflammatory cell infiltrates in the lamina propria consisting of lymphocytes and plasma cells, consistent with mild chronic gastritis. GROSS DESCRIPTION A. Received in fixative is one container labeled with the patient's name and designated Gastric ulcer biopsy. The specimen consists of two irregular fragments of light spicer soft tissue that in aggregate measure 0.8 x 0.5 x 0.1 cm. The specimen is totally submitted in one cassette. B. Received in fixative is one container labeled with the patient's name and designated Sigmoid biopsy. The specimen consists of one irregular fragment of light spicer soft tissue that measures 0.3 x 0.3 x 0.1 cm. The specimen is totally submitted in one cassette. / 10/13/2024 TC:5 CPT:[id number]
--- NOTE | 2024-10-12 16:40 | IMM_PTH ---
PATIENT: LUMA GUTIÉRREZ LOC: ICU U#:[id number] AGE/SX: 84/F ROOM: ICU10 RE10/12/[address]: Dr. Fabrice Bolanos DO : 1940 BED: 1 DIS: 10/13/2024 SPEC #: [id number] RECD: 10/13/24 09:22 STATUS: SOUT REQ #: [id number] LOE: 10/12/24 16:[address]: Carmelo Ridley DEPT: IMMUNOHISTOCHEMISTRY RECD BY: To Lo ENTERED: 10/13/24 09:23 SP TYPE: IMMUNO OTHR DR: MD Dr. Shaun Brunner MD Dr. Bruce Arthur, MD Dr. Derek Brown, DO Dr. Kiran Low Dr., MD Dr. Eric Jopperi, DO Dr. Edward Matheis, MD Dr. Gautam Baskaran, MD Dr. Yordanos Habtegebriel, MD Dr. Hemant Dand, MD Dr. Jose Ochoa, MD Dr. Justin Wong, MD Dr. Kimber Foust, MD Dr. Lamia Aljundi, MD Dr. Marisa Magana, MD Dr. Pritam Ghosh, MD Dr. Pavan Irukulla, MD Dr. Saad Farooqi, MD Dr. Sukhdeep Dhesi, MD Dr. Miya Rodrigues Dr., MD Dr. Timothy Fernstrom, DO MD Dr. Darvin Mary MD Rebecca Bean, PA Tissues: A - Gastric mucous membrane Procedures: H Pylori (initial) PHYSICIAN [facility] INSTITUTION [address] [address] SPECIMEN INFORMATION: Tissue Source: A- Gastric ulcer biopsy Clinical Info: Sepsis, colitis, bloody diarrhea, bright red blood per rectum Specimen Number: [id number] CPT code: 48164 METHODOLOGY: Deparaffinized sections of prefer/formalin-fixed tissue or PAP/DQ stained slides are incubated with monoclonal/polyclonal antibodies/oligonucleotide probes. Localization is made via biotin free immunoperoxidase method. Appropriate controls are performed and reacted as expected. Results on target cell population are indicated in the following table: RESULTS: ANTIBODY / CLONE RESULT Block A H Pylori (polyclonal) negative These tests were developed and their performance characteristics determined by [facility]. They may not have been cleared or approved by the U.S. Food and Drug Administration. The FDA has determined that such clearance or approval is not necessary. The above immunohistochemical/dualISH markers are ordered and reviewed by the Pathologist. INTERPRETATION: A. Gastric ulcer, biopsy: Negative for Helicobacter pylori organisms. 10/14/2024
--- NOTE | 2024-10-12 16:57 | PRE.ANES_ITS ---
ASA Classification* ASA Classification ASA Classification: 3 and E Assessment & Plan Anesthesia* Anesthesia Assessment Anesthesia Assessment: Discussed sedation and/or anesthesia options, risks, benefits, and alternatives with patient/parents/legal guardian/POA. Questions invited. The patient/parents/legal guardian/POA seems to understand and agrees to proceed with anesthesia plan. Reviewed the physical assessment, medical history, allergy history and patient home medications list prior to surgery/procedure/anesthetic and documented any changes. Performed airway and anesthesia risk assessments. Anesthesia Type Anesthesia Type: MAC History Source History Obtained from:: Patient and Chart Anesthesia Focused Assessment* Temperature: 98.1 F Pulse Rate: 68 Blood Pressure: 126/61 Respiratory Rate: 16 Pulse Ox: 99 Oxygen Delivery Method: Room Air Airway Assessment Mouth opens: >3 cm Mallampati Score: II Teeth Condition: Missing (Patient is edentulous.) Neck Range of motion (ROM): Limited ROM Focused Labs Anesthesia Preop lab: CBC WBC 12.5 K/mm3 (4.4-11.0) H 10/12/24 10: 5 RBC 3.67 M/mm3 (4.2-5.4) L 10/12/24 10:10/12/24 Hgb 11.0 g/dL (12.0-15.0) L 10/12/24 10: 5 Hct 34.3 % (37-47) L 10/12/24 10:10/12/24 Plt Count 168 K/mm3 (150-450) 10/12/24 10:10/12/24 CHEMISTRY Potassium 3.8 mmol/L (3.5-5.1) 10/12/24 10:10/12/24 Sodium 140 mmol/L (136-145) 10/12/24 10:10/12/24 BUN 27 mg/dL (7-18) H 10/12/24 10:10/12/24 Creatinine 1.27 mg/dL (0.55-1.02) H 10/12/24 10: Glucose 86 mg/dL (74-106) 10/12/24 10:10/12/24 POC Glucose 110 mg/dL (70-110) 09/09/18 11:12 09/09/18 TSH 3.430 uIU/mL (0.358-3.740) 10/11/24 22:10/02 COAG PT 15.3 SECONDS (11.7-14.9) H 10/11/24 22:23 10/02 Pre-Assessment Diagnosis/Proposed Procedure Planned Operative Procedure(s): Esophagogastroduodenoscopy. 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 When Was Last Pacemaker Check QUESTION #4 FULL TEXT: You/Your Family Experience fever (hyperthermia) with Anesthesia Last Oral Intake Last Oral intake: Last Oral Intake NPO since 00:00 10/12/24 16:27 Meds taken in AM with sips of water? Meds patient instructed to take am of surgery PONV PONV - resource conservation specialist: PONV - resource conservation specialist Female HX of Motion Sickness HX of N/V After Surgery Non-Smoker Duration of Surgery greater than 60 minutes Number of Risk Factors PONV Score Height & Weight Height & Weight: Anesthesia: Height & Weight Height 5 ft 10/12/24 16:27 Weight: 79.6 kg 10/12/24 16:27 Body Mass Index (BMI) 34.2 10/12/24 16:27 Respiratory Assessment Respiratory Assessment - resource conservation specialist: Respiratory Tract Infection Hx - resource conservation specialist Hx Respiratory Tract Infection No 08/27/18 15:27 STOP Sleep Apnea STOP Sleep Apnea - resource conservation specialist: STOP Sleep Apnea - resource conservation specialist Hx Hypertension Yes 10/12/24 06:18 Hx Sleep Apnea No 10/12/24 06:18 CPAP No 09/09/18 10:45 BIPAP Do you snore loudly (louder No 10/12/24 06:18 than talking or can be heard Do you often feel tired/ No 10/12/24 06:18 fatigued/ sleepy during daytime? Has anyone observed you stop No 10/12/24 06:18 breathing during sleep? STOP Results Negative 10/12/24 06:18 QUESTION #5 FULL TEXT : Do you snore loudly (louder than talking or can be heard through closed doors)? 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 Specify any problems Hx of Preganancy in last 3 N/A 10/12/24 06:18 Months Nurse Filling Out Transfusion [id number] 10/12/24 06:18 & Questions: Date: 10/12/24 10/12/24 06:18 Time: 06:33 10/12/24 06:18 Patient unable to answer at this time (ie. confused, unrespo /Reproduction History /Reproductive History - resource conservation specialist: /Reproductive Hx- resource conservation specialist Hx Now Gestational Age (in weeks): EDC: Hx Hx Para Hx Section SAB Active Medications Active Medications: Current Medications Generic Name Dose Route Start Last Admin Trade Name Freq PRN Reason Stop Dose Admin Acetaminophen 650 mg 10/12/24 06:17 Acetaminophen 650 Mg Suppository RC Q6H PRN PRN Pain 1-10 or Fever Albuterol Sulfate 2.5 mg 10/12/24 06:25 Albuterol 2.5 Mg/3 Ml Vial.Neb. INHALATION Q4H PRN shortness of breath or wheezing Albuterol/Ipratropium 3 ml 10/12/24 06:30 10/12/24 12:41 Ipratropium/Albuterol Sulfate 3 Ml Ampul.Neb INHALATION 3 ml Q6HWA.RT BECCA Administration Budesonide 0.5 mg 10/12/24 06:30 Budesonide Respules 0.5 Mg/2 Ml Ampul.Neb. INHALATION Q12H.RT BECCA Hydromorphone HCl 0.5 mg 10/12/24 06:17 Hydromorphone 0.5 Mg/0.5 Ml Syringe IV Q4H PRN PRN Pain Score 6-10 Piperacillin Sod/Tazobactam 50 mls @ 12.5 mls/hr 10/12/24 14:00 10/12/24 13:20 Sod 3.375 gm/ Sodium Chloride IV 12.5 mls/hr Q8 BECCA Administration Pantoprazole Sodium 40 mg/ 110 mls @ 330 mls/hr 10/12/24 10:00 10/12/24 10:33 Sodium Chloride IV Infused BID BECCA Infusion Sodium Chloride 100 mls @ 15 mls/hr 10/12/24 06:22 IV .Q6H40M PRN Saline Flush Sodium Chloride 100 mls @ 15 mls/hr 10/12/24 06:22 IV .Q6H40M PRN Additional IVPB Infusion Ondansetron HCl 4 mg 10/12/24 06:17 Ondansetron 4 Mg/2 Ml Vial IV Q4H PRN PRN NAUSEA/VOMITING Sodium Chloride 10 - 40 ml 10/12/24 06:22 0.9% Saline Lock 10 Ml Syringe IV UD PRN SALINE FLUSH PFSH Medical History HTN (hypertension) Depression Diabetes mellitus type 2, diet-controlled Hypothyroidism Rheumatoid arthritis Home Medications ?Medication ?Instructions ?Recorded ?Last Taken ?Type gabapentin 400 mg capsule 800 mg PO QHS pain 10/05/15 Unknown History levothyroxine 125 mcg tablet 125 mcg PO DAILY thyroid 10/05/15 09/09/18 06:30 History aspirin 81 mg tablet,delayed 81 mg PO DAILY 10/16/22 U nknown History release (Adult Low Dose Aspirin) cholecalciferol (vitamin D3) 25 25 mcg PO DAILY Unknown History mcg (1,000 unit) capsule albuterol sulfate 90 mcg/actuation 2 inh inhalation Q4 H PRN shortness 10/11/24 Unknown History aerosol inhaler of breath or wheezing ascorbic acid (vitamin C) 1,000 mg 1 g PO DAILY Unknown History capsule bupropion HCl 150 mg 24 hr tablet, 150 mg PO DAILY 06/25 Unknown History extended release ferrous sulfate 325 mg (65 mg 325 mg PO QODAY 10/11/24 Unknown History iron) tablet (FeroSul) fluticasone fur. 100 mcg-umeclid 1 inh inhalation HUNTER Y 10/11/24 Unknown History 62.5 mcg-vilant 25 mcg inhalat.powder (Trelegy Ellipta) isosorbide mononitrate 60 mg 60 mg PO DAILY 10/11/24 U nknown History tablet,extended release 24 hr losartan 100 mg tablet 100 mg PO DAILY 10/11/24 Unk nown History meclizine 12.5 mg tablet 12.5 mg PO DAILY PRN dizzine ss 10/11/24 Unknown History omega-3 fatty acids 1,000 mg 668 mg PO DAILY 10/11/24 Unknown History capsule ondansetron 4 mg disintegrating 4 mg PO Q6H PRN nausea and vomiting 10/11/24 Unknown History tablet potassium chloride 10 mEq 10 meq PO BID 10/11/24 Unkno wn History tablet,extended release(part/cryst) ropinirole 1 mg tablet 2 mg PO DAILY 10/11/24 Unkno wn History rosuvastatin 20 mg tablet 20 mg PO QHS 10/11/24 Unknow n History torsemide 20 mg tablet 20 mg PO DAILY 10/11/24 Unkn own History Allergy/AdvReac Type Severity Reaction Status Date / Time morphine Allergy Intermediate Rash Verified 10/11/24 21:48 lovastatin Allergy Itching Verified 10/11/24 21:48 paroxetine HCl (From Paxil) Allergy Hives, Verified 10/11/24 21:48 Itching Sulfa (Sulfonamide Allergy Itching Verified 10/11/24 21:48 Antibiotics) Surgical History History of right shoulder replacement History of left knee replacement History of carpal tunnel release H/O tubal ligation Social History Smoking Status: Never smoker Review of Systems (Anesthesia) ROS Narrative System reviewed and no additional complaints, except as documented.
--- NOTE | 2024-10-12 17:09 | EX.PCM.CON.G ---
HPI Consult Data Date of Consult: 10/12/24 HPI Narrative Reason for Consultation: GI bleed HPI Narrative: LUMA JOYCE, is [id number] female past medical history hypertension, diabetes, hypothyroidism, depression who presented to the emergency department the chief complaint of altered mental status and unresponsive. According to the staff the patient when EMS arrived was hypotensive with a systolic in the 70s. They started IV fluids on her. According to the nurse at bedside when they arrived after some fluids were given her blood pressure improved and she became much more alert and oriented. According the patient she states that for the past few days she has noted that she has had diarrhea and blood in her stool. She denies any blood thinning medications. Patient denies any sick contacts. Patient states that her abdomen is sore and had 1 episode of vomiting. Ms. Joyce reports she has not felt good for the past ~2-3 days and she has noted diarrhea and blood in her stools. She denies taking any blood thinning medications other than a baby aspirin daily. She denies recent sick contacts, recent travel or recent antibiotic exposure. She admits to generalized abdominal pain that is cramping in nature and moderate with nausea and 1 episode of vomiting with bilious emesis yesterday but has not vomited since that time. She denies associated fever, chills, changes in vision, chest pain, palpitations, heart racing, shortness of breath, cough, dysuria, hematuria, headache, focal motor weakness, paresthesias, back pain or rash. 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 [facility] Medical History HTN (hypertension) Depression Diabetes mellitus type 2, diet-controlled Hypothyroidism Rheumatoid arthritis Home Medications ?Medication ?Instructions ?Recorded ?Last Taken ?Type gabapentin 400 mg capsule 800 mg PO QHS pain 10/05/15 Unknown History levothyroxine 125 mcg tablet 125 mcg PO DAILY thyroid 10/05/15 09/09/18 06:30 History aspirin 81 mg tablet,delayed 81 mg PO DAILY 10/16/22 Unknown History release (Adult Low Dose Aspirin) cholecalciferol (vitamin D3) 25 25 mcg PO DAILY 10/16/22 Unknown History mcg (1,000 unit) capsule albuterol sulfate 90 mcg/actuation 2 inh inhalation Q4H PRN shortness 10/11/24 Unknown History aerosol inhaler of breath or wheezing ascorbic acid (vitamin C) 1,000 mg 1 g PO DAILY 10/11/24 Unknown History capsule bupropion HCl 150 mg 24 hr tablet, 150 mg PO DAILY 10/11/24 Unknown History extended release ferrous sulfate 325 mg (65 mg 325 mg PO QODAY 10/11/24 Unknown History iron) tablet (FeroSul) fluticasone fur. 100 mcg-umeclid 1 inh inhalation DAILY 10/11/24 Unknown History 62.5 mcg-vilant 25 mcg inhalat.powder (Trelegy Ellipta) isosorbide mononitrate 60 mg 60 mg PO DAILY 10/11/24 Unknown History tablet,extended release 24 hr losartan 100 mg tablet 100 mg PO DAILY 10/11/24 Unknown History meclizine 12.5 mg tablet 12.5 mg PO DAILY PRN dizziness 10/11/24 Unknown History omega-3 fatty acids 1,000 mg 668 mg PO DAILY 10/11/24 Unknown History capsule ondansetron 4 mg disintegrating 4 mg PO Q6H PRN nausea and vomiting 10/11/24 Unknown History tablet potassium chloride 10 mEq 10 meq PO BID 10/11/24 Unknown History tablet,extended release(part/cryst) ropinirole 1 mg tablet 2 mg PO DAILY 10/11/24 Unknown History rosuvastatin 20 mg tablet 20 mg PO QHS 10/11/24 Unknown History torsemide 20 mg tablet 20 mg PO DAILY 10/11/24 Unknown History Allergy/AdvReac Type Severity Reaction Status Date / Time morphine Allergy Intermediate Rash Verified 10/11/24 21:48 lovastatin Allergy Itching Verified 10/11/24 21:48 paroxetine HCl (From Paxil) Allergy Hives, Verified 10/11/24 21:48 Itching Sulfa (Sulfonamide Allergy Itching Verified 10/11/24 21:48 Antibiotics) Surgical History History of right shoulder replacement History of left knee replacement History of carpal tunnel release H/O tubal ligation Social History Smoking Status: Never smoker ROS Constitutional Constitutional: Denies fatigue, fever(s), poor appetite, weight gain or weight loss Gastrointestinal Gastrointestinal: Denies belching, bloating, change in bowel habits, change in stool character, chewing difficulty, coffee ground emesis, constipation, cramping, diarrhea, dyspepsia, dysphagia, early satiety, excessive flatus, fecal incontinence, heartburn, hematemesis, hematochezia, hemorrhoids, loose stools, melena, nausea, odynophagia, rectal bleeding, tenesmus, vomiting or weight changes Physical Exam Const alert, oriented x3, no apparent distress and healthy appearing General Appearance: cooperative GI normal to inspection, nondistended, normoactive bowel sounds, soft to palpation, non-tender and non-distended Percussion: normal to percussion Rectal Exam: deferred Lab / Micro Data 10/12/24 10:00 10/12/24 10:00 Labs: Laboratory Results - last 24 hr 10/11/24 22:23: WBC 16.5 H, RBC 3.91 L, Hgb 11.9 L, Hct 36.3 L, MCV 92.8, MCH 30.4, MCHC 32.8, RDW Std Deviation 49.8 H, RDW Coeff of Micky 14.6, Plt Count 195, MPV 10.5, Immature Gran % (Auto) 0.700, Neut % (Auto) 86.2 H, Lymph % (Auto) 6.8 L, Routt % (Auto) 5.5, Eos % (Auto) 0.6, Baso % (Auto) 0.2, Absolute Neuts (auto) 14.2 H, Absolute Lymphs (auto) 1.12, Nucleated RBC % 0, PT 15.3 H, INR 1.2, APTT 39.3 H, Sodium 139, Potassium 4.1, Chloride 106, Carbon Dioxide 27.0, Anion Gap 7, BUN 36 H, Creatinine 1.69 H, Estim Creat Clear Calc 26.84, Est GFR (MDRD) Af Amer 37 L, Est GFR (MDRD) Non-Af 31 L, BUN/Creatinine Ratio 21.3 H, Glucose 148 H, Lactic Acid 2.3 H*, Calcium 9.1, Iron 17 L, TIBC 330, Iron Saturation 5.2 L, Ferritin 62, Total Bilirubin 1.10 H, AST 25, ALT 26, Alkaline Phosphatase 47, Troponin I High Sens 16, B-Natriuretic Peptide 264.2 H, Total Protein 6.3 L, Albumin 3.1 L, Globulin 3.2, Albumin/Globulin Ratio 1.0, TSH 3.430 10/11/24 22:35: Urine Color Yellow, Urine Clarity Clear, Urine pH 5.0, Ur Specific [place] 1.015, Urine Protein 30 H, Urine Glucose (UA) Normal, Urine Ketones 5 H, Urine Occult Blood 10 H, Urine Nitrite Negative, Urine Bilirubin 1 H, Urine Urobilinogen 1 H, Ur Leukocyte Esterase 25 H, Urine RBC 0 SEEN, Urine WBC 0 SEEN, Ur Squamous Epith Cells 0 SEEN, Urine Bacteria 0 SEEN, Hyaline Casts 0-5 SEEN, Fine Granular Casts 0 SEEN, Urine Mucus 0 SEEN 10/12/24 03:40: Hemoglobin A1c 5.3, Lactic Acid 1.3 10/12/24 10:00: WBC 12.5 H, RBC 3.67 L, Hgb 11.0 L, Hct 34.3 L, MCV 93.5, MCH 30.0, MCHC 32.1, RDW Std Deviation 49.9 H, RDW Coeff of Micky 14.6, Plt Count 168, MPV 11.0, Immature Gran % (Auto) 0.600, Neut % (Auto) 77.5 H, Lymph % (Auto) 13.9 L, Routt % (Auto) 5.7, Eos % (Auto) 2.1, Baso % (Auto) 0.2, Absolute Neuts (auto) 9.7 H, Absolute Lymphs (auto) 1.74, Nucleated RBC % 0, Sodium 140, Potassium 3.8, Chloride 112 H, Carbon Dioxide 24.0, Anion Gap 4 L, BUN 27 H, Creatinine 1.27 H, Estim Creat Clear Calc 31.34, Est GFR (MDRD) Af Amer 52 L, Est GFR (MDRD) Non-Af 43 L, BUN/Creatinine Ratio 21.3 H, Glucose 86, Calcium 8.5 Micro: Microbiology 10/11/24 23:36 Stool Stool Occult Blood (JONNY) - Final Occult Blood Positive 10/11/24 22:25 Mucosa - Nose SARS-CoV-2, Influenza & RSV (PCR) - Final Imaging Radiology Impression Abdomen/Pelvis CTA 10/11/24 22:05 IMPRESSION: 1. Circumferential wall thickening of the rectum, sigmoid colon, descending colon, and distal transverse colon with pericolonic stranding likely related to an acute colitis on an infectious, inflammatory, or ischemic basis. 2. No evidence of abdominal aortic aneurysm or dissection. No active hemorrhage is identified. 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 There is atherosclerotic calcification of the origin of the right renal artery with moderate stenosis. 3. Colonic diverticulosis without diverticulitis. 4. Large hiatal hernia. 5. Additional findings as above. One or more dose reduction techniques were used (e.g., Automated exposure control, adjustment of the mA and/or kV according to patient size, use of iterative reconstruction technique). Reading Location: [facility] Chest X-Ray 10/11/24 22:05 IMPRESSION: 1. No acute cardiopulmonary process. 2. Mild cardiomegaly. 3. Large hiatal hernia. Reading Location: [facility] Assessment & Plan Assessment/Plan (1) Sepsis: QUALIFIERS: Sepsis type: sepsis due to unspecified organism Sepsis acute organ dysfunction status: without acute organ dysfunction Qualified Code(s): A41.9 - Sepsis, unspecified organism (2) Colitis: (3) Bloody diarrhea: (4) Bright red blood per rectum: (5) Adverse drug reaction: QUALIFIERS: Encounter type: initial encounter Qualified Code(s): T50.905A - Adverse effect of unspecified drugs, medicaments and biological substances, initial encounter (6) Lactic acidosis: (7) Leukocytosis: QUALIFIERS: Leukocytosis type: unspecified Qualified Code(s): D72.829 - Elevated white blood cell count, unspecified (8) NABILA (acute kidney injury): (9) Acute blood loss anemia (ABLA): (10) Syncope and collapse: PLAN: Plan 87-year-old presents with abdominal pain followed by nausea vomiting and diarrhea which turned into bloody Diarrhea. CT evidence of circumferential wall thickening of the rectum, sigmoid colon, descending colon and transverse colon with pericolonic stranding likely related to acute colitis on an infectious/inflammatory or ischemic. Agree with continuing antibiotics. Stool studies have been negative thus far for infectious etiology such as Shigella, Salmonella, Yersinia, E. coli. She should undergo an upper endoscopy to rule out upper GI bleed with rapid transit and flexible sigmoidoscopy with biopsies to confirm ischemia and also to grade the length and severity of injury to see if that she is likely to have stricture or sequela from severe colitis. Unless on a differential diagnosis his first episode of ulcerative colitis. She was explained alternatives, risk and benefits include understanding bleeding, infection, sepsis, perforation, need for return to . She will have an ASA of 3. Charges/Coding Visit Charges Inpatient E&M: 63883 Init Hosp L3
--- NOTE | 2024-10-12 17:55 | OP.EGD_ITS ---
Patient Name: Mercedes Joyce Procedure Date: 10/12/2024 5:18 PM Date of : 1940 Age: 84 Procedure: Upper GI endoscopy Indications: Hematemesis Providers: Carmelo Ridley DO Medicines: Monitored Anesthesia Care Patient Profile: This is an 84 year old female. Refer to note in patient chart for documentation of history and physical. Patient has symptoms of acute epigastric abdominal pain. Complications: No immediate complications. Procedure: Pre-Anesthesia Assessment: - Prior to the procedure, a History and Physical was performed, and patient medications and allergies were reviewed. The patient is competent. The risks and benefits of the procedure and the sedation options and risks were discussed with the patient. All questions were answered and informed consent was obtained. Patient identification and proposed procedure were verified by the physician in the pre-procedure area. Mental Status Examination: alert and oriented. Airway Examination: normal oropharyngeal airway and neck mobility. Respiratory Examination: clear to auscultation. CV Examination: normal. Prophylactic Antibiotics: The patient does not require prophylactic antibiotics. Prior Anticoagulants: The patient has taken Coumadin (warfarin), last dose was 12 days prior to procedure. ASA Grade Assessment: II - A patient with mild systemic disease. After reviewing the risks and benefits, the patient was deemed in satisfactory condition to undergo the procedure. The anesthesia plan was to use monitored anesthesia care (MAC). Immediately prior to administration of medications, the patient was re-assessed for adequacy to receive sedatives. The heart rate, respiratory rate, oxygen saturations, blood pressure, adequacy of pulmonary ventilation, and response to care were monitored throughout the procedure. The physical status of the patient was re-assessed after the procedure. After obtaining informed consent, the endoscope was passed under direct vision. Throughout the procedure, the patient's blood pressure, pulse, and oxygen saturations were monitored continuously. The pediatric colonoscope was introduced through the mouth, and advanced to the second part of duodenum. The gastroscope was introduced through the mouth, and advanced to the second part of duodenum. The upper GI endoscopy was accomplished without difficulty. The patient tolerated the procedure well. Scope In: 5:34:02 PM Scope Out: 5:40:42 PM Total Procedure Duration Time 0 hours 6 minutes 40 seconds Findings: The examined esophagus was normal. A large hiatal hernia was present. Many non-bleeding linear gastric ulcers with no stigmata of bleeding were found in the gastric body. The largest lesion was 4 mm in largest dimension. Biopsies were taken with a cold forceps for histology. Verification of patient identification for the specimen was done. Estimated blood loss was minimal. Biopsies were taken with a cold forceps for Helicobacter pylori testing. Verification of patient identification for the specimen was done. Estimated blood loss was minimal. Few non-bleeding cratered duodenal ulcers with no stigmata of bleeding were found in the duodenal bulb. The largest lesion was 4 mm in largest dimension. Impression: - Normal esophagus. - Large hiatal hernia. - Non-bleeding gastric ulcers with no stigmata of bleeding. Biopsied. - Non-bleeding duodenal ulcers with no stigmata of bleeding. Recommendation: - [facility]. - Full liquid diet today. - Continue present medications. - Await pathology results. - Repeat upper endoscopy in 2 months for surveillance. Procedure Code(s): --- Professional --- 08253, Esophagogastroduodenoscopy, flexible, transoral; with biopsy, single or multiple CPT copyright 2021 [employer]. All rights reserved. The codes documented in this report are preliminary and upon remote coders review may be revised to meet current compliance requirements. Carmelo Ridley DO 10/12/2024 5:55:17 PM This report has been signed electronically. Number of Addenda: 0 Note Initiated On: 10/12/2024 5:18 PM
--- NOTE | 2024-10-12 17:58 | PCM.POST.ANE ---
Anesthesia: Postop Eval I Current Vital Signs Temperature: 98.4 F Pulse Rate: 69 Blood Pressure: 120/90 Respiratory Rate: 16 Pulse Ox: 98 Oxygen Delivery Method: Room Air Assessment Airway patent: Yes Spontaneous unlabored respirations: Yes Mental status: Awake and Calm nausea: No Vomiting: No Anesthesia Complication: No Fluid Hydration Crystalloid volume administer (ml): 10 Total IV fluid infused: 10 Progress Note Anesthesia document: Postop Eval 1 completed: Yes
--- NOTE | 2024-10-12 17:59 | OP.FLEXSIG_ITS ---
Patient Name: Mercedes Joyce Procedure Date: 10/12/2024 5:40 PM Date of : 1940 Age: 84 Procedure: Flexible Sigmoidoscopy Indications: Hematochezia Providers: Carmelo Ridley DO Medicines: Monitored Anesthesia Care Patient Profile: This is an 84 year old female. Refer to note in patient chart for documentation of history and physical. Patient has symptoms of acute epigastric abdominal pain. Refer to note in patient chart for documentation of history and physical. Last Colonoscopy: date unknown. Unable to locate last colonoscopy report. Complications: No immediate complications. Procedure: Pre-Anesthesia Assessment: - Prior to the procedure, a History and Physical was performed, and patient medications and allergies were reviewed. The patient is competent. The risks and benefits of the procedure and the sedation options and risks were discussed with the patient. All questions were answered and informed consent was obtained. Patient identification and proposed procedure were verified by the physician in the pre-procedure area. Mental Status Examination: alert and oriented. Airway Examination: normal oropharyngeal airway and neck mobility. Respiratory Examination: clear to auscultation. CV Examination: normal. Prophylactic Antibiotics: The patient does not require prophylactic antibiotics. Prior Anticoagulants: The patient has taken Coumadin (warfarin), last dose was 12 days prior to procedure. ASA Grade Assessment: II - A patient with mild systemic disease. After reviewing the risks and benefits, the patient was deemed in satisfactory condition to undergo the procedure. The anesthesia plan was to use monitored anesthesia care (MAC). Immediately prior to administration of medications, the patient was re-assessed for adequacy to receive sedatives. The heart rate, respiratory rate, oxygen saturations, blood pressure, adequacy of pulmonary ventilation, and response to care were monitored throughout the procedure. The physical status of the patient was re-assessed after the procedure. After obtaining informed consent, the endoscope was passed under direct vision. Throughout the procedure, the patient's blood pressure, pulse, and oxygen saturations were monitored continuously. The pediatric colonoscope was introduced through the anus and advanced to the splenic flexure. The Colonoscope was introduced through the anus and advanced to the left transverse colon. The flexible sigmoidoscopy was accomplished without difficulty. The patient tolerated the procedure well. No bowel preparation was given prior to the procedure. The quality of visualization was adequate. Scope In: 5:45:08 PM Scope Out: 5:47:27 PM Total Procedure Duration Time 0 hours 2 minutes 19 seconds Findings: The perianal and digital rectal examinations were normal. Diffuse moderate inflammation characterized by erythema, friability, granularity, linear erosions and confluent ulcerations was found in the rectum, in the recto-sigmoid colon, in the sigmoid colon, in the descending colon, at the splenic flexure and in the transverse colon. Biopsies were taken with a cold forceps for histology. Verification of patient identification for the specimen was done. Estimated blood loss was minimal. A few small-mouthed diverticula were found in the recto-sigmoid colon, sigmoid colon and descending colon. Impression: - No specimens collected. Recommendation: - Use original regular Metamucil one teaspoon PO daily. Procedure Code(s): --- Professional --- 17980, Sigmoidoscopy, flexible; with biopsy, single or multiple CPT copyright 2021 [employer]. All rights reserved. The codes documented in this report are preliminary and upon chef kitchen manager review may be revised to meet current compliance requirements. Carmelo Ridley DO 10/12/2024 5:59:00 PM This report has been signed electronically. Number of Addenda: 0 Note Initiated On: 10/12/2024 5:40 PM
--- NOTE | 2024-10-12 18:09 | PCM.PN.BLA ---
Progress Note Follow-up in office: 2 weeks Okay to restart [3 days on 10/15/2024] New GI related medications for discharge: [Protonix 40 mg twice daily] Follow-up procedures needed: [Repeat upper endoscopy and flexible sigmoidoscopy to confirm ulcers are healed and ischemic colitis is resolved.] Visit Charges Inpatient E&M: 67877 Subs Hosp L2
--- NOTE | 2024-10-12 18:49 | PCM.POSTANE2 ---
Anesthesia Postop Eval I Sum Postop Eval Completion status Anesthesia document: Postop Eval 1 completed: Yes Anesthesia Postop Eval I Summary Anesthesia Postop Eval I Summary: Anesthesia Postop Eval I: Assessment Summary Airway patent Yes 10/12/24 18:00 Spontaneous unlabored Yes 10/12/24 18:00 respirations Mental status Awake,Calm 10/12/24 18:00 nausea No 10/12/24 18:00 Vomiting No 10/12/24 18:00 Anesthesia Postop Eval I: Fluid Summary Crystalloid volume administer 10 10/12/24 18:00 (ml) Colloids volume administered ( ml) Blood Product volume administered (ml) Total IV fluid infused 10 10/12/24 18:00 Anesthesia Postop Eval I: Summary Notes Anesthesia Complication No 10/12/24 18:00 Anesthesia Complication Comment: Post-operative progress note Anesthesia: Postop Eval II Evaluation Mental status: Awake and Calm Pain Level: 0 nausea: No Vomiting: No Complications Anesthesia Complication: No
[2024-10-12] MEDS: Budesonide Respules 0.5 MG/2 ML AMPUL.NEB. INHALATION (19:19)
[2024-10-13 02:00] VITALS: BP 134/76; PULSE 63; RESP 19; TEMP 36.6; O2SAT 98
[2024-10-13] MEDS: Piperacil/Tazobactam 3.375 GM in 0.9% Normal Saline (50mL MB+) 50 ML IV ×2 (05:43→14:43)
[2024-10-13 06:00] VITALS: BMI 35.2
--- NOTE | 2024-10-13 07:01 | PN.HOSP_ITS ---
Reason for Visit Reason for Visit: Diagnoses Sepsis, unspecified organism (10/12/24) Acute posthemorrhagic anemia (10/12/24) Elevated white blood cell count, unspecified (10/12/24) Acidosis, unspecified (10/12/24) Noninfective gastroenteritis and colitis, unspecified (10/12/24) Hemorrhage of anus and rectum (10/12/24) Acute kidney failure, unspecified (10/12/24) Diarrhea, unspecified (10/12/24) Syncope and collapse (10/12/24) Adverse effect of unspecified drugs, medicaments and biological substances, initial encounter (10/12/24) Subjective Subjective Still with left sided abdominal pain, but improving. No further bleeding. Objective Data Objective Data Vital Signs: Vital Signs Temp Pulse Resp BP Pulse Ox O2 Del Method 36.6 C 63 19 H 134/76 H 98 Room Air 10/13/24 02:00 10/13/24 02:00 10/13/24 02:00 10/13/24 02:00 10/13/24 02:00 10/13/24 03:04 Oxygen Delivery Method Room Air Weight: 81.4 kg Body Mass Index (BMI) 35.2 Intake & Output: Intake and Output for Last 24 Hours 10/11/24 10/12/24 10/13/24 23:59 23:59 23:59 Intake Total 1700 / 1700 3430.00 / 3430.00 50 / 50 Output Total 425 / 425 Balance 1700 / 1700 3005.00 / 3005.00 50 / 50 Lab / Micro Data 10/13/24 07:38 10/13/24 07:38 Labs: Laboratory Results - last 24 hr 10/12/24 03:40: Hemoglobin A1c 5.3 10/12/24 10:00: WBC 12.5 H, RBC 3.67 L, Hgb 11.0 L, Hct 34.3 L, MCV 93.5, MCH 30.0, MCHC 32.1, RDW Std Deviation 49.9 H, RDW Coeff of Micky 14.6, Plt Count 168, MPV 11.0, Immature Gran % (Auto) 0.600, Neut % (Auto) 77.5 H, Lymph % (Auto) 13.9 L, [place] % (Auto) 5.7, Eos % (Auto) 2.1, Baso % (Auto) 0.2, Absolute Neuts (auto) 9.7 H, Absolute Lymphs (auto) 1.74, Nucleated RBC % 0, Sodium 140, Potassium 3.8, Chloride 112 H, Carbon Dioxide 24.0, Anion Gap 4 L, BUN 27 H, C reatinine 1.27 H, Estim Creat Clear Calc 31.34, Est GFR (MDRD) Af Amer 52 L, Est GFR (MDRD) Non-Af 43 L, BUN/Creatinine Ratio 21.3 H, Glucose 86, Calcium 8.5 Micro: Microbiology 10/11/24 23:36 Stool Stool Occult Blood (JONNY) - Final Occult Blood Positive 10/11/24 22:25 Mucosa - Nose SARS-CoV-2, Influenza & RSV (PCR) - Final Physical Exam Const alert and no apparent distress HEENT head/scalp atraumatic and moist oral mucous membranes Resp normal respiratory effort, no retractions, no use of accessory muscles and clear to auscultation bilaterally Cardio regular rate, regular rhythm, S1 normal heart sound and S2 normal heart sound GI GI Narrative: left sided abdominal pain without rebound. Assessment & Plan Assessment/Plan (1) Sepsis: QUALIFIERS: Sepsis acute organ dysfunction status: without acute organ dysfunction Sepsis type: sepsis due to unspecified organism Qualified Code(s): A41.9 - Sepsis, unspecified organism PLAN: POA. See H+P for criteria 2/2 colitis Follow up cultures (2) Colitis: PLAN: Infectious v ischemic. on pip/tazo and metronidazole (3) Bloody diarrhea: PLAN: 2/2 colitis. Cannot qualify ABLA at this time, since last Hg in our system is from 2019. Will monitor. No need to transfuse unless Hg 7 or less. Continue to hold ASA. EGD showed non-bleeding gastic and duodenal ulcers. Sigmoidoscopy showed diffuse moderate inflammation in the rectu, rectosigmoid colon and the sigmoid colon. Biopsies performed. (4) NABILA (acute kidney injury): PLAN: Resolved. Likely 2/2 dehydration. (5) Syncope and collapse: PLAN: likely vasovagal from colitis monitor. echo shows an EF 75%. Severe biatrial dilation. PLAN: Plan Chronic conditions: * Essential Hypertension; on losartan and torsemide - Held 2/2 NABILA/CKD * Hyperlipidemia; rosuvastatin held * Hypothyroidism; on levothyroxine 125 at home. Notified by pharmacy that they do not do IV daily dosing of levothyroxine. Instead, they wait 7 days and then do a every 3-day dosing of the larger dose of levothyroxine so as not to waste levothyroxine as it is expensive. With that being said, I do not anticipate the patient is going to be n.p.o. for 7 days and since that is the policy will resume oral medications when we are able. * DM-2; diet controlled currently not on pharmacologic treatment - Check HgbA1c this admission to objectively assess quality of diabetic control. * History of COPD; on as needed albuterol and daily Trelegy Ellipta previously followed by Dr. Chang Galvez of pulmonology - Maintain current regimen with no signs of acute flare at this time. * Chronic KLEBER; on ferrous sulfate daily. Iron low with abnormally normal ferritin. Will given dose of IV iron. DVT prophylaxis - SCD's Charges/Coding Visit Charges Inpatient E&M: 54374 Subs Hosp L2
[2024-10-13] MEDS: Budesonide Respules 0.5 MG/2 ML AMPUL.NEB. INHALATION (07:37)
[2024-10-13] MEDS: Ipratropium/Albuterol Sulfate 3 ML AMPUL.NEB INHALATION (07:37)
[2024-10-13 07:38] VITALS: PULSE 65; RESP 18; O2SAT 98
--- NOTE | 2024-10-13 07:49 | PCM.PN.INT ---
Assessment & Plan Assessment/Plan (1) NABILA (acute kidney injury): (2) Bloody diarrhea: PLAN: Plan RECOMMENDATIONS: 1. Antibiotics can be discontinued from my perspective. 2. Continue PPI therapy with outpatient GI follow-up recommended. 3. Continue scheduled bronchodilators. 4. Encourage incentive spirometer use and mobilize patient as tolerated. 5. Will sign off from a pulmonary/critical care perspective. Please call with any questions. IMPRESSIONS: 1. Bloody diarrhea with hypotension Clinical concern for acute colitis, potentially infectious versus ischemic in etiology. However, the patient has not demonstrated any further episodes of diarrhea since her admission. She has responded appropriately to IV fluid resuscitation. The patient was evaluated by gastroenterology and underwent sigmoidoscopy which demonstrated diffuse inflammation and ulcerations in the rectum, sigmoid colon, descending colon and transverse colon. It was recommended that the patient be maintained on Protonix twice daily with outpatient GI follow-up. The patient remains hemodynamically stable this morning. 2. Acute kidney injury Resolved. Most likely prerenal in etiology in the setting of hypovolemia. The patient has been adequately volume resuscitated and remains hemodynamically stable. Creatinine has improved with volume expansion. Continue to monitor urine output. No current indication for renal replacement therapy. 3. History of COPD/hypertension/hyperlipidemia/hypothyroidism Complicates care, management, recovery and prognosis. Continue to hold home antihypertensives. Continue scheduled bronchodilators as ordered. This note was generated with [employer] dictation software. It may contain incorrect words, spelling, and punctuation that were not noted in checking the note before signing. Subjective Subjective The patient was seen and examined at the bedside this morning. Events from the last 24 hours have been reviewed. The patient is currently afebrile, hemodynamically stable and maintaining appropriate oxygen saturations on room air. White blood cell count is normal this morning with a hemoglobin of 11.2 g/dL and platelet count of 178,000. Creatinine is normal at 1.1. The patient underwent successful flexible sigmoidoscopy yesterday, which demonstrated diffuse inflammation and ulcerations in the rectum, sigmoid colon, descending colon and transverse colon. It was recommended that the patient be maintained on Protonix twice daily with outpatient GI follow-up. Objective Data Objective Data The patient's most recent lab work, culture data and imaging studies have all been personally reviewed. Blood and urine cultures have not demonstrated any growth to date. Surface echocardiogram demonstrated normal LV size and function with an ejection fraction of 75% and pulmonary artery systolic pressure of 40 mmHg. Vital Signs: Vital Signs Temp Pulse Resp BP Pulse Ox O2 Del Method 97.8 F 65 18 134/76 H 98 Room Air 10/13/24 02:00 10/13/24 07:38 10/13/24 07:38 10/13/24 02:00 10/13/24 07:38 10/13/24 07:38 Oxygen Delivery Method Room Air Weight: 179 lb 7.3 oz Body Mass Index (BMI) 35.2 Intake & Output: Intake and Output for Last 24 Hours 10/11/24 10/12/24 10/13/24 23:59 23:59 23:59 Intake Total 1700 / 1700 3430.00 / 3430.00 50 / 50 Output Total 425 / 425 Balance 1700 / 1700 3005.00 / 3005.00 50 Lab / Micro Data Attestation: I reviewed the patient's lab results. 10/13/24 07:38 10/13/24 07:38 Labs: Laboratory Results - last 24 hr 10/12/24 03:40: Hemoglobin A1c 5.3 10/12/24 10:00: WBC 12.5 H, RBC 3.67 L, Hgb 11.0 L, Hct 34.3 L, MCV 93.5, MCH 30.0, MCHC 32.1, RDW Std Deviation 49.9 H, RDW Coeff of Micky 14.6, Plt Count 168, MPV 11.0, Immature Gran % (Auto) 0.600, Neut % (Auto) 77.5 H, Lymph % (Auto) 13.9 L, [place] % (Auto) 5.7, Eos % (Auto) 2.1, Baso % (Auto) 0.2, Absolute Neuts (auto) 9.7 H, Absolute Lymphs (auto) 1.74, Nucleated RBC % 0, Sodium 140, Potassium 3.8, Chloride 112 H, Carbon Dioxide 24.0, Anion Gap 4 L, BUN 27 H, Creatinine 1.27 H, Estim Creat Clear Calc 31.34, Est GFR (MDRD) Af Amer 52 L, Est GFR (MDRD) Non-Af 43 L, BUN/Creatinine Ratio 21.3 H, Glucose 86, Calcium 8.5 Micro: Microbiology 02/10/25 23:36 Stool Stool Occult Blood (JONNY) - Final Occult Blood Positive 10/11/24 22:25 Mucosa - Nose SARS-CoV-2, Influenza & RSV (PCR) - Final Physical Exam Const alert, oriented x3 and no apparent distress General Appearance: cooperative HEENT normocephalic, head/scalp atraumatic and moist oral mucous membranes Eyes PERRL, EOMs intact bilaterally and conjunctivae normal Neck supple General: trachea midline Chest inspection of chest normal Resp normal respiratory effort Auscultation: Negative for rales, rhonchi or wheezes Cardio regular rate and regular rhythm GI soft to palpation and non-tender Extremity no clubbing, cyanosis or edema Skin no rashes or lesions noted Neuro CN's II-XII intact bilaterally, moves all extremities and no focal motor deficits Psych cooperative and affect normal Charges/Coding Visit Charges Inpatient E&M: 98430 Subs Hosp L2
[2024-10-13 07:55] LABS: Absolute Lymphocyte Count 1.48 X10^3/uL (0.83-4.51); Basophil# 0.05 X10^3/uL; Basophil% 0.6 % (0-1); Eosinophil# 0.47 X10^3/uL; Eosinophils% 5.5 % (0-5); Hematocrit 37.3 % (37-47); Hemoglobin 11.2 g/dL (12.0-15.0); Lymphocyte # 1.48 X10^3/ul (0.83-4.51); Lymphocyte % 17.4 % (19-41); Mean Corpuscular Hgb 29.3 pg (27.0-32.0); Mean Corpuscular Volume 97.6 fL (81-99); Monocyte# 0.49 X10^3/uL; Monocyte% 5.8 % (0-10); NRBC Flagged by Analyzer 0 % (0-5); Neutrophil # 5.97 X10^3/uL (2.7-7.7); Neutrophil % 70.2 % (47-70); Platelet Count 178 K/mm3 (150-450); RBC Distribution Width CV 14.6 % (11.6-14.6); RBC Distribution Width SD 52.3 fl (35.1-43.9); Red Blood Count 3.82 M/mm3 (4.2-5.4); White Blood Count 8.5 K/mm3 (4.4-11.0)
[2024-10-13 08:00] VITALS: BP 127/56; PULSE 61; RESP 16; TEMP 36.4; O2SAT 94
[2024-10-13 08:20] LABS: Anion Gap 3 (5-15); BUN 18 mg/dL (7-18); BUN/Creat Ratio 16.2 RATIO (10-20); Calcium,Total 8.7 mg/dL (8.5-10.1); Chloride 114 mmol/L (98-107); Creatinine, Serum 1.11 mg/dL (0.55-1.02); EST Glomerular Filtration Rate 50 mL/min (>60); Est Glom Filt Rate - Afr Amer 60 mL/min (>60); Estimated Creatinine Clearance 36.29 ml/min; Glucose 82 mg/dL (74-106); Potassium 3.8 mmol/L (3.5-5.1); Sodium Level 142 mmol/L (136-145)
[2024-10-13] MEDS: Pramipexole Di-HCl 1 MG Tablet PO (09:08)
[2024-10-13] MEDS: Pantoprazole Sodium 40 MG in 0.9% Normal Saline (100mL MB+) 100 ML 330 MG IV (09:09)
[2024-10-13 13:50] VITALS: PULSE 66; RESP 16
[2024-10-13 14:00] VITALS: BP 123/66; PULSE 60; RESP 18; TEMP 36.4; O2SAT 100
[2024-10-13] MEDS: 0.9% Saline Lock 10 ML Syringe IV (14:43)
--- NOTE | 2024-10-13 14:57 | CASEMGMT ---
Pt worked with therapy today, see note. RN CM to pt room at this time to discuss DC planning. Pt RN @ bedside. Pt sitting up in the chair and is A&Ox4 and is calm. Pt states that she feels safe returning home with the help of her son once medically ready and denies the need for HH, OP Tx, or CCN. Pt denies further concerns at this time.
--- NOTE | 2024-10-13 17:16 | DS.PCM_ITS ---
Providers Date of Admission: 10/12/24 Primary Care Physician: EFRAIN Ramon Consultations 10/12/24 06:17 Consult: Gastroenterology Routine Consulting Provider: [facility] Reason for Consult: Sepsis with bloody diarrhea and colitis. EMERGENT Consult: No Notified: Yes Date Notified: 10/12/24 Time Notified: 03:09 Method of Notification: ED Physician Initiated Consult: [employer] / Pulmonary Medicine Routine Consulting Provider: [facility]/Pulmonary Med Reason for Consult: Sepsis with bloody diarrhea and colitis evident on CT. EMERGENT Consult: No Notified: Yes Date Notified: 10/12/24 Time Notified: 06:18 Method of Notification: Text Reason For Visit: SEPSIS WITH BLOODY DIARRHEA AND SEVERE COLITIS ON Diagnosis Discharge Diagnosis (1) Sepsis: Status: Acute Code(s): A41.9 - Sepsis, unspecified organism Qualifiers: Sepsis type: sepsis due to unspecified organism Sepsis acute organ dysfunction status: without acute organ dysfunction Qualified Code(s): A41.9 - Sepsis, unspecified organism Plan: POA. See H+P for criteria 2/2 colitis Follow up cultures (2) Colitis: Status: Acute Code(s): K52.9 - Noninfective gastroenteritis and colitis, unspecified Plan: Infectious v ischemic. on pip/tazo and metronidazole. Discharge with amoxicillin/clauvulonic acid. Follow up with gastroenterology for Biopsy results. (3) Bloody diarrhea: Status: Acute Code(s): R19.7 - Diarrhea, unspecified Plan: 2/2 colitis. Cannot qualify ABLA at this time, since last Hg in our system is from 2020. Will monitor. No need to transfuse unless Hg 7 or less. Continue to hold ASA. EGD showed non-bleeding gastic and duodenal ulcers. Sigmoidoscopy showed diffuse moderate inflammation in the rectu, rectosigmoid colon and the sigmoid colon. Biopsies performed. (4) NABILA (acute kidney injury): Status: Acute Code(s): N17.9 - Acute kidney failure, unspecified Plan: Resolved. Likely 2/2 dehydration. (5) Syncope and collapse: Status: Acute Code(s): R55 - Syncope and collapse Plan: likely vasovagal from colitis monitor. echo shows an EF 75%. Severe biatrial dilation. Plan Chronic conditions: * Essential Hypertension; on losartan and torsemide - Held 2/2 NABILA/CKD * Hyperlipidemia; rosuvastatin held * Hypothyroidism; on levothyroxine 125 at home. Notified by pharmacy that they do not do IV daily dosing of levothyroxine. Instead, they wait 7 days and then do a every 3-day dosing of the larger dose of levothyroxine so as not to waste levothyroxine as it is expensive. With that being said, I do not anticipate the patient is going to be n.p.o. for 7 days and since that is the policy will resume oral medications when we are able. * DM-2; diet controlled currently not on pharmacologic treatment - Check HgbA1c this admission to objectively assess quality of diabetic control. * History of COPD; on as needed albuterol and daily Trelegy Ellipta previously followed by Dr. Chang Galvez of pulmonology - Maintain current regimen with no signs of acute flare at this time. * Chronic KLEBER; on ferrous sulfate daily. Iron low with abnormally normal ferritin. Will given dose of IV iron. Constipation: recommended daily miralax and PRN Dulcolax. DW patient's sons at bedside. Medications at Discharge Home Medications gabapentin 400 mg capsule 800 mg PO QHS pain 10/05/15 levothyroxine 125 mcg tablet 125 mcg PO DAILY thyroid 10/05/15 aspirin 81 mg tablet,delayed release (Adult Low Dose Aspirin) 81 mg PO DAILY 10/16/22 Held on 10/13/24. Instructions: Resume on 10/15/24. cholecalciferol (vitamin D3) 25 mcg (1,000 unit) capsule 25 mcg PO DAILY 10/16/22 albuterol sulfate 90 mcg/actuation aerosol inhaler 2 inh inhalation Q4H PRN shortness of breath or wheezing 10/11/24 ascorbic acid (vitamin C) 1,000 mg capsule 1 g PO DAILY 10/11/24 bupropion HCl 150 mg 24 hr tablet, extended release 150 mg PO DAILY 10/11/24 ferrous sulfate 325 mg (65 mg iron) tablet (FeroSul) 325 mg PO QODAY 10/11/24 fluticasone fur. 100 mcg-umeclid 62.5 mcg-vilant 25 mcg inhalat.powder (Trelegy Ellipta) 1 inh inhalation DAILY 10/11/24 isosorbide mononitrate 60 mg tablet,extended release 24 hr 60 mg PO DAILY 10/11/24 losartan 100 mg tablet 100 mg PO DAILY 10/11/24 meclizine 12.5 mg tablet 12.5 mg PO DAILY PRN dizziness 10/11/24 omega-3 fatty acids 1,000 mg capsule 668 mg PO DAILY 10/11/24 ondansetron 4 mg disintegrating tablet 4 mg PO Q6H PRN nausea and vomiting 10/11/24 potassium chloride 10 mEq tablet,extended release(part/cryst) 10 meq PO BID 10/11/24 ropinirole 1 mg tablet 2 mg PO DAILY 10/11/24 rosuvastatin 20 mg tablet 20 mg PO QHS 10/11/24 torsemide 20 mg tablet 20 mg PO DAILY 10/11/24 amoxicillin 875 mg-potassium clavulanate 125 mg tablet 1 tab PO BID #10 tabs 10/13/24 bisacodyl 5 mg tablet 5 mg PO QHS PRN constipation 2 days #2 tabs 10/13/24 polyethylene glycol 3350 17 gram/dose oral powder (Miralax) 17 g PO DAILY #119 grams 10/13/24 Hospital Course Procedures Colonoscopy Summary of Care Provided Minutes Spent on Discharge: 40 Weight / BMI Weight Weight: 81.4 kg Body Mass Index (BMI) 35.2 ABG / Lab / Microbiology Data 10/13/24 07:38 10/13/24 07:38 Laboratory: Laboratory Results - last 24 hr 10/13/24 07:38: WBC 8.5, RBC 3.82 L, Hgb 11.2 L, Hct 37.3, MCV 97.6, MCH 29.3, M CHC 30.0 L D, RDW Std Deviation 52.3 H, RDW Coeff of Micky 14.6, Plt Count 178, MPV 11.0, Immature Gran % (Auto) 0.500, Neut % (Auto) 70.2 H, Lymph % (Auto) 17.4 L, [place] % (Auto) 5.8, Eos % (Auto) 5.5 H, Baso % (Auto) 0.6, Absolute Neuts (auto) 6.0, Absolute Lymphs (auto) 1.48, Nucleated RBC % 0, Sodium 142, Potassium 3.8, Chloride 114 H, Carbon Dioxide 25.0, Anion Gap 3 L, BUN 18, C reatinine 1.11 H, Estim Creat Clear Calc 36.29, Est GFR (MDRD) Af Amer 60, Est GFR (MDRD) Non-Af 50 L, BUN/Creatinine Ratio 16.2, Glucose 82, Calcium 8.7 Microbiology: Microbiology 10/11/24 22:35 Urine, Catheterized Urine Culture - Preliminary Culture exhibits no growth. 10/11/24 23:36 Stool Stool Occult Blood (JONNY) - Final Occult Blood Positive 10/11/24 22:25 Mucosa - Nose SARS-CoV-2, Influenza & RSV (PCR) - Final Radiography Diagnostic Testing: Radiology Impression Echocardiogram 10/12/24 03:12 Interpretation Summary Left ventricular systolic function is hyperdynamic. The estimated ejection fraction is 75 %. There is severe biatrial dilatation. Mild (1+) mitral valve insufficiency. Unable to assess diastolic dysfunction. Ordering Physician: Kiran Perry Performed By: Meggan Berg RDCS D/C Instructions Discharge Diet: No restrictions DC O2, CPAP, BIPAP Needs Home O2 Discharge instructions: No Meaningful Use Info Meaningful Use Meaningful Use Diagnoses (Choose all that apply): None applicable Ischemic Stroke Statin Dosing Therapy Reference: STATIN DOSE THERAPY REFERENCE: * Patients > 75 years receive moderate or high dose statin therapy. * Patients 75 years or YOUNGER should receive HIGH intensity statin dose unless contraindicated. You will be required to document reason for non-treatment if statin daily dose does not meet guidelines. HIGH DOSE STATIN THERAPY DAILY Atorvastatin > than or = to 40 mg Rosuvastatin > than or = to 20 mg Amlodipine + Atorvastatin > than or = to 2.5/40 mg Ezetimibe + Simvastatin 10/80 mg Simvastatin 80mg Discharge Plan Admission Admit Date/Time: 10/12/24 03:04 Primary Reason for Your Visit: Colitis Attending Provider: Fabrice Bolanos Primary Care Provider: Emely Martinez Consulting Providers: Kiran Perry Instructions Additional Instructions / Restrictions: You had colitis (inflammation of your colon). It is unclear what caused it, but I suspect it may have been ischemic. Dr. Ridley did some biopsies of you colon. Please follow up with him for those results. Discharge Orders/Prescriptions Prescriptions: New amoxicillin-pot clavulanate 875-125 mg tablet 1 tab PO BID Qty: 10 0RF polyethylene glycol 3350 [Miralax] 17 gram/dose powder 17 g PO DAILY Qty: 119 0RF Rx Instructions: hold for loose stools. Over the counter, no prescription required. bisacodyl 5 mg tablet 5 mg PO QHS PRN (Reason: constipation) 2 Days Qty: 2 0RF Continued cholecalciferol (vitamin D3) 25 mcg (1,000 unit) capsule 25 mcg PO DAILY gabapentin 400 MG capsule 800 mg PO QHS levothyroxine 125 MCG tablet 125 mcg PO DAILY isosorbide mononitrate 60 mg tablet extended release 24 hr 60 mg PO DAILY rosuvastatin 20 mg tablet 20 mg PO QHS torsemide 20 mg tablet 20 mg PO DAILY albuterol sulfate 90 mcg/actuation HFA aerosol inhaler 2 inh inhalation Q4H PRN (Reason: shortness of breath or wheezing) ascorbic acid (vitamin C) 1,000 mg capsule 1 g PO DAILY ferrous sulfate [FeroSul] 325 mg (65 mg iron) tablet 325 mg PO QODAY Trelegy Ellipta 100-62.5-25 mcg blister with device 1 inh inhalation DAILY losartan 100 mg tablet 100 mg PO DAILY meclizine 12.5 mg tablet 12.5 mg PO DAILY PRN (Reason: dizziness) ondansetron 4 mg tablet,disintegrating 4 mg PO Q6H PRN (Reason: nausea and vomiting) potassium chloride 10 mEq tablet,ER particles/crystals 10 meq PO BID ropinirole 1 mg tablet 2 mg PO DAILY bupropion HCl 150 mg tablet extended release 24 hr 150 mg PO DAILY omega-3 fatty acids 1,000 mg capsule 668 mg PO DAILY Held aspirin [Adult Low Dose Aspirin] 81 mg tablet,delayed release (DR/EC) 81 mg PO DAILY Hold Instructions: Resume on 10/15/24. Referrals / Follow Up: [facility] [Provider Group] - Within 1 Month Emely Martinez PA [Primary Care Provider] - Within 2 Weeks Disposition Disposition (needs filled in before D/C Order can be placed): Home, Self Care Charges/Coding Visit Charges Inpatient E&M: 02106 Disch Hosp >30min
--- NOTE | 2024-10-13 17:17 | PCM.PN.BLA ---
Progress Note Patient underwent an upper or lower endoscopy yesterday. She is not have any signs and symptoms of bleeding today. Physical Exam Narrative Very pleasant 84-year-old woman Const alert, oriented x3, no apparent distress and healthy appearing General Appearance: cooperative GI normal to inspection, nondistended, normoactive bowel sounds, soft to palpation, non-tender and non-distended Percussion: normal to percussion Rectal Exam: deferred Assessment & Plan Assessment/Plan (1) Sepsis: QUALIFIERS: Sepsis type: sepsis due to unspecified organism Sepsis acute organ dysfunction status: without acute organ dysfunction Qualified Code(s): A41.9 - Sepsis, unspecified organism (2) Colitis: (3) Bloody diarrhea: (4) Bright red blood per rectum: (5) Adverse drug reaction: QUALIFIERS: Encounter type: initial encounter Qualified Code(s): T50.905A - Adverse effect of unspecified drugs, medicaments and biological substances, initial encounter (6) Lactic acidosis: (7) Leukocytosis: QUALIFIERS: Leukocytosis type: unspecified Qualified Code(s): D72.829 - Elevated white blood cell count, unspecified (8) NABILA (acute kidney injury): (9) Acute blood loss anemia (ABLA): (10) Syncope and collapse: PLAN: Plan 87-year-old presents with abdominal pain followed by nausea vomiting and diarrhea which turned into bloody Diarrhea. CT evidence of circumferential wall thickening of the rectum, sigmoid colon, descending colon and transverse colon with pericolonic stranding likely related to acute colitis on an infectious/inflammatory or ischemic. Agree with continuing antibiotics. Stool studies have been negative thus far for infectious etiology such as Shigella, Salmonella, Yersinia, E. coli. She should undergo an upper endoscopy to rule out upper GI bleed with rapid transit and flexible sigmoidoscopy with biopsies to confirm ischemia and also to grade the length and severity of injury to see if that she is likely to have stricture or sequela from severe colitis. Unless on a differential diagnosis his first episode of ulcerative colitis. 10/13/2024- Findings: The examined esophagus was normal. A large hiatal hernia was present. Many non-bleeding linear gastric ulcers with no stigmata of bleeding were found in the gastric body. The largest lesion was 4 mm in largest dimension. Biopsies were taken with a cold forceps for histology. Verification of patient identification for the specimen was done. Estimated blood loss was minimal. Biopsies were taken with a cold forceps for Helicobacter pylori testing. Verification of patient identification for the specimen was done. Estimated blood loss was minimal. Few non-bleeding cratered duodenal ulcers with no stigmata of bleeding were found in the duodenal bulb. The largest lesion was 4 mm in largest dimension. Impression: - Normal esophagus. - Large hiatal hernia. - Non-bleeding gastric ulcers with no stigmata of bleeding. Biopsied. - Non-bleeding duodenal ulcers with no stigmata of bleeding. Findings: Flexible sigmoidoscopy The perianal and digital rectal examinations were normal. Diffuse moderate inflammation characterized by erythema, friability, granularity, linear erosions and confluent ulcerations was found in the rectum, in the recto-sigmoid colon, in the sigmoid colon, in the descending colon, at the splenic flexure and in the transverse colon. Biopsies were taken with a cold forceps for histology. Verification of patient identification for the specimen was done. Estimated blood loss was minimal. A few small-mouthed diverticula were found in the recto-sigmoid colon, sigmoid colon and descending colon. Impression: - No specimens collected. Recommendation: - Use original regular Metamucil one teaspoon Awaiting H. pylori status. Patient can go on antiplatelets or anticoagulation on 10/15/2024 if needed. Visit Charges Inpatient E&M: 64781 Subs Hosp L3
== END 2024-10-13 18:20 | disposition home or self-care (01) | DRG 871 ==
LOC: ED 10-12 02:47 → ICU 10-12 04:10
PROVIDERS: Internal Medicine Critical Care Medicine; Internal Medicine Gastroenterology; Admitting Provider Internal Medicine; Emergency Provider Emergency Medicine
PROC: 0DJD8ZZ Inspection of Lower Intestinal Tract, Via Natural or Artificial Opening Endoscopic (ICD-10-PCS; CPT 45378; principal; 2024-10-12 16:35)
DX: A41.9 Sepsis, unspecified organism (principal); K55.039 Acute (reversible) ischemia of large intestine, extent unspecified; D68.32 Hemorrhagic disorder due to extrinsic circulating anticoagulants; K62.6 Ulcer of anus and rectum; N17.9 Acute kidney failure, unspecified; I13.0 Hypertensive heart and chronic kidney disease with heart failure and stage 1 through stage 4 chronic kidney disease, or unspecified chronic kidney disease; A09 Infectious gastroenteritis and colitis, unspecified; K26.9 Duodenal ulcer, unspecified as acute or chronic, without hemorrhage or perforation; E11.22 Type 2 diabetes mellitus with diabetic chronic kidney disease; D50.9 Iron deficiency anemia, unspecified; J44.9 Chronic obstructive pulmonary disease, unspecified; M06.9 Rheumatoid arthritis, unspecified; E03.9 Hypothyroidism, unspecified; N18.9 Chronic kidney disease, unspecified; E66.9 Obesity, unspecified; K57.30 Diverticulosis of large intestine without perforation or abscess without bleeding; E11.40 Type 2 diabetes mellitus with diabetic neuropathy, unspecified; I50.9 Heart failure, unspecified; E78.5 Hyperlipidemia, unspecified; K44.9 Diaphragmatic hernia without obstruction or gangrene; E86.1 Hypovolemia; E86.0 Dehydration; K25.9 Gastric ulcer, unspecified as acute or chronic, without hemorrhage or perforation; T39.015A Adverse effect of aspirin, initial encounter; R55 Syncope and collapse; Z68.30 Body mass index [BMI] 30.0-30.9, adult; Z79.82 Long term (current) use of aspirin; Z79.51 Long term (current) use of inhaled steroids; Z79.890 Hormone replacement therapy; Z79.899 Other long term (current) drug therapy
CPT/HCPCS: 71046; 74174; 80048; 80053; 81001; 82274; 82728; 83036; 83540; 83550; 83605; 83880; 84443; 84484; 85025; 85610; 85730; 87040; 87086; 87631; 88305; 88342; 93005; 93306; 94640; 94762; 97166; 99285; Q9967; A4216; J2405; J2916

== ENCOUNTER → 2024-11-15 | Outpatient (CLI) | payer MEDICARE, BC, SELFPAY ==
[2024-11-15 17:27] LABS: Absolute Lymphocyte Count 1.94 X10^3/uL (0.83-4.51); Absolute Neutrophil Count 5.3 X10^3/uL (2.0-7.7); Basophil# 0.05 X10^3/uL; Basophil% 0.6 % (0-1); Eosinophil# 0.25 X10^3/uL; Eosinophils% 3.1 % (0-5); Hematocrit 39.8 % (37-47); Hemoglobin 12.9 g/dL (12.0-15.0); Lymphocyte # 1.94 X10^3/ul (0.83-4.51); Lymphocyte % 23.9 % (19-41); Mean Corp Hgb Conc 32.4 g/dL (32-36); Mean Corpuscular Hgb 30.1 pg (27.0-32.0); Mean Platelet Vol. 10.6 fl (6.2-12.0); Monocyte# 0.61 X10^3/uL; Monocyte% 7.5 % (0-10); NRBC Flagged by Analyzer 0 % (0-5); Neutrophil # 5.25 X10^3/uL (2.7-7.7); Neutrophil % 64.7 % (47-70); Platelet Count 187 K/mm3 (150-450); RBC Distribution Width CV 13.8 % (11.6-14.6); RBC Distribution Width SD 47.7 fl (35.1-43.9); Red Blood Count 4.28 M/mm3 (4.2-5.4); White Blood Count 8.1 K/mm3 (4.4-11.0)
== END | disposition home or self-care (01) ==
LOC: LAB 16:44
PROVIDERS: Referring Provider Nurse Practitioner Acute Care; Visit Provider Nurse Practitioner Acute Care
DX: D64.9 Anemia, unspecified (principal)
CPT/HCPCS: 36415; 85025

== ENCOUNTER → 2024-12-15 | Outpatient (CLI) | payer MEDICARE, BC, SELFPAY ==
--- NOTE | 2024-12-15 08:51 | RDU_ITS ---
Reason For Study Reason For Study: Epigastric Pain Aorta Unable to visualize Prox AO - Celiac A - Hepatic A - Splenic A - SMA JESUS Due to bowel gas. AO Mid PSV - 62.0 cm/s AO Dist PSV - 86.9 cm/s SMA Prox PSV - 104.5 cm/s SMA Mid PSV - 93.5 cm/s SMA Dist PSV - 128.6 cm/s CELSO Prox PSV - 83.1 cm/s. Procedures Mesenteric Artery Duplex with B-Mode, Color Doppler and Pulsed Wave Doppler. Limited Views Obtained. Incomplete exam due to bowel gas. VL/Mesenteric Artery Duplex Interpretation Summary Celiac artery not visualized due to bowel gas Superior mesenteric artery patent with normal velocities, <70% stenosis Inferior mesenteric artery patent with normal velocities, <70% stenosis Ordering Physician: Maribel Cee Referring Physician: Emely Martinez Performed By: Benny Adhikari RVT
== END | disposition home or self-care (01) ==
LOC: CVS 08:50
PROVIDERS: Referring Provider Nurse Practitioner Acute Care; Visit Provider Nurse Practitioner Acute Care
DX: R10.13 Epigastric pain (principal)
CPT/HCPCS: 93975